=== PATIENT | male | born 1930 ===

== ENCOUNTER 2018-01-26 15:54 | Inpatient (IN) | payer MEDICARE, OTHER ==
[2018-01-26] MEDS ORDERED: Sodium Chloride 0.9% 1,000 ML IV SCH (17:15)
[2018-01-26 17:21] LABS: BASO % 1.1 % (0.0-2.0); EOS % 0.8 % (0.0-4.0); HEMOGLOBIN 12.2 g/dL (12.0-18.0); LYMPH # 0.6 K/uL (1.0-4.3); LYMPH % 67.7 % (20.0-40.0); MEAN CELL VOLUME 91.9 fL (80.0-94.0); MEAN CORPUSCULAR HEMOGLOBIN 31.2 pg (27.0-31.0); MEAN PLATELET VOLUME 8.6 fL (7.2-11.7); MONO % 5.4 % (0.0-10.0); NEUT # 0.2 K/uL (1.8-7.0); NRBC % 0.2 % (0.0-2.0); RBC 3.93 Mil/uL (4.40-5.90); RED CELL DISTRIBUTION WIDTH 14.6 % (11.5-14.5)
[2018-01-26 17:24] LABS: WHITE BLOOD COUNT 0.9 K/uL (4.8-10.8)
[2018-01-26 17:25] LABS: INR 1.1; PROTHROMBIN TIME 11.8 SECONDS (9.7-12.2)
[2018-01-26 17:32] LABS: ALB/GLOB RATIO 1.3 (1.0-2.1); ALBUMIN 4.2 g/dL (3.5-5.0); ALT/SGPT 26 U/L (21-72); AST/SGOT 28 U/L (17-59); BLOOD UREA NITROGEN 24 mg/dL (9-20); CALCIUM 8.8 mg/dl (8.6-10.4); GFR AFRICAN-AMERICAN > 60; GFR NON-AFRICAN AMERICAN > 60
--- NOTE | 2018-01-26 17:52 | C.PDOC ---
History Of Present Illness 87 y/o male, w/PMHX of HTN and CLL, presents to the ER complaining of weakness and decreased appetite x 3 days. Also notes he has been having left sided neck pain and abdominal pain, notes he has had this pain intermittently for the last month. Had a normal BM today. Pt was put on low dose chemotherapy x 2 cycles. His initial WBC was 90 K and his WBC is 1.2 K now. Patient reports that he was seen by a a manufacturing scheduler, Dr. Patel today and he was instructed to come to the ER for further evaluation. Time Seen by Provider: 01/26/18 16:39 Chief Complaint (Nursing): Weakness/Neurological Deficit History Per: [employer] History/Exam Limitations: clinical condition, language barrier Onset/Duration Of Symptoms: Days Current Symptoms Are (Timing): Still Present Severity: Moderate Past Medical History Reviewed: Historical Data, Nursing Documentation, Vital Signs Vital Signs: Last Vital Signs Temp 97.9 F 01/26/18 16:31 Pulse 77 01/26/18 18:20 Resp 18 01/26/18 18:20 BP 114/63 01/26/18 18:20 Pulse Ox 100 01/26/18 18:20 - Medical History PMH: Gall Bladder Disease, HTN, Hypercholesterolemia, Malignancy (Chronic lymphocytic leukemia) Surgical History: Cholecystectomy Family History: States: No Known Family Hx - Social History Hx Alcohol Use: No Hx Substance Use: No - Immunization History Hx Influenza Vaccination: Yes Hx Pneumococcal Vaccination: Yes Review Of Systems Except As Marked, All Systems Reviewed And Found Negative. Constitutional: Positive for: Weakness. Negative for: Fever, Chills Gastrointestinal: Positive for: Abdominal Pain Musculoskeletal: Positive for: Neck Pain Physical Exam - Physical Exam Appears: Non-toxic, No Acute Distress, Chronically Ill Skin: Normal Color, Warm, Dry Head: Atraumatic, Normacephalic Eye(s): bilateral: Normal Inspection, EOMI Nose: Normal Oral Mucosa: Moist Neck: Normal ROM, Paracervical Tenderness ((+) left sided paracervical tenderness), Supple Lymphatic: Adenopathy (? left sided cervical lymphadenopathy) Chest: Symmetrical Cardiovascular: Rhythm Regular Respiratory: Normal Breath Sounds, No Rales, No Rhonchi, No Wheezing Gastrointestinal/Abdominal: Soft, Tenderness (diffuse tenderness), Distention ( distended) Extremity: Normal ROM Neurological/Psych: Oriented x3, Normal Speech ED Course And Treatment - Laboratory Results Result Diagrams: 01/26/18 17:14 01/26/18 17:14 O2 Sat by Pulse Oximetry: 100 (RA) Pulse Ox Interpretation: Normal - CT Scan/US CT- Abd & Pelv. Other Rad Studies (CT/US): Read By Radiologist, Radiology Report Reviewed CT/US Interpretation: PROCEDURE: Radiographs of the chest and abdomen ( obstructive series). HISTORY: Abd Pain. COMPARISON: No prior. TECHNIQUE: AP radiograph of the chest, with upright and supine radiographs of the abdomen. FINDINGS: CHEST: Lungs: Clear. Cardiovascular: Normal size heart. No pulmonary vascular congestion. Pleura: No pleural fluid. No pneumothorax. Other findings: None. ABDOMEN AND PELVIS: Bowel: Unremarkable bowel gas pattern. No evidence of mechanical obstruction. Free air: None. Bones: Unremarkable. Other findings: None. IMPRESSION: Unremarkable radiographs of chest and abdomen. No evidence of mechanical bowel obstruction. Progress Note: Case discussed with Dr. Patel who requests admission under the service of Dr. Camarillo. Also orders Granix as ordered. Dr. Patel will be on consult. Case discussed with Dr Camarillo, who evaluated pt in ED. Neck and abd CT ordered. Disposition - Disposition Disposition Time: 18:00 Condition: STABLE - Clinical Impression Clinical Impression: CLL (chronic lymphocytic leukemia), Dehydration, Abdominal pain, Neutropenia, Leukopenia - PA / CARE TRAINER / Resident Statement MD/DO has reviewed & agrees with the documentation as recorded. - Scribe Statement The provider has reviewed the documentation as recorded by the Grant Castillo Provider Attestation All medical record entries made by the Grant were at my direction and personally dictated by me. I have reviewed the chart and agree that the record accurately reflects my personal performance of the history, physical exam, medical decision making, and the department course for this patient. I have also personally directed, reviewed, and agree with the discharge instructions and disposition.
[2018-01-26 18:03] LABS: SQUAMOUS EPITHIAL 1 /hpf (0-5); URINE BILIRUBIN NEGATIVE (NEGATIVE); URINE BLOOD NEGATIVE (NEGATIVE); URINE CLARITY Hazy (Clear); URINE COLOR Yellow (YELLOW); URINE GLUCOSE (UA) NORMAL (Normal); URINE LEUKOCYTE ESTERASE NEG Leu/uL (Negative); URINE PROTEIN NEGATIVE (NEGATIVE); URINE UROBILINOGEN NORMAL mg/dL (0.2-1.0)
[2018-01-26] MEDS ORDERED: Sodium Chloride 0.9% 1,000 ML ONE (18:19)
[2018-01-26 18:20] LABS: CK-MB < 0.22 ng/mL (0.0-3.38)
--- NOTE | 2018-01-26 18:29 | CP.PCM.HP ---
History of Present Illness - History of Present Illness History of Present Illness: Chief complaint: Weakness History of present illness: 87-year-old male with a history of hypertension and recently diagnosed with CLL and associated lymphadenopathy, status post chemotherapy 1 week ago. Patient went to see oncologist to today. While he was there he was complaining of at least 3-4 days of weakness, fatigability, tiredness. He was also accompanied of difficulty in swallowing, neck pain, diffuse abdominal pain. Episodes of constipation and diarrhea noted. According to the patient's who speaks only Russian patient was having symptoms for at least 3 days. He is not eating well. His blood pressures on the low side compared to his hypertensive blood pressure. He has no appetite, chills present, no fever. He has no headache, neck pain and abdominal pain diffusely noted Present on Admission - Present on Admission Any Indicators Present on Admission: No History of DVT/PE: No History of Uncontrolled Diabetes: No Urinary Catheter: No Decubitus Ulcer Present: No Review of Systems - Review of Systems Review of Systems: Patient complaining of some neck pain, especially in the back of the neck and radiating to the shoulder. Complaining of abdominal diffuse pain. Nausea, but no vomiting. Poor appetite and poor intake for 3 days. Constipation and diarrhea noted. No leg swelling. No urinary symptoms. Denies any chest pain, no cough noted. No recent sick exposure. Patient was recently received a chemotherapy for CLL Past Patient History - Tetanus Immunizations Tetanus Immunization: Unknown - Past Social History Smoking Status: Never Smoked Chewing Tobacco Use: No Cigar Use: No Alcohol: None Home Situation {Lives}: With Family - CARDIAC Hx Hypercholesterolemia: Yes Hx Hypertension: Yes - HEENT Hx Glaucoma: Yes - HEMATOLOGICAL/ONCOLOGICAL Hx Blood Disorders: Yes Hx Cancer: Yes (leukemia) - GASTROINTESTINAL Hx Gall Bladder Disease: Yes (status post gallbladder cholecystectomy) - PSYCHIATRIC Hx Substance Use: No - SURGICAL HISTORY Hx Cholecystectomy: Yes - ANESTHESIA Hx Anesthesia: Yes Hx Anesthesia Reactions: No Hx Malignant Hyperthermia: No Meds Allergies/Adverse Reactions: Allergies Allergy/AdvReac Type Severity Reaction Status Date / Time No Known Allergies Allergy Verified 01/26/18 16:30 Physical Exam - Constitutional Additional comments: The patient is not in any distress. No oral thrush noted. Not tachycardic at this time. Blood pressure is on the low side. Chest good air entry bilaterally no wheezing noted Regular heart sound nontender abdomen no pedal edema seen a solitary client attends the functional neurological deficit Results - Vital Signs Recent Vital Signs: Last Vital Signs Temp 97.9 F 01/26/18 16:31 Pulse 81 01/26/18 16:31 Resp 18 01/26/18 16:31 BP 106/71 01/26/18 16:31 Pulse Ox 100 01/26/18 17:59 - Labs Result Diagrams: 01/26/18 17:14 01/26/18 17:14 Labs: Laboratory Results - last 24 hr 01/26/18 01/26/18 01/26/18 17:14 17:14 17:14 WBC 0.9 L* RBC 3.93 L Hgb 12.2 Hct 36.1 MCV 91.9 MCH 31.2 H MCHC 34.0 RDW 14.6 H Plt Count 172 MPV 8.6 Neut % (Auto) 25.0 L Lymph % (Auto) 67.7 H [place] % (Auto) 5.4 Eos % (Auto) 0.8 Baso % (Auto) 1.1 Neut # (Auto) 0.2 L Lymph # (Auto) 0.6 L [place] # (Auto) 0.0 Eos # (Auto) 0.0 Baso # (Auto) 0.0 PT 11.8 INR 1.1 APTT 28 Sodium 142 Potassium 4.4 Chloride 102 Carbon Dioxide 24 Anion Gap 20 BUN 24 H Creatinine 0.9 Est GFR ( Amer) > 60 Est GFR (Non-Af Amer) > 60 Random Glucose 125 H Calcium 8.8 Total Bilirubin 0.9 AST 28 ALT 26 Alkaline Phosphatase 157 H D Lactate Dehydrogenase Total Creatine Kinase CK-MB (Mass) Troponin I Total Protein 7.3 Albumin 4.2 Globulin 3.1 Albumin/Globulin Ratio 1.3 Urine Color Urine Clarity Urine pH Ur Specific [place] Urine Protein Urine Glucose (UA) Urine Ketones Urine Blood Urine Nitrate Urine Bilirubin Urine Urobilinogen Ur Leukocyte Esterase Urine WBC (Auto) Urine RBC (Auto) Ur Squamous Epith Cells Hyaline Casts 01/26/18 01/26/18 17:45 17:45 WBC RBC Hgb Hct MCV MCH MCHC RDW Plt Count MPV Neut % (Auto) Lymph % (Auto) [place] % (Auto) Eos % (Auto) Baso % (Auto) Neut # (Auto) Lymph # (Auto) [place] # (Auto) Eos # (Auto) Baso # (Auto) PT INR APTT Sodium Potassium Chloride Carbon Dioxide Anion Gap BUN Creatinine Est GFR ( Amer) Est GFR (Non-Af Amer) Random Glucose Calcium Total Bilirubin AST ALT Alkaline Phosphatase Lactate Dehydrogenase 1040 H Total Creatine Kinase < 20 L CK-MB (Mass) < 0.22 Troponin I < 0.0120 Total Protein Albumin Globulin Albumin/Globulin Ratio Urine Color Yellow Urine Clarity Hazy Urine pH 5.0 Ur Specific [place] 1.018 Urine Protein Negative Urine Glucose (UA) Normal Urine Ketones Negative Urine Blood Negative Urine Nitrate Negative Urine Bilirubin Negative Urine Urobilinogen Normal Ur Leukocyte Esterase Neg Urine WBC (Auto) 4 Urine RBC (Auto) 1 Ur Squamous Epith Cells 1 Hyaline Casts 11-20 H Assessment & Plan (1) Colitis Status: Acute (2) Abdominal pain Status: Acute (3) Lymphoma Status: Acute (4) Neutropenia associated with gastrointestinal mucositis Assessment and Plan: 86-year-old male recently received a chemotherapy for her chronic lymphoid leukemia with lymphadenopathy P Patient is now having neutropenia, unexplained. Hypotension unexplained. Underlying sepsis cannot be ruled out, dehydration possible. Will start the patient on intravenous IV fluid. A repeat blood works. Oncology evaluation. Will hold antibiotic for next 12 hours, and to see the improvement. Patient may need antibiotic if there is any worsening condition. Reverse isolation. And will follow-up the patient Status: Acute
[2018-01-26] MEDS: Sodium Chloride 0.9% 1,000 ML IV SCH (18:49)
[2018-01-26 18:56] LABS: URIC ACID 11.6 mg/dL (3.5-8.5)
[2018-01-26] MEDS ORDERED: Iohexol 240 (50 ml) PO ONE (18:56)
[2018-01-26] MEDS ORDERED: Iohexol 240 (50 ml) ONE (19:24)
[2018-01-27 07:33] VITALS: RESP 20
[2018-01-27 07:53] LABS: HEMOGLOBIN 11.4 g/dL (12.0-18.0); MEAN CORPUSCULAR HEMOGLOBIN 31.7 pg (27.0-31.0); MEAN CORPUSCULAR HGB CONC 34.5 g/dL (33.0-37.0); MEAN PLATELET VOLUME 8.7 fL (7.2-11.7); PLATELET COUNT 137 K/uL (130-400); RED CELL DISTRIBUTION WIDTH 14.7 % (11.5-14.5)
[2018-01-27 07:56] LABS: WHITE BLOOD COUNT 0.8 K/uL (4.8-10.8)
[2018-01-27 08:00] LABS: ALB/GLOB RATIO 1.3 (1.0-2.1); ALBUMIN 3.7 g/dL (3.5-5.0); ALT/SGPT 27 U/L (21-72); AST/SGOT 25 U/L (17-59); BLOOD UREA NITROGEN 19 mg/dL (9-20); CALCIUM 8.7 mg/dl (8.6-10.4); GFR AFRICAN-AMERICAN > 60; GFR NON-AFRICAN AMERICAN > 60
[2018-01-27] MEDS: Sodium Chloride 0.9% 1,000 ML IV SCH ×2 (08:25→21:46)
[2018-01-27 09:48] LABS: LYMPH # 0.4 K/uL (1.0-4.3); NEUT # 0.3 K/uL (1.8-7.0)
[2018-01-27 09:50] LABS: BASOPHIL 4 % (0-2); EOSINOPHIL 2 % (0-4); LYMPHOCYTE 50 % (20-40); MONOCYTE 4 % (0-10); NEUTROPHIL 40 % (50-75); PLATELET ESTIMATE NORMAL (NORMAL); TOTAL CELLS COUNTED 100
[2018-01-27 09:51] LABS: HYPOCHROMIC SLIGHT
--- NOTE | 2018-01-27 10:02 | CT ---
PROCEDURE: CT Abdomen and Pelvis without intravenous contrast HISTORY: lymphadenopathy, abdominal pain COMPARISON: None. TECHNIQUE: Technique. Contrast Dose: Radiation dose: Total exam DLP = Total exam DLP = mGy-cm. This CT exam was performed using one or more of the following dose reduction techniques: Automated exposure control, adjustment of the mA and/or kV according to patient size, and/or use of iterative reconstruction technique. FINDINGS: LOWER THORAX: Unremarkable. LIVER: Unremarkable. No gross lesion or ductal dilatation. GALLBLADDER AND BILE DUCTS: Status post cholecystectomy. PANCREAS: Unremarkable. No gross lesion or ductal dilatation. SPLEEN: Unremarkable. ADRENALS: Unremarkable. No mass. KIDNEYS AND URETERS: Bilateral renal cysts. . No hydronephrosis. No solid mass. VASCULATURE: Unremarkable. No aortic aneurysm. BOWEL: Large confluent lymph node mass in the central mesenteric suspicious for lymphoma with associated mild infiltrated changes in the surrounding mesenteric fat. APPENDIX: Unremarkable. Normal appendix. PERITONEUM: Unremarkable. No free fluid. No free air. LYMPH NODES: Unremarkable. No enlarged lymph nodes. BLADDER: Unremarkable. REPRODUCTIVE: Unremarkable. BONES: No acute fracture. OTHER FINDINGS: None. IMPRESSION: Large confluent lymph node mass in the central mesenteric suspicious for lymphoma with associated mild infiltrated changes in the surrounding mesenteric fat.
--- NOTE | 2018-01-27 10:40 | CT ---
PROCEDURE: CT NECK WITHOUT CONTRAST HISTORY: paraspinal spasm, lymphadenopathy COMPARISON: None. TECHNIQUE: CT of the neck without intravenous contrast. Coronal and sagittal reformats generated. Radiation dose: DLP 435.22 mGy-cm This CT exam was performed using one or more of the following dose reduction techniques: Automated exposure control, adjustment of the mA and/or kV according to patient size, and/or use of iterative reconstruction technique. FINDINGS: NASOPHARYNX: Unremarkable. SUPRAHYOID NECK: Unremarkable oropharynx, oral cavity, parapharyngeal space and retropharyngeal space. INFRAHYOID NECK: Unremarkable larynx, hypopharynx, and supraglottic space. Vocal cords intact. MASS: None. GLANDS: Parotid and submandibular glands unremarkable. Normal size thyroid gland, without nodule. LYMPH NODES: [place] level 1 and 2 cervical nodes. No substantially enlarged cervical lymph nodes (> than 1.5 centimeter short axis). CERVICAL SPINE: No fracture. 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 OTHER FINDINGS: No significant cervical lymphadenopathy. IMPRESSION: Unremarkable non-contrast enhanced CT of the neck.
--- NOTE | 2018-01-27 12:49 | CARD ---
APPROVED REPORT EKG Measurement Heart [id number] <Conclusion> Normal sinus rhythm Left axis deviation Voltage criteria for left ventricular hypertrophy Abnormal ECG
--- NOTE | 2018-01-27 17:02 | CP.PCM.CON ---
History of Present Illness - History of Present Illness History of Present Illness: 87 yo man with newly diagnosed Chronic lymphocytic leukemia, when he presented with a WBC count of 90K, bulky lymph nodes, s/p treatment with Treanda/Rituxan, seen in the office yesterday for follow up, found to be weak, c/o abdominal pain , poor appetite, CBC done showed severe neutropenia, admitted for IV hydration, neupogen and evaluation of abdominal pain. Denies fever, chills, nausea, vomiting, diarrhea, mouth sores or dysphagia. Past Patient History - Tetanus Immunizations Tetanus Immunization: Unknown - Past Medical History & Family History Past Medical History?: Yes - Past Social History Smoking Status: Never Smoked - CARDIAC Hx Cardiac Disorders: Yes Hx Hypercholesterolemia: Yes Hx Hypertension: Yes - PULMONARY Hx Respiratory Disorders: No - NEUROLOGICAL Hx Neurological Disorder: No - HEENT Hx HEENT Problems: Yes Hx Glaucoma: Yes - RENAL Hx Chronic Kidney Disease: No - ENDOCRINE/METABOLIC Hx Endocrine Disorders: No - HEMATOLOGICAL/ONCOLOGICAL Hx Blood Disorders: Yes Hx Cancer: Yes (leukemia) Hx Chemotherapy: Yes (1 week ago) - INTEGUMENTARY Hx Dermatological Problems: No - MUSCULOSKELETAL/RHEUMATOLOGICAL Hx Musculoskeletal Disorders: No Hx Falls: No - GASTROINTESTINAL Hx Gastrointestinal Disorders: Yes Hx Gall Bladder Disease: Yes - GENITOURINARY/GYNECOLOGICAL Hx Genitourinary Disorders: No - PSYCHIATRIC Hx Psychophysiologic Disorder: No Hx Substance Use: No - SURGICAL HISTORY Hx Surgeries: Yes Hx Cholecystectomy: Yes - ANESTHESIA Hx Anesthesia: Yes Hx Anesthesia Reactions: No Hx Malignant Hyperthermia: No Meds Allergies/Adverse Reactions: Allergies Allergy/AdvReac Type Severity Reaction Status Date / Time No Known Allergies Allergy Verified 01/26/18 16:30 - Medications Medications: Current Medications Heparin Sodium (Porcine) (Heparin) 5,000 units SC Q12 [facility] Last Admin: 01/27/18 10:37 Dose: 5,000 units Sodium Chloride (Sodium Chloride 0.9%) 1,000 mls @ 75 mls/hr IV .[id number] [facility] Last Admin: 01/27/18 08:25 Dose: Not Given Pantoprazole Sodium (Protonix Inj) 40 mg IVP DAILY [facility] Last Admin: 01/27/18 10:37 Dose: 40 mg Results - Vital Signs Recent Vital Signs: Last Vital Signs Temp 98.8 F 01/27/18 15:27 Pulse 87 01/27/18 15:27 Resp 20 05/08/18 15:27 BP 109/73 01/27/18 15:27 Pulse Ox 98 01/27/18 15:27 - Labs Result Diagrams: 01/27/18 07:35 01/27/18 07:35 Labs: Laboratory Results - last 24 hr 01/26/18 01/26/18 01/26/18 16:34 17:14 17:14 WBC 0.9 L* RBC 3.93 L Hgb 12.2 Hct 36.1 MCV 91.9 MCH 31.2 H MCHC 34.0 RDW 14.6 H Plt Count 172 MPV 8.6 Neut % (Auto) 25.0 L Lymph % (Auto) 67.7 H [place] % (Auto) 5.4 Eos % (Auto) 0.8 Baso % (Auto) 1.1 Neut # (Auto) 0.2 L Lymph # (Auto) 0.6 L [place] # (Auto) 0.0 Eos # (Auto) 0.0 Baso # (Auto) 0.0 Neutrophils % (Manual) Lymphocytes % (Manual) Monocytes % (Manual) Eosinophils % (Manual) Basophils % (Manual) Differential Comment Platelet Estimate Hypochromasia (manual) Smear Path Review PT INR APTT Sodium 142 Potassium 4.4 Chloride 102 Carbon Dioxide 24 Anion Gap 20 BUN 24 H Creatinine 0.9 Est GFR ( Amer) > 60 Est GFR (Non-Af Amer) > 60 POC Glucose (mg/dL) 148 H Random Glucose 125 H Uric Acid Calcium 8.8 Phosphorus Magnesium Total Bilirubin 0.9 AST 28 ALT 26 Alkaline Phosphatase 157 H D Lactate Dehydrogenase Total Creatine Kinase CK-MB (Mass) Troponin I Total Protein 7.3 Albumin 4.2 Globulin 3.1 Albumin/Globulin Ratio 1.3 Urine Color Urine Clarity Urine pH Ur Specific [place] Urine Protein Urine Glucose (UA) Urine Ketones Urine Blood Urine Nitrate Urine Bilirubin Urine Urobilinogen Ur Leukocyte Esterase Urine WBC (Auto) Urine RBC (Auto) Ur Squamous Epith Cells Hyaline Casts 01/26/18 01/26/18 01/26/18 17:14 17:45 17:45 WBC RBC Hgb Hct MCV MCH MCHC RDW Plt Count MPV Neut % (Auto) Lymph % (Auto) [place] % (Auto) Eos % (Auto) Baso % (Auto) Neut # (Auto) Lymph # (Auto) [place] # (Auto) Eos # (Auto) Baso # (Auto) Neutrophils % (Manual) Lymphocytes % (Manual) Monocytes % (Manual) Eosinophils % (Manual) Basophils % (Manual) Differential Comment Platelet Estimate Hypochromasia (manual) Smear Path Review PT 11.8 INR 1.1 APTT 28 Sodium Potassium Chloride Carbon Dioxide Anion Gap BUN Creatinine Est GFR ( Amer) Est GFR (Non-Af Amer) POC Glucose (mg/dL) Random Glucose Uric Acid Calcium Phosphorus Magnesium Total Bilirubin AST ALT Alkaline Phosphatase Lactate Dehydrogenase 1040 H Total Creatine Kinase < 20 L CK-MB (Mass) < 0.22 Troponin I < 0.0120 Total Protein Albumin Globulin Albumin/Globulin Ratio Urine Color Yellow Urine Clarity Hazy Urine pH 5.0 Ur Specific [place] 1.018 Urine Protein Negative Urine Glucose (UA) Normal Urine Ketones Negative Urine Blood Negative Urine Nitrate Negative Urine Bilirubin Negative Urine Urobilinogen Normal Ur Leukocyte Esterase Neg Urine WBC (Auto) 4 Urine RBC (Auto) 1 Ur Squamous Epith Cells 1 Hyaline Casts 11-20 H 01/26/18 01/27/18 01/27/18 18:45 07:35 07:35 WBC 0.8 L* RBC 3.60 L Hgb 11.4 L Hct 33.1 L MCV 92.0 MCH 31.7 H MCHC 34.5 RDW 14.7 H Plt Count 137 MPV 8.7 Neut % (Auto) 40.0 L Lymph % (Auto) 50.0 H [place] % (Auto) 4.0 Eos % (Auto) 2.0 Baso % (Auto) 4.0 H Neut # (Auto) 0.3 L Lymph # (Auto) 0.4 L [place] # (Auto) 0.0 Eos # (Auto) 0.0 Baso # (Auto) 0.0 Neutrophils % (Manual) 40 L Lymphocytes % (Manual) 50 H Monocytes % (Manual) 4 Eosinophils % (Manual) 2 Basophils % (Manual) 4 H Differential Comment Platelet Estimate Normal Hypochromasia (manual) Slight Smear Path Review PT INR APTT Sodium 141 Potassium 3.9 Chloride 106 Carbon Dioxide 25 Anion Gap 14 BUN 19 Creatinine 0.9 Est GFR ( Amer) > 60 Est GFR (Non-Af Amer) > 60 POC Glucose (mg/dL) Random Glucose 109 Uric Acid 11.6 H Calcium 8.7 Phosphorus 3.9 Magnesium 2.4 H Total Bilirubin 1.5 H AST 25 ALT 27 Alkaline Phosphatase 163 H Lactate Dehydrogenase 806 H Total Creatine Kinase < 20 L CK-MB (Mass) Troponin I Total Protein 6.5 Albumin 3.7 Globulin 2.8 Albumin/Globulin Ratio 1.3 Urine Color Urine Clarity Urine pH Ur Specific [place] Urine Protein Urine Glucose (UA) Urine Ketones Urine Blood Urine Nitrate Urine Bilirubin Urine Urobilinogen Ur Leukocyte Esterase Urine WBC (Auto) Urine RBC (Auto) Ur Squamous Epith Cells Hyaline Casts Assessment & Plan (1) CLL (chronic lymphocytic leukemia) Assessment and Plan: CLL with severe neutropenia associated with chemotherapy, admitted for IVF, neupogen, work up of abdominal pain. Status: Acute
--- NOTE | 2018-01-27 19:39 | CP.PCM.PN ---
Subjective - Date & Time of Evaluation Date of Evaluation: 01/27/18 Time of Evaluation: 19:38 - Subjective Subjective: Patient now having much improvement and abdominal pain. He is feeling a little better. He is eating well. But is still his white count is still on the low side. I spoke to the oncologist. Will closely monitor the patient. Diarrhea noted. No nausea no vomiting, no fever currently. Closely monitor the vital statistics , as long as there is no fever or any signs of infection we will hold off antibiotic. Objective - Vital Signs/Intake and Output Vital Signs (last 24 hours): Temp Pulse Resp BP Pulse Ox 98.8 F 87 20 109/73 98 01/27/18 15:27 01/27/18 15:27 01/27/18 15:27 01/27/18 15:27 01/27/18 15:27 Intake and Output: 01/27/18 01/28/18 18:59 06:59 Intake Total 1215 Balance 1215 Chest good air entry L house nontender, no pedal edema [employer] alert awake oriented 3 no functional neurologic deficit - Medications Medications: Current Medications Heparin Sodium (Porcine) (Heparin) 5,000 units SC Q12 REPLAC[facility] BY [facility] Last Admin: 01/27/18 10:37 Dose: 5,000 units Sodium Chloride (Sodium Chloride 0.9%) 1,000 mls @ 75 mls/hr IV .[id number] REPLACED BY [facility] Last Admin: 01/27/18 08:25 Dose: Not Given Pantoprazole Sodium (Protonix Inj) 40 mg IVP DAILY REPLACED BY [facility] Last Admin: 01/27/18 10:37 Dose: 40 mg - Labs Labs: 01/27/18 07:35 01/27/18 07:35 PT 11.8 SECONDS (9.7-12.2) 01/26/18 17:14 INR 1.1 01/26/18 17:14 APTT 28 SECONDS (21-34) 01/26/18 17:14 Assessment and Plan (1) Colitis Assessment & Plan: CAT scan of the abdomen and pelvis showing no evidence of colitis. Patient has intra-abdominal lymphadenopathy Patient has a history of lymphoma, received chemotherapy, currently having significant low neutrophil count likely secondary to chemotherapy. Will observe and will follow the patient Status: Acute (2) Abdominal pain Status: Acute (3) Lymphoma Status: Acute (4) Neutropenia associated with gastrointestinal mucositis Assessment & Plan: We will watch for any signs of infection. Empirical antibiotic may be needed and will closely watch Status: Acute
[2018-01-28 08:18] LABS: BASO % 1.1 % (0.0-2.0); EOS % 1.8 % (0.0-4.0); HEMOGLOBIN 9.6 g/dL (12.0-18.0); LYMPH # 0.3 K/uL (1.0-4.3); LYMPH % 43.1 % (20.0-40.0); MEAN CELL VOLUME 92.7 fL (80.0-94.0); MEAN CORPUSCULAR HEMOGLOBIN 32.3 pg (27.0-31.0); MEAN CORPUSCULAR HGB CONC 34.8 g/dL (33.0-37.0); MEAN PLATELET VOLUME 8.8 fL (7.2-11.7); MONO # 0.1 K/uL (0.0-0.8); MONO % 7.8 % (0.0-10.0); NEUT # 0.3 K/uL (1.8-7.0); NEUT % 46.2 % (50.0-75.0); NRBC % 0.1 % (0.0-2.0); RBC 2.97 Mil/uL (4.40-5.90); RED CELL DISTRIBUTION WIDTH 14.3 % (11.5-14.5)
[2018-01-28 08:22] LABS: WHITE BLOOD COUNT 0.7 K/uL (4.8-10.8)
[2018-01-28 08:38] LABS: ALB/GLOB RATIO 1.3 (1.0-2.1); ALBUMIN 3.3 g/dL (3.5-5.0); ALT/SGPT 21 U/L (21-72); AST/SGOT 17 U/L (17-59); BLOOD UREA NITROGEN 17 mg/dL (9-20); CALCIUM 8.2 mg/dl (8.6-10.4); GFR AFRICAN-AMERICAN > 60; GFR NON-AFRICAN AMERICAN > 60
[2018-01-28] MEDS: Sodium Chloride 0.9% 1,000 ML IV SCH ×2 (10:14→19:08)
[2018-01-29 07:09] LABS: BASO % 1.4 % (0.0-2.0); EOS % 1.8 % (0.0-4.0); HEMOGLOBIN 9.4 g/dL (12.0-18.0); LYMPH # 0.3 K/uL (1.0-4.3); LYMPH % 45.6 % (20.0-40.0); MEAN CELL VOLUME 92.6 fL (80.0-94.0); MEAN CORPUSCULAR HEMOGLOBIN 31.5 pg (27.0-31.0); MEAN PLATELET VOLUME 8.7 fL (7.2-11.7); MONO % 6.6 % (0.0-10.0); NEUT # 0.3 K/uL (1.8-7.0); NEUT % 44.6 % (50.0-75.0); NRBC % 0.4 % (0.0-2.0); RBC 2.99 Mil/uL (4.40-5.90); RED CELL DISTRIBUTION WIDTH 14.2 % (11.5-14.5)
[2018-01-29 07:12] LABS: WHITE BLOOD COUNT 0.7 K/uL (4.8-10.8)
--- NOTE | 2018-01-29 19:44 | CP.PCM.PN ---
Subjective - Date & Time of Evaluation Date of Evaluation: 01/29/18 Time of Evaluation: 19:43 - Subjective Subjective: The patient is feeling much better, improved appetite, no further night sweats or chills. BP improved, no diarrhea today. Objective - Vital Signs/Intake and Output Vital Signs (last 24 hours): Temp Pulse Resp BP Pulse Ox 98.5 F 73 20 120/75 98 01/29/18 15:00 01/29/18 15:00 01/29/18 15:00 01/29/18 15:00 01/29/18 15:00 Intake and Output: 01/29/18 01/30/18 18:59 06:59 Intake Total 300 Balance 300 - Medications Medications: Current Medications Heparin Sodium (Porcine) (Heparin) 5,000 units SC Q12 [facility] Last Admin: 01/29/18 09:46 Dose: 5,000 units Pantoprazole Sodium (Protonix Inj) 40 mg IVP DAILY [facility] Last Admin: 01/29/18 09:46 Dose: 40 mg - Labs Labs: 01/29/18 06:53 01/28/18 08:11 PT 11.8 SECONDS (9.7-12.2) 01/26/18 17:14 INR 1.1 01/26/18 17:14 APTT 28 SECONDS (21-34) 01/26/18 17:14 Assessment and Plan (1) CLL (chronic lymphocytic leukemia) Assessment & Plan: CLL, high risk features including age, increased LDH, elevated beta 2 microglobulin and poor risk cytogenetics including 17p deletion. Prolonged cytopenia, urine C&S with gram negative rods, asymptomatic, less than 10,000CFU. Plan- Repeat urine culture. If patient's labs remain stable, will consider D/C home tomorrow, with weekly CBC checks Status: Acute
[2018-01-30 07:25] LABS: BASO % 1.2 % (0.0-2.0); EOS % 3.8 % (0.0-4.0); LYMPH # 0.4 K/uL (1.0-4.3); LYMPH % 43.9 % (20.0-40.0); MEAN CELL VOLUME 93.4 fL (80.0-94.0); MEAN CORPUSCULAR HEMOGLOBIN 32.1 pg (27.0-31.0); MEAN CORPUSCULAR HGB CONC 34.4 g/dL (33.0-37.0); MEAN PLATELET VOLUME 8.9 fL (7.2-11.7); MONO # 0.1 K/uL (0.0-0.8); MONO % 8.9 % (0.0-10.0); NEUT # 0.3 K/uL (1.8-7.0); NEUT % 42.2 % (50.0-75.0); NRBC % 0.3 % (0.0-2.0); RBC 2.81 Mil/uL (4.40-5.90); RED CELL DISTRIBUTION WIDTH 14.3 % (11.5-14.5)
[2018-01-30 07:29] LABS: WHITE BLOOD COUNT 0.8 K/uL (4.8-10.8)
[2018-01-31 08:14] LABS: LYMPH # 0.4 K/uL (1.0-4.3); MEAN CELL VOLUME 93.2 fL (80.0-94.0); MEAN PLATELET VOLUME 9.2 fL (7.2-11.7); MONO # 0.1 K/uL (0.0-0.8); RED CELL DISTRIBUTION WIDTH 14.1 % (11.5-14.5)
[2018-01-31 08:21] LABS: BASO % 0.7 % (0.0-2.0); EOS % 1.5 % (0.0-4.0); HEMOGLOBIN 9.2 g/dL (12.0-18.0); LYMPH % 29.7 % (20.0-40.0); MEAN CORPUSCULAR HEMOGLOBIN 31.8 pg (27.0-31.0); MEAN CORPUSCULAR HGB CONC 34.1 g/dL (33.0-37.0); MONO % 5.9 % (0.0-10.0); NEUT # 0.8 K/uL (1.8-7.0); NEUT % 62.2 % (50.0-75.0); NRBC % 0.1 % (0.0-2.0); RBC 2.89 Mil/uL (4.40-5.90)
[2018-01-31 08:28] LABS: WHITE BLOOD COUNT 1.3 K/uL (4.8-10.8)
[2018-01-31 08:57] VITALS: BP 124/73; PULSE 78; TEMP 98.2; O2SAT 97
--- NOTE | 2018-01-31 12:33 | CP.PCM.PN ---
Subjective - Date & Time of Evaluation Date of Evaluation: 01/31/18 Time of Evaluation: 12:33 - Subjective Subjective: PATIENT SEEN AND EXAMINED AT THE BEDSIDE DENIES CHEST PAIN OR SOB/ DYSURIA/ HEADACHE NO SIGN OF DISTRESS NOTED Objective - Vital Signs/Intake and Output Vital Signs (last 24 hours): Temp Pulse Resp BP Pulse Ox 98.2 F 78 20 124/73 97 01/31/18 08:55 01/31/18 08:55 01/31/18 08:55 01/31/18 08:55 01/31/18 08:55 Intake and Output: 01/31/18 01/31/18 06:59 18:59 Intake Total 390 Balance 390 - Medications Medications: Current Medications Heparin Sodium (Porcine) (Heparin) 5,000 units SC Q12H [facility] Last Admin: 01/31/18 09:46 Dose: 5,000 units Pantoprazole Sodium (Protonix Inj) 40 mg IVP DAILY [facility] Last Admin: 01/31/18 09:46 Dose: 40 mg - Labs Labs: 01/31/18 08:03 01/28/18 08:11 PT 11.8 SECONDS (9.7-12.2) 01/26/18 17:14 INR 1.1 01/26/18 17:14 APTT 28 SECONDS (21-34) 01/26/18 17:14 Assessment and Plan - Assessment and Plan (Free Text) Assessment: PATIENT SEEN AND EXAMINED AT THE BEDSIDE LUNG SOUND CLEAR AFEBRILE/ WBC IS LOW AND NO SIGN OF INFECTION NOTED DICUSS WITH DR TRUONG WHO CLEAR PATIENT FOR DC FOLLOW UP WITH DR TRUONG AT THIS OFFICE IN 1-2 WEEKS ---CALL FOR APPOINTMENT FOLLOW UP WITH DR GRAY IN 1-2 WEEKS AT OFFICE ---CALL FOR APPOINTMENT CONTINUE ALL HOME MEDICATION ACITIVITY TOLERATED CALL DR TRUONG OR GO TO THE EMERGENCY ROOM IF SYMPTOMS RETURN OR WORSENING DISCUSS WITH PATIENT WHA AGREE AND VERBALIZED UNDERSTANDING
--- NOTE | 2018-02-26 20:47 | CP.PCM.PN ---
Subjective - Date & Time of Evaluation Date of Evaluation: 01/28/18 Time of Evaluation: 20:47 - Subjective Subjective: Patient is being closely monitored for any symptoms of fever. He still continues to have a low white count. On Neupogen. Vital signs stable. Chest good air entry regular heart sounds nontender abdomen. He is feeling better We will continue to monitor. We will follow the patient Objective - Vital Signs/Intake and Output Vital Signs (last 24 hours): Temp Pulse Resp BP Pulse Ox 98.2 F 78 20 124/73 97 01/31/18 08:55 01/31/18 08:55 01/31/18 08:55 01/31/18 08:55 01/31/18 08:55 - Labs Labs: 01/31/18 08:03 01/28/18 08:11 PT 11.8 SECONDS (9.7-12.2) 01/26/18 17:14 INR 1.1 01/26/18 17:14 APTT 28 SECONDS (21-34) 01/26/18 17:14 Assessment and Plan (1) Colitis Status: Acute (2) Abdominal pain Status: Acute (3) Lymphoma Status: Acute (4) Neutropenia associated with gastrointestinal mucositis Status: Acute
--- NOTE | 2018-02-26 20:47 | CP.PCM.PN ---
Subjective - Date & Time of Evaluation Date of Evaluation: 01/30/18 Time of Evaluation: 20:47 - Subjective Subjective: Patient is in not in any distress. No chest pain. No nausea. Clinically patient is doing well. No nausea vomiting. Vital signs stable. Chest good air entry. Regular heart sound. Assessment at admission: 87-year-old male with a history of leukemia status post chemotherapy. Admitted with a severe symptomatic leukopenia. Improving. Objective - Vital Signs/Intake and Output Vital Signs (last 24 hours): Temp Pulse Resp BP Pulse Ox 98.2 F 78 20 124/73 97 01/31/18 08:55 01/31/18 08:55 01/31/18 08:55 01/31/18 08:55 01/31/18 08:55 - Labs Labs: 01/31/18 08:03 01/28/18 08:11 PT 11.8 SECONDS (9.7-12.2) 01/26/18 17:14 INR 1.1 01/26/18 17:14 APTT 28 SECONDS (21-34) 01/26/18 17:14 Assessment and Plan (1) Colitis Status: Acute (2) Abdominal pain Status: Acute (3) Lymphoma Status: Acute (4) Neutropenia associated with gastrointestinal mucositis Status: Acute
--- NOTE | 2018-02-26 20:47 | CP.PCM.PN ---
Subjective - Date & Time of Evaluation Date of Evaluation: 01/29/18 Time of Evaluation: 20:47 - Subjective Subjective: There is a slight improvement in the WBC noted. No chest pain or shortness of breath. Denies any nausea vomiting. We will continue the current treatment. Once patient is stable will be discharged home Objective - Vital Signs/Intake and Output Vital Signs (last 24 hours): Temp Pulse Resp BP Pulse Ox 98.2 F 78 20 124/73 97 01/31/18 08:55 01/31/18 08:55 01/31/18 08:55 01/31/18 08:55 01/31/18 08:55 - Labs Labs: 01/31/18 08:03 01/28/18 08:11 PT 11.8 SECONDS (9.7-12.2) 01/26/18 17:14 INR 1.1 01/26/18 17:14 APTT 28 SECONDS (21-34) 01/26/18 17:14 Assessment and Plan (1) Colitis Status: Acute (2) Abdominal pain Status: Acute (3) Lymphoma Status: Acute (4) Neutropenia associated with gastrointestinal mucositis Status: Acute
--- NOTE | 2018-02-26 20:48 | CP.PCM.DIS ---
Provider - Provider Date of Admission: 01/26/18 17:57 Attending physician: Tamiko Camarillo MD Time Spent in preparation of Discharge (in minutes): 45 Diagnosis - Discharge Diagnosis (1) Colitis Status: Acute (2) Abdominal pain Status: Acute (3) Lymphoma Status: Acute (4) Neutropenia associated with gastrointestinal mucositis Status: Acute Hospital Course - Lab Results Lab Results: Micro Results 01/26/18 16:44 Blood Blood Culture - Final NO GROWTH AFTER 5 DAYS 01/26/18 16:44 Blood Gram Stain - Final TEST NOT PERFORMED 01/26/18 17:44 Blood Blood Culture - Final NO GROWTH AFTER 5 DAYS 01/26/18 17:44 Blood Gram Stain - Final TEST NOT PERFORMED 01/29/18 22:35 Urine Urine Culture - Final Gram Negative Lino 01/26/18 17:45 Urine Urine Culture - Final Gram Negative Lino Most Recent Lab Values WBC 1.3 K/uL (4.8-10.8) L* D 01/31/18 08:03 RBC 2.89 Mil/uL (4.40-5.90) L 01/31/18 08:03 Hgb 9.2 g/dL (12.0-18.0) L 01/31/18 08:03 Hct 26.9 % (35.0-51.0) L 01/31/18 08:03 MCV 93.2 fL (80.0-94.0) 01/31/18 08:03 MCH 31.8 pg (27.0-31.0) H 01/31/18 08:03 MCHC 34.1 g/dL (33.0-37.0) 01/31/18 08:03 RDW 14.1 % (11.5-14.5) 01/31/18 08:03 Plt Count 120 K/uL (130-400) L 01/31/18 08:03 MPV 9.2 fL (7.2-11.7) 01/31/18 08:03 Neut % (Auto) 62.2 % (50.0-75.0) 01/31/18 08:03 Lymph % (Auto) 29.7 % (20.0-40.0) 01/31/18 08:03 [place] % (Auto) 5.9 % (0.0-10.0) 01/31/18 08:03 Eos % (Auto) 1.5 % (0.0-4.0) 01/31/18 08:03 Baso % (Auto) 0.7 % (0.0-2.0) 01/31/18 08:03 Neut # (Auto) 0.8 K/uL (1.8-7.0) L 01/31/18 08:03 Lymph # (Auto) 0.4 K/uL (1.0-4.3) L 01/31/18 08:03 [place] # (Auto) 0.1 K/uL (0.0-0.8) 01/31/18 08:03 Eos # (Auto) 0.0 K/uL (0.0-0.7) 01/31/18 08:03 Baso # (Auto) 0.0 K/uL (0.0-0.2) 01/31/18 08:03 Neutrophils % (Manual) 40 % (50-75) L 01/27/18 07:35 Lymphocytes % (Manual) 50 % (20-40) H 01/27/18 07:35 Monocytes % (Manual) 4 % (0-10) 01/27/18 07:35 Eosinophils % (Manual) 2 % (0-4) 01/27/18 07:35 Basophils % (Manual) 4 % (0-2) H 01/27/18 07:35 Differential Comment 01/28/18 08:11 Platelet Estimate Normal (NORMAL) 01/27/18 07:35 Hypochromasia (manual) Slight 01/27/18 07:35 Smear Path Review 01/26/18 17:14 PT 11.8 SECONDS (9.7-12.2) 01/26/18 17:14 INR 1.1 01/26/18 17:14 APTT 28 SECONDS (21-34) 01/26/18 17:14 Sodium 141 mmol/L (132-148) 01/28/18 08:11 Potassium 4.0 mmol/L (3.6-5.2) 01/28/18 08:11 Chloride 110 mmol/L (98-107) H 01/28/18 08:11 Carbon Dioxide 24 mmol/L (22-30) 01/28/18 08:11 Anion Gap 12 (10-20) 01/28/18 08:11 BUN 17 mg/dL (9-20) 01/28/18 08:11 Creatinine 0.9 mg/dL (0.8-1.5) 01/28/18 08:11 Est GFR ( Amer) > 60 01/28/18 08:11 Est GFR (Non-Af Amer) > 60 01/28/18 08:11 POC Glucose (mg/dL) 148 mg/dL (65-110) H 01/26/18 16:34 Random Glucose 87 mg/dL (75-110) 01/28/18 08:11 Uric Acid 11.6 mg/dL (3.5-8.5) H 01/26/18 18:45 Calcium 8.2 mg/dl (8.6-10.4) L 01/28/18 08:11 Phosphorus 3.9 mg/dL (2.5-4.5) 01/26/18 18:45 Magnesium 2.4 mg/dL (1.6-2.3) H 01/26/18 18:45 Total Bilirubin 1.3 mg/dL (0.2-1.3) 01/28/18 08:11 AST 17 U/L (17-59) D 01/28/18 08:11 ALT 21 U/L (21-72) D 01/28/18 08:11 Alkaline Phosphatase 137 U/L (38-126) H 01/28/18 08:11 Lactate Dehydrogenase 806 U/L (313-618) H 01/27/18 07:35 Total Creatine Kinase < 20 U/L (55-170) L 01/27/18 07:35 CK-MB (Mass) < 0.22 ng/mL (0.0-3.38) 01/26/18 17:45 Troponin I < 0.0120 ng/mL (0.00-0.120) 01/26/18 17:45 Total Protein 5.7 g/dL (6.3-8.3) L 01/28/18 08:11 Albumin 3.3 g/dL (3.5-5.0) L 01/28/18 08:11 Globulin 2.5 gm/dL (2.2-3.9) 01/28/18 08:11 Albumin/Globulin Ratio 1.3 (1.0-2.1) 01/28/18 08:11 Urine Color Yellow (YELLOW) 01/26/18 17:45 Urine Clarity Hazy (Clear) 01/26/18 17:45 Urine pH 5.0 (5.0-8.0) 01/26/18 17:45 Ur Specific Tobias 1.018 (1.003-1.030) 01/26/18 17:45 Urine Protein Negative mg/dL (NEGATIVE) 01/26/18 17:45 Urine Glucose (UA) Normal mg/dL (Normal) 01/26/18 17:45 Urine Ketones Negative mg/dL (NEGATIVE) 01/26/18 17:45 Urine Blood Negative (NEGATIVE) 01/26/18 17:45 Urine Nitrate Negative (NEGATIVE) 01/26/18 17:45 Urine Bilirubin Negative (NEGATIVE) 01/26/18 17:45 Urine Urobilinogen Normal mg/dL (0.2-1.0) 01/26/18 17:45 Ur Leukocyte Esterase Neg Ronel/uL (Negative) 01/26/18 17:45 Urine WBC (Auto) 4 /hpf (0-5) 01/26/18 17:45 Urine RBC (Auto) 1 /hpf (0-3) 01/26/18 17:45 Ur Squamous Epith Cells 1 /hpf (0-5) 01/26/18 17:45 Hyaline Casts 11-20 /lpf (0-2) H 01/26/18 17:45 C. difficile Ag & Toxin Negative (NEGATIVE) 01/27/18 13:50 - Hospital Course Hospital Course: Patient is a 86-year-old male with history of hypertension, recently diagnosed with his CLL. Lymphadenopathy. Status post chemotherapy 1 week. Patient was complaining of increasing weakness fatigability or tiredness. Was also having some difficulty in swallowing, neck pain, diffuse abdominal pain. Constipation also noted. Patient was noted to have very low WBC in the student development coordinator office. So patient was sent to the emergency room with a symptomatic leukopenia. On examination: Vital signs stable. Temperature 97.1 blood pressure 106/71. Clinical examination is unremarkable. Vital signs are stable. Labs reviewed WBC noted to be 0.9 with a severe neutropenia absolute severe neutropenia noted. BUN and creatinine is normal Assessment and recommendation: 86-year-old male admitted to the hospital with acute leukopenia. Course in the hospital. Patient was seen by student development coordinator oncologist. He was started on IV fluid. Closely monitor for any fever, or sepsis symptoms. He was doing well. Neupogen started. Slowly WBC started improving. Clinically stable he will be discharged home. The latest WBC 1.9. He will follow-up as outpatient. Final diagnosis symptomatic leukopenia. Severe absolute neutropenia Status post chemotherapy-induced. CLL. Hypertension stable. Patient will follow up with oncologist as an outpatient. Discharge Plan - Discharge Medications Prescriptions: Lactose-Reduced Food [Ensure Enlive] 237 ml PO TID 15 Days liquid - Follow Up Plan Condition: STABLE Disposition: HOME/ ROUTINE Instructions: Chronic Lymphocytic Leukemia (CLL), Neutropenia (DC) Additional Instructions: FOLLOW UP WITH DR CAMARILLO AT THIS OFFICE IN 1-2 WEEKS ---CALL FOR APPOINTMENT FOLLOW UP WITH DR GRAY IN 1-2 WEEKS AT OFFICE ---CALL FOR APPOINTMENT CONTINUE ALL HOME MEDICATION ACITIVITY TOLERATED CALL DR CAMARILLO OR GO TO THE EMERGENCY ROOM IF SYMPTOMS RETURN OR WORSENING Referrals: Tamiko Camarillo MD [Staff Provider] - Maria Isabel Gray MD [Staff Provider] -
== END 2018-01-31 14:30 | disposition home or self-care (01) | DRG 841 ==
LOC: C.ER 15:54 → C.9E 17:57 → C.3T 17:57
PROVIDERS: ADMIT Internal Medicine; ATTEND Internal Medicine
DX: C91.10 Chronic lymphocytic leukemia of B-cell type not having achieved remission (principal); C85.90 Non-Hodgkin lymphoma, unspecified, unspecified site; K92.81 Gastrointestinal mucositis (ulcerative); D70.1 Agranulocytosis secondary to cancer chemotherapy; T45.1X5A Adverse effect of antineoplastic and immunosuppressive drugs, initial encounter; E78.00 Pure hypercholesterolemia, unspecified; H40.9 Unspecified glaucoma; I10 Essential (primary) hypertension; K52.9 Noninfective gastroenteritis and colitis, unspecified; K59.00 Constipation, unspecified; Z92.21 Personal history of antineoplastic chemotherapy; E86.0 Dehydration; R59.1 Generalized enlarged lymph nodes

== ENCOUNTER 2018-04-10 11:10 | Inpatient (IN) | payer MEDICARE, OTHER ==
[2018-04-10] MEDS ORDERED: Sodium Chloride 0.9% 500 ML IV ONE (11:51)
[2018-04-10] MEDS ORDERED: Iohexol 240 (50 ml) PO STA (11:54)
[2018-04-10] MEDS ORDERED: Iohexol 240 (50 ml) ONE (12:03)
[2018-04-10] MEDS ORDERED: Morphine 4 MG/ML VIAL ONE (12:03)
[2018-04-10] MEDS ORDERED: Sodium Chloride 0.9% 1,000 ML ONE (12:03)
[2018-04-10 12:18] LABS: BASO % 0.7 % (0.0-2.0); EOS % 0.6 % (0.0-4.0); LYMPH % 27.5 % (20.0-40.0); MEAN CORPUSCULAR HGB CONC 33.6 g/dL (33.0-37.0); MEAN PLATELET VOLUME 9.1 fL (7.2-11.7); MONO # 0.5 K/uL (0.0-0.8); MONO % 6.6 % (0.0-10.0); NEUT # 4.6 K/uL (1.8-7.0); NEUT % 64.6 % (50.0-75.0); NRBC % 0.1 % (0.0-2.0); RBC 4.37 Mil/uL (4.40-5.90); RED CELL DISTRIBUTION WIDTH 14.7 % (11.5-14.5); WHITE BLOOD COUNT 7.1 K/uL (4.8-10.8)
[2018-04-10 12:19] LABS: HEMOGLOBIN 12.2 g/dL (12.0-18.0); MEAN CELL VOLUME 83.2 fL (80.0-94.0)
[2018-04-10 12:29] LABS: ALB/GLOB RATIO 1.4 (1.0-2.1); ALBUMIN 3.9 g/dL (3.5-5.0); ALT/SGPT 28 U/L (21-72); AST/SGOT 18 U/L (17-59); BLOOD UREA NITROGEN 10 mg/dL (9-20); CALCIUM 9.1 mg/dl (8.6-10.4); GFR AFRICAN-AMERICAN > 60; GFR NON-AFRICAN AMERICAN > 60; LIPASE 59 U/L (23-300)
[2018-04-10] MEDS ORDERED: Iodixanol 320 mg/ml 150 ml Bottle IV ONE (13:27)
--- NOTE | 2018-04-10 13:30 | C.PDOC ---
History Of Present Illness 87 y/o male sent to the ER by oncologist, Dr. Patel, for evaluation of diffuse abdominal pain for 3 days. He states particularly when urinating he feels severe lower abdominal pain. Patient denies nausea, vomiting, diarrhea, dysuria/hematuria, chest pain, SOB, cough, or fever. Patient has a history of B- cell CLL, currently on chemotherapy. Time Seen by Provider: 04/10/18 11:12 Chief Complaint (Nursing): Abdominal Pain History Per: Patient History/Exam Limitations: no limitations Onset/Duration Of Symptoms: Days (x3) Current Symptoms Are (Timing): Still Present Severity: Moderate Location Of Pain/Discomfort: Diffuse Quality Of Discomfort: "Pain" Past Medical History Reviewed: Historical Data, Nursing Documentation, Vital Signs Vital Signs: Last Vital Signs Temp 98.4 F 04/14/18 00:09 Pulse 73 04/14/18 00:09 Resp 20 04/14/18 00:09 BP 158/82 H 04/14/18 00:09 Pulse Ox 97 04/14/18 00:09 - Medical History PMH: Gall Bladder Disease, HTN, Hypercholesterolemia, Malignancy (Chronic lymphocytic leukemia) Surgical History: Cholecystectomy Family History: States: No Known Family Hx - Social History Hx Alcohol Use: No Hx Substance Use: No - Immunization History Hx Influenza Vaccination: Yes Hx Pneumococcal Vaccination: Yes Review Of Systems Constitutional: Negative for: Fever, Chills Cardiovascular: Negative for: Chest Pain, Palpitations Respiratory: Negative for: Cough, Shortness of Breath Gastrointestinal: Positive for: Abdominal Pain (that worsens with urination). Negative for: Nausea, Vomiting, Diarrhea Genitourinary: Negative for: Dysuria, Hematuria Skin: Negative for: Rash Physical Exam - Physical Exam Appears: Well, Non-toxic, In Acute Distress ( in mild to moderate pain) Skin: Normal Color, Warm, Dry, No Rash Head: Normacephalic Eye(s): bilateral: Normal Inspection Oral Mucosa: Moist Neck: Supple Cardiovascular: Rhythm Regular (but tachycardic), No Murmur Respiratory: Normal Breath Sounds, No Rales, No Rhonchi, No Wheezing Gastrointestinal/Abdominal: Soft, Tenderness (diffuse TTP greatest at suprapubic and LLQ areas), No Guarding, No Rebound, Other (Obese abdomen, (-) McBurney's, (-) Boone's) Back: Normal Inspection, No CVA Tenderness Extremity: Bilateral: Atraumatic, Normal ROM Neurological/Psych: Oriented x3 ED Course And Treatment - Laboratory Results Result Diagrams: 04/14/18 07:04 04/14/18 07:04 ECG: Interpreted By Me, Viewed By Me (NSR 100 bpm, left axis deviation, no acute ST/RT wave changes) O2 Sat by Pulse Oximetry: 95 (room air) Pulse Ox Interpretation: Normal - CT Scan/US CT ABD/PELVIS Other Rad Studies (CT/US): Read By Radiologist, Radiology Report Reviewed CT/US Interpretation: Accession No. : [id number]. Patient Name / ID : YANELI BLACK / [id number]. Exam Date : 04/10/2018 13:31:13 ( Approved ). Study Comment : Sex / Age : M / 87Y. Creator : Juliann Sanchez. Dictator : Napoleon Hussein MD. Computer Analyst : Flotation Tank Operator : Napoleon Hussein MD. Approver2 : Report Date : 04/10/2018 13:48:13. My Comment : . Date of service: 04/10/2018. PROCEDURE: CT Abdomen and Pelvis with contrast. HISTORY : diffuse abdominal pain, h/o B cell leukemia. COMPARISON: None. TECHNIQUE: Contrast dose: 100 mL Visipaque 320. Radiation dose: Total exam DLP = 731.77 mGy-cm. This CT exam was performed using one or more of the following dose reduction techniques: Automated exposure control, adjustment of the mA and/ or kV according to patient size, and/or use of iterative reconstruction technique. FINDINGS: LOWER THORAX: Unremarkable. LIVER: Normal size, contour and attenuation. Few scattered very small nonspecific low-attenuation lesions, largest 12 mm in the right hepatic lobe posteriorly. No biliary ductal dilatation. Very mild nonspecific periportal edema. GALLBLADDER AND BILE DUCTS : Status post cholecystectomy. Dilated common bile duct up to 11 mm, likely related to prior cholecystectomy and age related ectasia. PANCREAS: Unremarkable. No gross lesion or ductal dilatation. SPLEEN: Minimal splenomegaly. The spleen measures 13.2 cm in greatest dimension. No mass. ADRENALS: Unremarkable. No mass. KIDNEYS AND URETERS: Bilateral renal cortical cysts. Right lower pole cortical cyst, 2.8 cm. Multiple left renal cortical cysts, largest upper pole, 5.7 cm. Please note that several of the left renal cortical cysts are slightly high in attenuation on these postcontrast images, up to 27 mm. Additional evaluation with renal ultrasound examination is advised on a nonemergent basis. No calculus. No hydronephrosis. VASCULATURE: Unremarkable. No aortic aneurysm. BOWEL: There is mural thickening of the sigmoid colon in association with sigmoid diverticulosis and perisigmoid edema/inflammatory change, consistent with acute diverticulitis. There is no colonic abscess identified. There is no free air identified. Followup after treatment with colonoscopy should be considered, to exclude sigmoid neoplasm. No bowel obstruction. No other abnormal bowel loops are identified. Please note that there is some oral contrast seen in the distal esophagus suggestive of gastroesophageal reflux. APPENDIX: Normal appendix. PERITONEUM: No ascites. No pneumoperitoneum. LYMPH NODES: There is retroperitoneal and pelvic lymphadenopathy with extensive mesenteric lymphadenopathy. Mesenteric nodes are seen enlarged up to 2.8 cm in short axis. There is extensive infiltration of the small bowel mesenteric in a circumscribed fashion, consistent with "Mesenteric panniculitis ". This is a nonspecific finding. This has known association with lymphoproliferative disorder, sclerosing cholangitis, gastric malignancy, and the other less common entities. . BLADDER: Poorly distended. Thickened bladder wall diffusely may be artifactual but consider cystitis. REPRODUCTIVE: Normal prostate. BONES: No acute fracture. OTHER FINDINGS: None. 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 See above associations, most notably lymphoproliferative disorder. Acute sigmoid diverticulitis. Followup to exclude sigmoid neoplasm. Bilateral renal cysts, some of which in the left kidney are of increased attenuation. Follow-up with nonemergent renal ultrasound is advised. Progress Note: Blood work, UA, CT scan abd/pelvis with PO /IV contrast ordered and reviewed. Patient given IV NS bolus, IV morphine. 2:53pm Patient discussed with Dr. Camarillo, agrees with admission for acute diverticulitis ( has admitted patient peviously). CT scan shows acute diveticulitis - IV Ciprofloxacin and IV Flagyl ordered. 2:58pm - Dr. Sheppard spoken with and aware of findings and admission. paged and notified of findings. - Physician Consult Information Time Consulting Physician Contacted: 14:53 Physician Contacted: Tamiko Camarillo Disposition Counseled Patient/Family Regarding: Studies Performed, Diagnosis - Disposition Disposition: HOSPITALIZED Disposition Time: 14:53 Condition: STABLE - POA Present On Arrival: None - Clinical Impression Clinical Impression: Acute diverticulitis, Chronic lymphocytic leukemia (CLL), B-cell - Scribe Statement The provider has reviewed the documentation as recorded by the Grant Andre Provider Attestation: All medical record entries made by the Grant were at my direction and personally dictated by me. I have reviewed the chart and agree that the record accurately reflects my personal performance of the history, physical exam, medical decision making, and the department course for this patient. I have also personally directed, reviewed, and agree with the discharge instructions and disposition. Decision To Admit - Pt Status Changed To: Hospital Disposition Of: Inpatient - Admit Certification Admit to Inpatient:: After my assessment, the patient will require hospitalization for at least two midnights. This is because of the severity of symptoms shown, intensity of services needed, and/or the medical risk in this patient being treated as an outpatient. - InPatient: Physician Admission Certification:: see notes - . Bed Request Type: Regular Admitting Physician: Tamiko Camarillo Patient Diagnosis: Acute diverticulitis, Chronic lymphocytic leukemia (CLL), B-cell
[2018-04-10 13:38] LABS: SQUAMOUS EPITHIAL < 1 /hpf (0-5); URINE BILIRUBIN NEGATIVE (NEGATIVE); URINE BLOOD NEGATIVE (NEGATIVE); URINE CLARITY Clear (Clear); URINE COLOR Straw (YELLOW); URINE GLUCOSE (UA) NORMAL (Normal); URINE LEUKOCYTE ESTERASE NEG Leu/uL (Negative); URINE PROTEIN NEGATIVE (NEGATIVE); URINE UROBILINOGEN NORMAL mg/dL (0.2-1.0)
--- NOTE | 2018-04-10 14:33 | CT ---
Date of service: 04/10/2018 PROCEDURE: CT Abdomen and Pelvis with contrast HISTORY: diffuse abdominal pain, h/o B cell leukemia COMPARISON: None. TECHNIQUE: Contrast dose: 100 mL Visipaque 320 Radiation dose: Total exam DLP = 731.77 mGy-cm. This CT exam was performed using one or more of the following dose reduction techniques: Automated exposure control, adjustment of the mA and/or kV according to patient size, and/or use of iterative reconstruction technique. FINDINGS: LOWER THORAX: Unremarkable. LIVER: Normal size, contour and attenuation. Few scattered very small nonspecific low-attenuation lesions, largest 12 mm in the right hepatic lobe posteriorly. No biliary ductal dilatation. Very mild nonspecific periportal edema. GALLBLADDER AND BILE DUCTS: Status post cholecystectomy. Dilated common bile duct up to 11 mm, likely related to prior cholecystectomy and age related ectasia. PANCREAS: Unremarkable. No gross lesion or ductal dilatation. SPLEEN: Minimal splenomegaly. The spleen measures 13.2 cm in greatest dimension. No mass. ADRENALS: Unremarkable. No mass. KIDNEYS AND URETERS: Bilateral renal cortical cysts. Right lower pole cortical cyst, 2.8 cm. Multiple left renal cortical cysts, largest upper pole, 5.7 cm. Please note that several of the left renal cortical cysts are slightly high in attenuation on these postcontrast images, up to 27 mm. Additional evaluation with renal ultrasound examination is advised on a nonemergent basis. No calculus. No hydronephrosis. VASCULATURE: Unremarkable. No aortic aneurysm. BOWEL: There is mural thickening of the sigmoid colon in association with sigmoid diverticulosis and perisigmoid edema/inflammatory change, consistent with acute diverticulitis. There is no colonic abscess identified. There is no free air identified. Followup after treatment with colonoscopy should be considered, to exclude sigmoid neoplasm. No bowel obstruction. No other abnormal bowel loops are identified. Please note that there is some oral contrast seen in the distal esophagus suggestive of gastroesophageal reflux. APPENDIX: Normal appendix. PERITONEUM: No ascites. No pneumoperitoneum. LYMPH NODES: There is retroperitoneal and pelvic lymphadenopathy with extensive mesenteric lymphadenopathy. Mesenteric nodes are seen enlarged up to 2.8 cm in short axis. There is extensive infiltration of the small bowel mesenteric in a circumscribed fashion, consistent with "Mesenteric panniculitis ". This is a nonspecific finding. This has known association with lymphoproliferative disorder, sclerosing cholangitis, gastric malignancy, and the other less common entities. . BLADDER: Poorly distended. Thickened bladder wall diffusely may be artifactual but consider cystitis. REPRODUCTIVE: Normal prostate BONES: No acute fracture. OTHER FINDINGS: None. 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 See above associations, most notably lymphoproliferative disorder. Acute sigmoid diverticulitis. Followup to exclude sigmoid neoplasm. Bilateral renal cysts, some of which in the left kidney are of increased attenuation. Follow-up with nonemergent renal ultrasound is advised.
[2018-04-10] MEDS ORDERED: Ciprofloxacin 400mg/200ml D5W 400 MG/200 ML BAG IV STA (14:48)
[2018-04-10] MEDS ORDERED: metroNIDAZOLE IV 500 mg/100 ml 500 MG/100 ML BAG IV STA (14:49)
[2018-04-10] MEDS ORDERED: Potassium Chloride 20 mEq ER Tab PO STA (14:56)
[2018-04-10] MEDS ORDERED: metroNIDAZOLE IV 500 mg/100 ml 500 MG/100 ML BAG ONE (15:11)
[2018-04-10] MEDS ORDERED: Ciprofloxacin 400mg/200ml D5W 400 MG/200 ML BAG IVPB ONE (15:11)
[2018-04-10] MEDS: Sodium Chloride 0.45% 1,000 ML IV SCH (18:22)
[2018-04-10] MEDS: metroNIDAZOLE IV 500 mg/100 ml 500 MG/100 ML BAG IVPB SCH (22:07)
[2018-04-11] MEDS: Ciprofloxacin 400mg/200ml D5W 400 MG/200 ML BAG IVPB SCH ×2 (03:21→15:18)
[2018-04-11] MEDS: metroNIDAZOLE IV 500 mg/100 ml 500 MG/100 ML BAG IVPB SCH ×3 (06:16→23:01)
[2018-04-11] MEDS: Sodium Chloride 0.45% 1,000 ML IV SCH ×2 (06:21→14:11)
--- NOTE | 2018-04-11 11:27 | CP.PCM.CON ---
History of Present Illness - History of Present Illness History of Present Illness: 87 yo H male admitted with three days of no stool and worsening LLQ abdominal pain. Denies fever, chills, N/V or rectal bleeding. CT Scan shows sigmoid diverticulitits with pedro luis-colonic inflammation but no abscess or perforation. Patient is under care of Onc for CLL getting CTX (unknown). No CP, SOB,fever or chills. No h/o colon polyps or cancer per daughter in room. Review of Systems - Cardiovascular Cardiovascular: absent: Chest Pain, Dyspnea - Respiratory Respiratory: absent: Cough, Wheezing - Gastrointestinal Gastrointestinal: As Per HPI - Genitourinary Genitourinary: absent: Hematuria, Pyuria Past Patient History - Tetanus Immunizations Tetanus Immunization: Unknown - Past Medical History & Family History Past Medical History?: Yes - Past Social History Smoking Status: Never Smoked Alcohol: None Drugs: Denies Home Situation {Lives}: With Family - CARDIAC Hx Hypercholesterolemia: Yes Hx Hypertension: Yes - PULMONARY Hx Respiratory Disorders: No - NEUROLOGICAL Hx Neurological Disorder: No - HEENT Hx HEENT Problems: Yes Hx Glaucoma: Yes - RENAL Hx Chronic Kidney Disease: No - ENDOCRINE/METABOLIC Hx Endocrine Disorders: No - HEMATOLOGICAL/ONCOLOGICAL Hx Blood Disorders: Yes Hx Cancer: Yes (leukemia) Hx Chemotherapy: Yes (1 week ago) Hx Cirrhosis: No Hx Hepatitis A: No Hx Hepatitis B: No Hx Hepatitis C: No Hx Human Immunodeficiency Virus (HIV): No - INTEGUMENTARY Hx Dermatological Problems: No - MUSCULOSKELETAL/RHEUMATOLOGICAL Hx Musculoskeletal Disorders: No Hx Falls: No - GASTROINTESTINAL Hx Gastrointestinal Disorders: No Hx Bowel Surgery: No Hx Clostridium Difficile: No Hx Colitis: No Hx Colostomy: No Hx Constipation: Yes Hx Crohn's Disease: No Hx Diarrhea: No Hx Diverticulitis: No Hx Esophageal Varices: No Hx Fatty Liver Disease: No Hx Gall Bladder Disease: Yes (Had cholecystectomy) Hx Gastritis: No Hx Gastroesophageal Reflux: No Hx Hemorrhoids: No Hx Ileostomy: No Hx Irritable Bowel: No Hx Liver Failure: No Hx Nausea: No Hx Pancreatitis: No HX Swallowing Problems: No Hx Ulcer: No Hx Vomiting: No - GENITOURINARY/GYNECOLOGICAL Hx Genitourinary Disorders: No - PSYCHIATRIC Hx Substance Use: No - SURGICAL HISTORY Hx Cholecystectomy: Yes - ANESTHESIA Hx Anesthesia: Yes Hx Anesthesia Reactions: No Hx Malignant Hyperthermia: No Meds Allergies/Adverse Reactions: Allergies Allergy/AdvReac Type Severity Reaction Status Date / Time No Known Allergies Allergy Verified 01/26/18 16:30 - Medications Medications: Current Medications Heparin Sodium (Porcine) (Heparin) 5,000 units SC Q8 [facility] Last Admin: 04/11/18 06:19 Dose: 5,000 units Hydralazine HCl (Apresoline) 100 mg PO BID [facility] Last Admin: 04/11/18 09:46 Dose: 100 mg Sodium Chloride (Sodium Chloride 0.45%) 1,000 mls @ 100 mls/hr IV .Q10H [facility] Last Admin: 04/11/18 06:21 Dose: 100 mls/hr Ciprofloxacin (Cipro 400mg/200ml Dsw) 400 mg in 200 mls @ 133 mls/hr IVPB Q12H [facility] PRN Reason: Protocol Last Admin: 04/11/18 03:21 Dose: 133 mls/hr Metronidazole (Flagyl) 500 mg in 100 mls @ 100 mls/hr IVPB Q8H [facility] PRN Reason: Protocol Last Admin: 04/11/18 06:16 Dose: 100 mls/hr Morphine Sulfate (Morphine) 2 mg IVP Q6 PRN PRN Reason: Pain, moderate (4-7) Last Admin: 04/11/18 03:41 Dose: 2 mg Pantoprazole Sodium (Protonix Inj) 40 mg IVP Q12H [facility] Last Admin: 04/11/18 06:21 Dose: 40 mg Tramadol HCl (Ultram) 50 mg PO Q12 PRN PRN Reason: pain Last Admin: 04/10/18 22:12 Dose: 50 mg Physical Exam - Constitutional Additional comments: Patient in moderate abdominal pain lying in bed - Head Exam Head Exam: ATRAUMATIC, NORMOCEPHALIC - Eye Exam Eye Exam: EOMI, PERRL - Respiratory Exam Respiratory Exam: NORMAL BREATHING PATTERN - Cardiovascular Exam Cardiovascular Exam: REGULAR RHYTHM - GI/Abdominal Exam GI & Abdominal Exam: Distended, Guarding, Normal Bowel Sounds, Soft, Tenderness. absent: Mass, Rebound Additional comments: Has diffuse lower abdominal/LLQ guarding and tenderness. Moderately distended. No rebound or masses. - Rectal Exam Rectal Exam: NORMAL INSPECTION - Extremities Exam Extremities exam: Positive for: normal inspection. Negative for: pedal edema - Neurological Exam Neurological exam: Normal Gait, Oriented x3 - Psychiatric Exam Psychiatric exam: Normal Affect, Normal Mood - Skin Skin Exam: Dry, Warm Results - Vital Signs Recent Vital Signs: Last Vital Signs Temp 98.4 F 04/11/18 08:49 Pulse 88 04/11/18 08:49 Resp 20 04/11/18 08:49 BP 169/92 H 04/11/18 08:49 Pulse Ox 97 04/11/18 08:49 - Labs Result Diagrams: 04/10/18 12:15 04/10/18 12:15 Labs: Laboratory Results - last 24 hr 04/10/18 04/10/18 04/10/18 12:15 12:15 13:26 WBC 7.1 D RBC 4.37 L Hgb 12.2 D Hct 36.4 MCV 83.2 D MCH 28.0 MCHC 33.6 RDW 14.7 H Plt Count 161 MPV 9.1 Neut % (Auto) 64.6 Lymph % (Auto) 27.5 [place] % (Auto) 6.6 Eos % (Auto) 0.6 Baso % (Auto) 0.7 Neut # (Auto) 4.6 Lymph # (Auto) 2.0 [place] # (Auto) 0.5 Eos # (Auto) 0.0 Baso # (Auto) 0.0 Sodium 141 Potassium 3.3 L Chloride 105 Carbon Dioxide 25 Anion Gap 14 BUN 10 Creatinine 0.8 Est GFR ( Amer) > 60 Est GFR (Non-Af Amer) > 60 Random Glucose 140 H Calcium 9.1 Total Bilirubin 0.4 AST 18 ALT 28 Alkaline Phosphatase 146 H Total Protein 6.6 Albumin 3.9 Globulin 2.7 Albumin/Globulin Ratio 1.4 Lipase 59 Urine Color Straw Urine Clarity Clear Urine pH 6.0 Ur Specific [place] 1.005 Urine Protein Negative Urine Glucose (UA) Normal Urine Ketones Negative Urine Blood Negative Urine Nitrate Negative Urine Bilirubin Negative Urine Urobilinogen Normal Ur Leukocyte Esterase Neg Urine WBC (Auto) < 1 Ur Squamous Epith Cells < 1 Assessment & Plan (1) Diverticulitis of colon Assessment and Plan: Patient with acute sigmoid diverticulitis likely related to immunosuppressive therapy for his CLL. Agree with IV antibiotic for 3-5 days until pain free. IV fluids NPO until pain has resolved Colonoscopy in 2-3 months after inflammation has resolved with Dr Fernandez/Evangelista. Status: Acute (2) LLQ abdominal pain Assessment and Plan: as above Status: Acute (3) Constipation Assessment and Plan: as above Status: Acute (4) CLL (chronic lymphocytic leukemia) Assessment and Plan: as per Oncology/hematology evaluation pending. Status: Chronic
--- NOTE | 2018-04-11 12:57 | CP.PCM.HP ---
History of Present Illness - History of Present Illness History of Present Illness: Chief complaint: Abdominal pain for 3 days duration. HPI: 87-year-old male with history of hypertension, recently diagnosed with his CLL, lymphadenopathy status post chemotherapy 3 months ago, complicated with the neutropenia at the time. Patient slowly improved at that time. He came to the emergency room today with the symptoms of acute abdominal pain, diffuse lower abdominal pain especially in the lower quadrant, and associate with the nausea for 3 days duration. When he is also urinating he has a severe pain involving the lower abdominal area. He did have some nausea, but no vomiting noted. He did not have any bowel movements, no diarrhea noted. He denies any fever chills. Patient did not have any symptoms in the past like this. Past medical history significant for hypertension, CLL, neutropenia and also significant abdominal lymphadenopathy. Allergies: No known drug allergy Personal history non-smoker nonalcoholic Surgical history none Family history noncontributory Review of system: Complaining of some headache, also complaining of some nausea, abdominal pain, left lower quadrant pain noted, did not have any bowel movements. No fever noted, chills negative Poor intake noted But appetite is good On examination: Vital signs noted. Mild tachycardia noted, low-grade fever noted. Blood pressure slightly elevated Chest bilateral good air entry Regular heart sounds Abdominal tenderness in the left lower quadrant noted. Edema negative Labs reviewed WBC 7.1 Hemoglobin 12.2 Platelet 161 Chemistry nonspecific, potassium 3.3 Assessment and recommendation: CAT scan of the abdomen and pelvis showing evidence of extensive nonspecific mesenteric panniculitis with the mesentery, retroperitoneal, and pelvic lymphadenopathy. Lymphoproliferative disorder, Acute sigmoid diverticulitis Renal cyst Assessment and recommendation: 86-year-old male with a history of CLL, hypertension with the neutropenia and abdominal lymphadenopathy Now admitted with acute possible sigmoid diverticulitis. Currently we will start the patient on Cipro, Flagyl. IV fluid. Gastrointestinal evaluation. Surgical, infectious disease evaluation may be needed. DVT GI prophylaxis. We will continue the current treatment. Will follow the Present on Admission - Present on Admission Any Indicators Present on Admission: No History of DVT/PE: No History of Uncontrolled Diabetes: No Urinary Catheter: No Decubitus Ulcer Present: No Past Patient History - Tetanus Immunizations Tetanus Immunization: Unknown - Past Medical History & Family History Past Medical History?: Yes - Past Social History Smoking Status: Never Smoked Alcohol: None Drugs: Denies Home Situation {Lives}: With Family - CARDIAC Hx Hypercholesterolemia: Yes Hx Hypertension: Yes - PULMONARY Hx Respiratory Disorders: No - NEUROLOGICAL Hx Neurological Disorder: No - HEENT Hx HEENT Problems: Yes Hx Glaucoma: Yes - RENAL Hx Chronic Kidney Disease: No - ENDOCRINE/METABOLIC Hx Endocrine Disorders: No - HEMATOLOGICAL/ONCOLOGICAL Hx Blood Disorders: Yes Hx Cancer: Yes (leukemia) Hx Chemotherapy: Yes (1 week ago) Hx Cirrhosis: No Hx Hepatitis A: No Hx Hepatitis B: No Hx Hepatitis C: No Hx Human Immunodeficiency Virus (HIV): No - INTEGUMENTARY Hx Dermatological Problems: No - MUSCULOSKELETAL/RHEUMATOLOGICAL Hx Musculoskeletal Disorders: No Hx Falls: No - GASTROINTESTINAL Hx Gastrointestinal Disorders: No Hx Bowel Surgery: No Hx Clostridium Difficile: No Hx Colitis: No Hx Colostomy: No Hx Constipation: Yes Hx Crohn's Disease: No Hx Diarrhea: No Hx Diverticulitis: No Hx Esophageal Varices: No Hx Fatty Liver Disease: No Hx Gall Bladder Disease: Yes (Had cholecystectomy) Hx Gastritis: No Hx Gastroesophageal Reflux: No Hx Hemorrhoids: No Hx Ileostomy: No Hx Irritable Bowel: No Hx Liver Failure: No Hx Nausea: No Hx Pancreatitis: No HX Swallowing Problems: No Hx Ulcer: No Hx Vomiting: No - GENITOURINARY/GYNECOLOGICAL Hx Genitourinary Disorders: No - PSYCHIATRIC Hx Substance Use: No - SURGICAL HISTORY Hx Cholecystectomy: Yes - ANESTHESIA Hx Anesthesia: Yes Hx Anesthesia Reactions: No Hx Malignant Hyperthermia: No Meds Allergies/Adverse Reactions: Allergies Allergy/AdvReac Type Severity Reaction Status Date / Time No Known Allergies Allergy Verified 01/26/18 16:30 Results - Vital Signs Recent Vital Signs: Last Vital Signs Temp 98.4 F 04/11/18 08:49 Pulse 88 04/11/18 08:49 Resp 20 04/11/18 08:49 BP 169/92 H 04/11/18 08:49 Pulse Ox 97 04/11/18 08:49 - Labs Result Diagrams: 04/10/18 12:15 04/10/18 12:15 Labs: Laboratory Results - last 24 hr 04/10/18 13:26 Urine Color Straw Urine Clarity Clear Urine pH 6.0 Ur Specific [place] 1.005 Urine Protein Negative Urine Glucose (UA) Normal Urine Ketones Negative Urine Blood Negative Urine Nitrate Negative Urine Bilirubin Negative Urine Urobilinogen Normal Ur Leukocyte Esterase Neg Urine WBC (Auto) < 1 Ur Squamous Epith Cells < 1
--- NOTE | 2018-04-11 13:00 | CP.PCM.PN ---
Subjective - Date & Time of Evaluation Date of Evaluation: 04/11/18 Time of Evaluation: 12:58 - Subjective Subjective: Today patient is having more worsening pain in the abdomen, and some also distention of the abdomen noted. He did not have a bowel movements yet. He has no nausea or vomiting. He is feeling hungry at this time. Temperature 98.4 pulse 88 Blood pressure 169/72 respirations 20 saturation 97 in room air Chest good air entry Abdomen soft but tenderness in the left lower quadrant severely noted, and also mid lower abdomen and right lower quadrant. Tympanic in abdomen noted Current labs currently pending. Repeat CT scan of the abdomen which was done as a started to rule out any perforation pending results. Assessment and recommendation: 86-year-old male with a history of hypertension, CLL admitted with intestinal, sigmoid diverticulitis. Patient received treatment for CLL immunotherapy, chemotherapy. Also he had an episode of thrombocytopenia. In the setting patient at high risk for sepsis and the severe complications. Awaiting for CT report. We will get a surgical opinion. Also infectious disease opinion for antibiotic coverage. Oncology follow-up and will follow the patient Objective - Vital Signs/Intake and Output Vital Signs (last 24 hours): Temp Pulse Resp BP Pulse Ox 98.4 F 88 20 169/92 H 97 04/11/18 08:49 04/11/18 08:49 04/11/18 08:49 04/11/18 08:49 04/11/18 08:49 Intake and Output: 04/11/18 04/11/18 06:59 18:59 Intake Total 1260 Balance 1260 - Medications Medications: Current Medications Heparin Sodium (Porcine) (Heparin) 5,000 units SC Q8 [facility] Last Admin: 04/11/18 06:19 Dose: 5,000 units Hydralazine HCl (Apresoline) 100 mg PO BID [facility] Last Admin: 04/11/18 09:46 Dose: 100 mg Sodium Chloride (Sodium Chloride 0.45%) 1,000 mls @ 100 mls/hr IV .Q10H [facility] Last Admin: 04/11/18 06:21 Dose: 100 mls/hr Ciprofloxacin (Cipro 400mg/200ml Dsw) 400 mg in 200 mls @ 133 mls/hr IVPB Q12H [facility] PRN Reason: Protocol Last Admin: 04/11/18 03:21 Dose: 133 mls/hr Metronidazole (Flagyl) 500 mg in 100 mls @ 100 mls/hr IVPB Q8H [facility] PRN Reason: Protocol Last Admin: 04/11/18 06:16 Dose: 100 mls/hr Morphine Sulfate (Morphine) 2 mg IVP Q6 PRN PRN Reason: Pain, moderate (4-7) Last Admin: 04/11/18 03:41 Dose: 2 mg Pantoprazole Sodium (Protonix Inj) 40 mg IVP Q12H [facility] Last Admin: 04/11/18 06:21 Dose: 40 mg Tramadol HCl (Ultram) 50 mg PO Q12 PRN PRN Reason: pain Last Admin: 04/10/18 22:12 Dose: 50 mg - Labs Labs: 04/10/18 12:15 04/10/18 12:15
[2018-04-11 13:18] LABS: BASO # 0.1 K/uL (0.0-0.2); BASO % 0.9 % (0.0-2.0); EOS % 0.8 % (0.0-4.0); HEMOGLOBIN 11.9 g/dL (12.0-18.0); LYMPH # 1.7 K/uL (1.0-4.3); LYMPH % 27.7 % (20.0-40.0); MEAN CELL VOLUME 82.7 fL (80.0-94.0); MEAN CORPUSCULAR HEMOGLOBIN 27.9 pg (27.0-31.0); MEAN CORPUSCULAR HGB CONC 33.7 g/dL (33.0-37.0); MEAN PLATELET VOLUME 9.5 fL (7.2-11.7); MONO # 0.4 K/uL (0.0-0.8); MONO % 6.2 % (0.0-10.0); NEUT % 64.4 % (50.0-75.0); NRBC % 0.1 % (0.0-2.0); RBC 4.27 Mil/uL (4.40-5.90); RED CELL DISTRIBUTION WIDTH 14.5 % (11.5-14.5); WHITE BLOOD COUNT 6.2 K/uL (4.8-10.8)
[2018-04-11 13:38] LABS: ALB/GLOB RATIO 1.4 (1.0-2.1); ALBUMIN 3.8 g/dL (3.5-5.0); ALT/SGPT 30 U/L (21-72); AST/SGOT 23 U/L (17-59); BLOOD UREA NITROGEN 8 mg/dL (9-20); CALCIUM 9.2 mg/dl (8.6-10.4); GFR AFRICAN-AMERICAN > 60; GFR NON-AFRICAN AMERICAN > 60
--- NOTE | 2018-04-11 15:03 | CT ---
Date of service: 04/11/2018 PROCEDURE: CT Abdomen and Pelvis without intravenous contrast HISTORY: perforation COMPARISON: None. TECHNIQUE: Helical CT of the abdomen and pelvis was performed without oral or intravenous contrast as per referring physician request. Contrast dose: None Radiation dose: Total exam DLP = 609.83 mGy-cm. This CT exam was performed using one or more of the following dose reduction techniques: Automated exposure control, adjustment of the mA and/or kV according to patient size, and/or use of iterative reconstruction technique. FINDINGS: LOWER THORAX: Cardiomegaly coronary artery at arthrosclerosis is reiterated. Trace bibasilar linear atelectasis or fibrosis identified once again. Trace right pleural effusion evident. Small hiatal hernia reiterated. LIVER: A lucency in the right lobe liver is again identified posterior to the mid right portal vein branch with the previously demonstrated tiny lucency at the left lobe again evident as well. GALLBLADDER AND BILE DUCTS: Prior cholecystectomy reiterated. PANCREAS: Unremarkable. No gross lesion or ductal dilatation. SPLEEN: Borderline splenomegaly reiterated to 13.3 cm. ADRENALS: Unremarkable. No mass. KIDNEYS AND URETERS: No interval obstructive uropathy bilaterally though multiple left renal cysts are reiterated. Calcifications related to a midpole pole left renal cyst is better defined currently than the prior study as the current exam is without IV contrast. Hyperdense cysts otherwise again evident at the left kidney for which follow-up renal ultrasound is recommended. VASCULATURE: Unremarkable. No aortic aneurysm. BOWEL: Stomach and bowel appear grossly stable as imaged including sigmoid diverticulosis pattern. . APPENDIX: Unremarkable. Normal appendix. PERITONEUM: Unremarkable. No free fluid. No free air. LYMPH NODES: Marked retroperitoneal, mesenteric and pelvic lymphadenopathy is reiterated without significant change. Mesenteric pattern again reflects mesenteric panniculitis potentially from lymphoproliferative disorder, sclerosing cholangitis, gastric malignancy and others. Further clinical correlation is recommended. BLADDER: No interval change. REPRODUCTIVE: Unremarkable. BONES: No acute fracture. OTHER FINDINGS: None. IMPRESSION: No obvious pattern of hollow viscus perforation in the abdomen or pelvis. No abscess. No signal change in sigmoid diverticulitis pattern. No obvious pattern of local abscess or perforation. Continued therapy is advised followed by selective lower endoscopy. Pathological lymphadenopathy in the abdomen primarily at the Mesentery and retroperitoneum as discussed above. Please see discussion above. No interval change. Other lesser findings as discussed above.
[2018-04-11] MEDS ORDERED: Lactated Ringer's 1,000 ML IV SCH (15:15)
--- NOTE | 2018-04-11 17:16 | CP.PCM.CON ---
History of Present Illness - History of Present Illness History of Present Illness: General Surgery consult note: Dr. Proctor 87M with PMH of HTN, CLL reported to [facility] ED with complaints of abdominal pain. Patient reports pain began three days ago. States pain is localized to left lower quadrant and suprapubic region. Patient reports constipation for the past three days. However, admits to passing flatus. Reports chills. Denies headaches/dizziness, nausea/vomiting, dysuria. PSH: cholecystectomy PMH: as stated above Allergies: NKDA Review of Systems - Review of Systems Review of Systems: 12 pt ROS unremarkable, except as stated in HPI Past Patient History - Tetanus Immunizations Tetanus Immunization: Unknown - Past Medical History & Family History Past Medical History?: Yes - Past Social History Smoking Status: Never Smoked Alcohol: None Drugs: Denies Home Situation {Lives}: With Family - CARDIAC Hx Hypercholesterolemia: Yes Hx Hypertension: Yes - PULMONARY Hx Respiratory Disorders: No - NEUROLOGICAL Hx Neurological Disorder: No - HEENT Hx HEENT Problems: Yes Hx Glaucoma: Yes - RENAL Hx Chronic Kidney Disease: No - ENDOCRINE/METABOLIC Hx Endocrine Disorders: No - HEMATOLOGICAL/ONCOLOGICAL Hx Blood Disorders: Yes Hx Cancer: Yes (leukemia) Hx Chemotherapy: Yes (1 week ago) Hx Cirrhosis: No Hx Hepatitis A: No Hx Hepatitis B: No Hx Hepatitis C: No Hx Human Immunodeficiency Virus (HIV): No - INTEGUMENTARY Hx Dermatological Problems: No - MUSCULOSKELETAL/RHEUMATOLOGICAL Hx Musculoskeletal Disorders: No Hx Falls: No - GASTROINTESTINAL Hx Gastrointestinal Disorders: No Hx Bowel Surgery: No Hx Clostridium Difficile: No Hx Colitis: No Hx Colostomy: No Hx Constipation: Yes Hx Crohn's Disease: No Hx Diarrhea: No Hx Diverticulitis: No Hx Esophageal Varices: No Hx Fatty Liver Disease: No Hx Gall Bladder Disease: Yes (Had cholecystectomy) Hx Gastritis: No Hx Gastroesophageal Reflux: No Hx Hemorrhoids: No Hx Ileostomy: No Hx Irritable Bowel: No Hx Liver Failure: No Hx Nausea: No Hx Pancreatitis: No HX Swallowing Problems: No Hx Ulcer: No Hx Vomiting: No - GENITOURINARY/GYNECOLOGICAL Hx Genitourinary Disorders: No - PSYCHIATRIC Hx Substance Use: No - SURGICAL HISTORY Hx Cholecystectomy: Yes - ANESTHESIA Hx Anesthesia: Yes Hx Anesthesia Reactions: No Hx Malignant Hyperthermia: No Meds Allergies/Adverse Reactions: Allergies Allergy/AdvReac Type Severity Reaction Status Date / Time No Known Allergies Allergy Verified 01/26/18 16:30 - Medications Medications: Current Medications Heparin Sodium (Porcine) (Heparin) 5,000 units SC Q8 [facility] Last Admin: 04/11/18 14:08 Dose: 5,000 units Hydralazine HCl (Apresoline) 100 mg PO BID [facility] Last Admin: 04/11/18 09:46 Dose: 100 mg Ciprofloxacin (Cipro 400mg/200ml Dsw) 400 mg in 200 mls @ 133 mls/hr IVPB Q12H [facility] PRN Reason: Protocol Last Admin: 04/11/18 15:18 Dose: 133 mls/hr Metronidazole (Flagyl) 500 mg in 100 mls @ 100 mls/hr IVPB Q8H [facility] PRN Reason: Protocol Last Admin: 04/11/18 14:08 Dose: 100 mls/hr Lactated Ringer's (Lactated Ringer's) 1,000 mls @ 100 mls/hr IV .Q10H [facility] Last Admin: 04/11/18 15:17 Dose: 100 mls/hr Morphine Sulfate (Morphine) 2 mg IVP Q3 [facility] Last Admin: 04/11/18 15:26 Dose: 2 mg Pantoprazole Sodium (Protonix Inj) 40 mg IVP Q12H [facility] Last Admin: 04/11/18 06:21 Dose: 40 mg Tramadol HCl (Ultram) 50 mg PO Q12 PRN PRN Reason: pain Last Admin: 04/10/18 22:12 Dose: 50 mg Physical Exam - Constitutional Appears: Non-toxic, No Acute Distress - Head Exam Head Exam: NORMOCEPHALIC - Eye Exam Eye Exam: Normal appearance - ENT Exam ENT Exam: Mucous Membranes Moist - Respiratory Exam Respiratory Exam: NORMAL BREATHING PATTERN - Cardiovascular Exam Cardiovascular Exam: +S1, +S2 - GI/Abdominal Exam GI & Abdominal Exam: Guarding, Soft, Tenderness. absent: Distended, Rebound, Rigid Additional comments: localized guarding along left lower quadrant non peritoneal - Neurological Exam Neurological exam: Alert, Oriented x3 - Psychiatric Exam Psychiatric exam: Normal Mood - Skin Skin Exam: Dry, Intact, Warm Results - Vital Signs Recent Vital Signs: Last Vital Signs Temp 98.9 F 04/11/18 15:36 Pulse 94 H 04/11/18 15:36 Resp 20 04/11/18 15:36 BP 175/95 H 04/11/18 15:36 Pulse Ox 94 L 04/11/18 15:36 - Labs Result Diagrams: 04/11/18 13:06 04/11/18 13:06 Labs: Laboratory Results - last 24 hr 04/11/18 04/11/18 13:06 13:06 WBC 6.2 RBC 4.27 L Hgb 11.9 L Hct 35.4 MCV 82.7 MCH 27.9 MCHC 33.7 RDW 14.5 Plt Count 154 MPV 9.5 Neut % (Auto) 64.4 Lymph % (Auto) 27.7 [place] % (Auto) 6.2 Eos % (Auto) 0.8 Baso % (Auto) 0.9 Neut # (Auto) 4.0 Lymph # (Auto) 1.7 [place] # (Auto) 0.4 Eos # (Auto) 0.0 Baso # (Auto) 0.1 Sodium 139 Potassium 3.7 Chloride 103 Carbon Dioxide 25 Anion Gap 15 BUN 8 L Creatinine 0.8 Est GFR ( Amer) > 60 Est GFR (Non-Af Amer) > 60 Random Glucose 97 Calcium 9.2 Magnesium 1.7 Total Bilirubin 0.6 AST 23 ALT 30 Alkaline Phosphatase 164 H Total Protein 6.5 Albumin 3.8 Globulin 2.7 Albumin/Globulin Ratio 1.4 - Imaging and Cardiology CT scan - abdomen Status: Image reviewed by me, Report reviewed by me Assessment & Plan - Assessment and Plan (Free Text) Assessment: 87M with acute sigmoid diverticulitis, no perforation/abscess formation noted Plan: No acute surgical intervention at this present time Conservative management NPO IVF ABx Analgesic prn Anti-pyretic prn DVT PPx Medical management as per primary team Will follow D/w Dr. Esthela Blank PGY3
[2018-04-11] MEDS: Lactated Ringer's 1,000 ML IV SCH (23:06)
[2018-04-12] MEDS: Ciprofloxacin 400mg/200ml D5W 400 MG/200 ML BAG IVPB SCH ×2 (02:52→14:57)
[2018-04-12] MEDS: metroNIDAZOLE IV 500 mg/100 ml 500 MG/100 ML BAG IVPB SCH ×3 (06:12→22:09)
--- NOTE | 2018-04-12 08:01 | CP.PCM.PN ---
Subjective - Date & Time of Evaluation Date of Evaluation: 04/12/18 Time of Evaluation: 07:56 - Subjective Subjective: General Surgery Progress Note for Dr. Proctor 87M seen and evaluated at bedside this morning. Pt states pain has improved. No acute events overnight. Denies f/c, n/v/d, SOB, CP, or urinary symptoms. Objective - Vital Signs/Intake and Output Vital Signs (last 24 hours): Temp Pulse Resp BP Pulse Ox 98.4 F 85 20 159/86 H 98 04/12/18 01:00 04/12/18 01:00 04/12/18 01:00 04/12/18 01:00 04/12/18 01:00 Intake and Output: 04/12/18 04/12/18 06:59 18:59 Intake Total 800 Balance 800 - Medications Medications: Current Medications Heparin Sodium (Porcine) (Heparin) 5,000 units SC Q8 [facility] Last Admin: 04/12/18 05:50 Dose: 5,000 units Hydralazine HCl (Apresoline) 50 mg PO QID [facility] Ciprofloxacin (Cipro 400mg/200ml Dsw) 400 mg in 200 mls @ 133 mls/hr IVPB Q12H [facility] PRN Reason: Protocol Last Admin: 04/12/18 02:52 Dose: 133 mls/hr Metronidazole (Flagyl) 500 mg in 100 mls @ 100 mls/hr IVPB Q8H [facility] PRN Reason: Protocol Last Admin: 04/12/18 06:12 Dose: 100 mls/hr Lactated Ringer's (Lactated Ringer's) 1,000 mls @ 50 mls/hr IV .Q20H [facility] Last Admin: 04/11/18 23:06 Dose: 50 mls/hr Metoprolol Tartrate (Lopressor) 50 mg PO BID [facility] Morphine Sulfate (Morphine) 2 mg IVP Q3 [facility] Last Admin: 04/12/18 07:22 Dose: Not Given Pantoprazole Sodium (Protonix Inj) 40 mg IVP DAILY [facility] Tramadol HCl (Ultram) 50 mg PO Q12 PRN PRN Reason: pain Last Admin: 04/10/18 22:12 Dose: 50 mg - Labs Labs: 04/11/18 13:06 04/11/18 13:06 - Constitutional Appears: Well, Non-toxic, No Acute Distress - Head Exam Head Exam: ATRAUMATIC, NORMAL INSPECTION, NORMOCEPHALIC - Eye Exam Eye Exam: EOMI, Normal appearance - Respiratory Exam Respiratory Exam: Clear to Ausculation Bilateral, NORMAL BREATHING PATTERN - Cardiovascular Exam Cardiovascular Exam: REGULAR RHYTHM, +S1, +S2. absent: Murmur - GI/Abdominal Exam GI & Abdominal Exam: Guarding, Soft, Tenderness, Normal Bowel Sounds. absent: Distended, Firm, Rigid, Rebound - Rectal Exam Rectal Exam: Deferred - Neurological Exam Neurological Exam: Alert, Awake, Oriented x3 - Psychiatric Exam Psychiatric exam: Normal Affect, Normal Mood - Skin Skin Exam: Dry, Intact, Normal Color, Warm Assessment and Plan - Assessment and Plan (Free Text) Assessment: 87M w/ colonic diverticulitis Plan: No acute surgical intervention at this time Conservative management NPO until symptoms improve IVF ABx per ID Analgesic prn Anti-pyretic prn DVT PPx Medical management as per primary team further recs per Dr. Esthela Coleman PGY1
--- NOTE | 2018-04-12 12:34 | CT ---
Date of service: 04/11/2018 PROCEDURE: CT HEAD WITHOUT CONTRAST. HISTORY: confusion/headache COMPARISON: None available. TECHNIQUE: Axial computed tomography images were obtained through the head/brain without intravenous contrast. Radiation dose: Total exam DLP = 972.08 mGy-cm. This CT exam was performed using one or more of the following dose reduction techniques: Automated exposure control, adjustment of the mA and/or kV according to patient size, and/or use of iterative reconstruction technique. FINDINGS: HEMORRHAGE: No intracranial hemorrhage. BRAIN: Good corticomedullary differentiation is seen. Proportional but limited, diffuse expansion of the ventriculosulcal and cisternal spaces is appreciated with minimal white matter lucency compatible with diffuse cerebral atrophy and chronic microangiopathy. No suspicious extra-axial fluid collection is identified and the midline brain anatomy appears grossly nonfocal as imaged. There is no mass effect throughout.No atrophy or chronic microvascular ischemic changes. VENTRICLES: Unremarkable. No hydrocephalus. CALVARIUM: Unremarkable. PARANASAL SINUSES: Unremarkable as visualized. No significant inflammatory changes. MASTOID AIR CELLS: Unremarkable as visualized. No inflammatory changes. OTHER FINDINGS: Postoperative harbor right globe. IMPRESSION: No definite acute intracranial findings. Minimal age related neuro degenerative changes are identified less than expected for age. Concordant preliminary report from [facility], 04/11/2018.
--- NOTE | 2018-04-12 12:35 | CP.PCM.PN ---
Subjective - Date & Time of Evaluation Date of Evaluation: 04/12/18 Time of Evaluation: 12:32 - Subjective Subjective: COVERING DR SOUZA/THERON Patient with clear liquid tray though NPO was advised by GI and Surgical services Reports still severe lower and LLQ abdominal pain. No stool Objective - Vital Signs/Intake and Output Vital Signs (last 24 hours): Temp Pulse Resp BP Pulse Ox 98.4 F 81 20 140/70 98 04/12/18 08:17 04/12/18 08:17 04/12/18 08:17 04/12/18 10:01 04/12/18 08:17 Intake and Output: 04/12/18 04/12/18 06:59 18:59 Intake Total 800 Balance 800 - Medications Medications: Current Medications Heparin Sodium (Porcine) (Heparin) 5,000 units SC Q8 [facility] Last Admin: 04/12/18 05:50 Dose: 5,000 units Hydralazine HCl (Apresoline) 50 mg PO QID [facility] Last Admin: 04/12/18 10:02 Dose: 50 mg Ciprofloxacin (Cipro 400mg/200ml Dsw) 400 mg in 200 mls @ 133 mls/hr IVPB Q12H [facility] PRN Reason: Protocol Last Admin: 04/12/18 02:52 Dose: 133 mls/hr Metronidazole (Flagyl) 500 mg in 100 mls @ 100 mls/hr IVPB Q8H [facility] PRN Reason: Protocol Last Admin: 04/12/18 06:12 Dose: 100 mls/hr Lactated Ringer's (Lactated Ringer's) 1,000 mls @ 50 mls/hr IV .Q20H [facility] Last Admin: 04/11/18 23:06 Dose: 50 mls/hr Ketorolac Tromethamine (Toradol) 15 mg IVP Q6 PRN PRN Reason: Pain, moderate (4-7) Metoprolol Tartrate (Lopressor) 50 mg PO BID [facility] Pantoprazole Sodium (Protonix Inj) 40 mg IVP DAILY [facility] Last Admin: 04/12/18 10:02 Dose: 40 mg Tramadol HCl (Ultram) 50 mg PO Q12 PRN PRN Reason: pain Last Admin: 04/10/18 22:12 Dose: 50 mg - Labs Labs: 04/11/18 13:06 07/21/18 13:06 - Constitutional Appears: No Acute Distress - Head Exam Head Exam: ATRAUMATIC, NORMOCEPHALIC - Eye Exam Eye Exam: EOMI, PERRL - Respiratory Exam Respiratory Exam: NORMAL BREATHING PATTERN - Cardiovascular Exam Cardiovascular Exam: REGULAR RHYTHM - GI/Abdominal Exam GI & Abdominal Exam: Distended, Guarding, Soft, Tenderness, Hypoactive Bowel Sounds. absent: Mass, Rebound - Extremities Exam Extremities Exam: Normal Inspection Assessment and Plan (1) Diverticulitis of colon Assessment & Plan: Now made NPO until symptoms improve. I don't appreciate ANY improvement in exam compared to yesterday. Continue IV antibiotics and IVF Surgical follow up Status: Acute (2) LLQ abdominal pain Assessment & Plan: as above Status: Acute (3) Constipation Status: Acute (4) CLL (chronic lymphocytic leukemia) Status: Chronic
[2018-04-12] MEDS: Lactated Ringer's 1,000 ML IV SCH (13:40)
--- NOTE | 2018-04-12 16:16 | CP.PCM.CON ---
History of Present Illness - History of Present Illness History of Present Illness: 87M with PMH of HTN, CLL reported to [facility] ED with complaints of abdominal pain. Patient reports pain began three days ago. States pain is localized to left lower quadrant and suprapubic region. Patient reports constipation for the past three days. However, admits to passing flatus. Reports chills. Denies headaches/dizziness, nausea/vomiting, dysuria. rx in progress for diverticulitis ID consult requested for this PSH: cholecystectomy PMH: as stated above Allergies: NKDA Review of Systems - Review of Systems All systems: reviewed and no additional remarkable complaints except - Constitutional Constitutional: As Per HPI - EENT Eyes: absent: As Per HPI, Blind Spots, Blurred Vision, Change in Vision, Decreased Night Vision, Diplopia, Discharge, Dry Eye, Exophthalmos, Floaters, Irritation, Itchy Eyes, Loss of Peripheral Vision, Pain, Photophobia, Requires Corrective Lenses, Sees Flashes, Spots in Vision, Tunnel Vision, Other Visual Disturbances, Loss of Vision, Other Ears: absent: As Per HPI, Decreased Hearing, Ear Discharge, Ear Pain, Tinnitus, Abnormal Hearing, Disequilibrium, Dizziness, Other Nose/Mouth/Throat: absent: As Per HPI, Epistaxis, Nasal Congestion, Nasal Discharge, Nasal Obstruction, Nasal Trauma, Nose Pain, Post Nasal Drip, Sinus Pain, Sinus Pressure, Bleeding Gums, Change in Voice, Dental Pain, Dry Mouth, Dysphagia, Halitosis, Hoarsness, Lip Swelling, Mouth Lesions, Mouth Pain, Odynophagia, Sore Throat, Throat Swelling, Tongue Swelling, Facial Pain, Neck Pain, Neck Mass, Other - Cardiovascular Cardiovascular: absent: As Per HPI, Acrocyanosis, Chest Pain, Chest Pain at Rest , Chest Pain with Activity, Claudication, Diaphoresis, Dyspnea, Dyspnea on Exertion, Edema, Irregular Heart Rhythm, Pain Radiating to Arm/Neck/Jaw, Leg Edema, Leg Ulcers, Lightheadedness, Orthopnea, Palpitations, Paroxysmal Nocturnal Dyspnea, Pedal Edema, Radiating Pain, Rapid Heart Rate, Slow Heart Rate, Syncope, Other - Respiratory Respiratory: absent: As Per HPI, Cough, Dyspnea, Hemoptysis, Dyspnea on Exertion , Wheezing, Snoring, Stridor, Pain on Inspiration, Chest Congestion, Excessive Mucous Production, Change in Mucous Color, Pain with Coughing, Other - Gastrointestinal Gastrointestinal: As Per HPI - Genitourinary Genitourinary: absent: As Per HPI, Change in Urinary Stream, Difficulty Urinating, Dysuria, Flank Pain, Hematuria, Pyuria, Nocturia, Urinary Incontinence, Urinary Frequency, Urinary Hesitance, Urinary Urgency, Voiding Freq/Small Amts, Freq UTI, Hx Renal/Bladder Calculi, Hx /Renal Surgery, Bladder Distension, Other - Musculoskeletal Musculoskeletal: absent: As Per HPI, Abnormal Gait, Arthralgias, Atrophy, Back Pain, Deformity, Joint Swelling, Limited Range of Motion, Loss of Height, Muscle Cramps, Muscle Weakness, Myalgias, Neck Pain, Numbness, Radiating Pain into Limb, Stiffness, Tingling, Other - Integumentary Integumentary: absent: As Per HPI, Acne, Alopecia, Bleeding Lesions, Change in Hair, Change in Nails, Change in Pigmentation, Changing Lesions, Dry Skin, Erythema, Furuncle, Hirsutism, Lesions, New Lesions, Non-Healing Lesions, Photosensitivity, Pruritus, Rash, Skin Pain, Skin Ulcer, Sores, Striae, Swelling , Unusual Bruising, Wounds, Jaundice, Other - Neurological Neurological: absent: As Per HPI, Abnormal Gait, Abnormal Hearing, Abnormal Movements, Abnormal Speech, Behavioral Changes, Burning Sensations, Confusion, Convulsions, Disequilibrium, Dizziness, Numbness, Focal Weakness, Frequent Falls , Headaches, Lack of Coordination, Loss of Vision, Memory Loss, Paresthesias, Radicular Pain, Restless Legs, Sensory Deficit, Syncope, Tingling, Tremor, Vertigo, Weakness, Other Visual Disturbances, Other - Psychiatric Psychiatric: absent: As Per HPI, Abnormal Sleep Pattern, Anhedonia, Anxiety, Auditory Hallucinations, Behavioral Changes, Change in Appetite, Change in Libido, Confusion, Depression, Difficulty Concentrating, Hallucinations, Homicidal Ideation, Hopelessness, Irritability, Memory Loss, Mood Swings, Panic Attacks, Paranoia, Suicidal Ideation, Visual Hallucinations, Tactile Hallucinations, Other - Endocrine Endocrine: absent: As Per HPI, Change in Body Appearance, Change in Libido, Cold Intolorance, Deepening of Voice, Excessive Sweating, Fatigue, Flushing, Heat Intolorance, Increase in Ring/Shoe/Hat Size, Palpitations, Polydipsia, Polyphagia, Polyuria, Other - Hematologic/Lymphatic Hematologic: absent: As Per HPI, Easy Bleeding, Easy Bruising, Lymphadenopathy, Other Past Patient History - Tetanus Immunizations Tetanus Immunization: Unknown - Past Medical History & Family History Past Medical History?: Yes - Past Social History Smoking Status: Never Smoked Alcohol: None Drugs: Denies Home Situation {Lives}: With Family - CARDIAC Hx Hypercholesterolemia: Yes Hx Hypertension: Yes - PULMONARY Hx Respiratory Disorders: No - NEUROLOGICAL Hx Neurological Disorder: No - HEENT Hx HEENT Problems: Yes Hx Glaucoma: Yes - RENAL Hx Chronic Kidney Disease: No - ENDOCRINE/METABOLIC Hx Endocrine Disorders: No - HEMATOLOGICAL/ONCOLOGICAL Hx Blood Disorders: Yes Hx Cancer: Yes (leukemia) Hx Chemotherapy: Yes (1 week ago) Hx Cirrhosis: No Hx Hepatitis A: No Hx Hepatitis B: No Hx Hepatitis C: No Hx Human Immunodeficiency Virus (HIV): No - INTEGUMENTARY Hx Dermatological Problems: No - MUSCULOSKELETAL/RHEUMATOLOGICAL Hx Musculoskeletal Disorders: No Hx Falls: No - GASTROINTESTINAL Hx Gastrointestinal Disorders: No Hx Bowel Surgery: No Hx Clostridium Difficile: No Hx Colitis: No Hx Colostomy: No Hx Constipation: Yes Hx Crohn's Disease: No Hx Diarrhea: No Hx Diverticulitis: No Hx Esophageal Varices: No Hx Fatty Liver Disease: No Hx Gall Bladder Disease: Yes (Had cholecystectomy) Hx Gastritis: No Hx Gastroesophageal Reflux: No Hx Hemorrhoids: No Hx Ileostomy: No Hx Irritable Bowel: No Hx Liver Failure: No Hx Nausea: No Hx Pancreatitis: No HX Swallowing Problems: No Hx Ulcer: No Hx Vomiting: No - GENITOURINARY/GYNECOLOGICAL Hx Genitourinary Disorders: No - PSYCHIATRIC Hx Substance Use: No - SURGICAL HISTORY Hx Cholecystectomy: Yes - ANESTHESIA Hx Anesthesia: Yes Hx Anesthesia Reactions: No Hx Malignant Hyperthermia: No Meds Allergies/Adverse Reactions: Allergies Allergy/AdvReac Type Severity Reaction Status Date / Time No Known Allergies Allergy Verified 01/26/18 16:30 - Medications Medications: Current Medications Heparin Sodium (Porcine) (Heparin) 5,000 units SC Q8 [facility] Last Admin: 04/12/18 13:40 Dose: 5,000 units Hydralazine HCl (Apresoline) 50 mg PO QID [facility] Last Admin: 04/12/18 13:39 Dose: 50 mg Ciprofloxacin (Cipro 400mg/200ml Dsw) 400 mg in 200 mls @ 133 mls/hr IVPB Q12H [facility] PRN Reason: Protocol Last Admin: 04/12/18 14:57 Dose: 133 mls/hr Metronidazole (Flagyl) 500 mg in 100 mls @ 100 mls/hr IVPB Q8H [facility] PRN Reason: Protocol Last Admin: 04/12/18 14:02 Dose: 100 mls/hr Lactated Ringer's (Lactated Ringer's) 1,000 mls @ 50 mls/hr IV .Q20H [facility] Last Admin: 04/12/18 13:40 Dose: 50 mls/hr Ketorolac Tromethamine (Toradol) 15 mg IVP Q6 PRN PRN Reason: Pain, moderate (4-7) Last Admin: 04/12/18 15:55 Dose: 15 mg Metoprolol Tartrate (Lopressor) 50 mg PO BID [facility] Pantoprazole Sodium (Protonix Inj) 40 mg IVP DAILY [facility] Last Admin: 04/12/18 10:02 Dose: 40 mg Tramadol HCl (Ultram) 50 mg PO Q12 PRN PRN Reason: pain Last Admin: 04/10/18 22:12 Dose: 50 mg Physical Exam - Constitutional Appears: Non-toxic, Chronically Ill - Head Exam Head Exam: NORMOCEPHALIC - Eye Exam Eye Exam: absent: Scleral icterus - ENT Exam ENT Exam: Mucous Membranes Dry - Neck Exam Neck exam: Negative for: Lymphadenopathy - Respiratory Exam Respiratory Exam: Decreased Breath Sounds - Cardiovascular Exam Cardiovascular Exam: REGULAR RHYTHM - GI/Abdominal Exam GI & Abdominal Exam: Diminished Bowel Sounds, Guarding, Soft, Tenderness. absent: Rebound, Rigid - Rectal Exam Rectal Exam: Deferred - Exam Exam: NORMAL INSPECTION - Extremities Exam Extremities exam: Positive for: pedal pulses present. Negative for: calf tenderness, pedal edema, tenderness - Back Exam Back exam: absent: CVA tenderness (L), CVA tenderness (R) - Neurological Exam Neurological exam: Alert, CN II-XII Intact, Oriented x3, Reflexes Normal - Psychiatric Exam Psychiatric exam: Normal Mood - Skin Skin Exam: Dry Results - Vital Signs Recent Vital Signs: Last Vital Signs Temp 98.4 F 04/12/18 08:17 Pulse 81 04/12/18 08:17 Resp 20 04/12/18 08:17 BP 140/70 04/12/18 10:01 Pulse Ox 98 04/12/18 08:17 - Labs Result Diagrams: 04/11/18 13:06 04/11/18 13:06 Assessment & Plan (1) Diverticulitis of colon Status: Acute (2) LLQ abdominal pain Status: Acute - Assessment and Plan (Free Text) Assessment: add merrem cont iv rx surgical eval
[2018-04-12] MEDS: Meropenem 1 GM in Sodium Chloride 0.9% 100 ML IVPB SCH (18:09)
--- NOTE | 2018-04-12 21:35 | CP.PCM.PN ---
Subjective - Date & Time of Evaluation Date of Evaluation: 04/12/18 Time of Evaluation: 21:34 - Subjective Subjective: Patient still continues to have a pain in the head. He also abdominal pain noted. No nausea. Patient is still nothing by mouth. But he is feeling extremely hungry at this time, did not have any BM today. Denies any nausea no vomiting noted On examination: Vital signs stable. Chest bilateral good air entry Regular heart sound Abdominal tenderness in the left lower quadrant noted. No recent labs today CT scan of the head which was done last night showing no evidence of any acute pathology. Patient had an episode of confusion, headache last night. Assessment and recommendation: 85-year-old male with a history of hypertension, lymphoma, lymphadenopathy now admitted with acute diverticulitis of the sigmoid colon. Infectious disease evaluation appreciated. On antibiotic. Will resume the feeding if possible tomorrow. Out of bed to chair. Continue the antihypertensive. DVT and GI prophylaxis will follow the patient Objective - Vital Signs/Intake and Output Vital Signs (last 24 hours): Temp Pulse Resp BP Pulse Ox 98.7 F 87 20 173/89 H 96 04/12/18 16:00 04/12/18 16:00 04/12/18 16:00 04/12/18 16:00 04/12/18 16:00 Intake and Output: 04/12/18 04/13/18 18:59 06:59 Intake Total 400 Balance 400 - Medications Medications: Current Medications Heparin Sodium (Porcine) (Heparin) 5,000 units SC Q8 [facility] Last Admin: 04/12/18 21:33 Dose: 5,000 units Hydralazine HCl (Apresoline) 50 mg PO QID [facility] Last Admin: 04/12/18 21:33 Dose: 50 mg Metronidazole (Flagyl) 500 mg in 100 mls @ 100 mls/hr IVPB Q8H [facility] PRN Reason: Protocol Last Admin: 04/12/18 14:02 Dose: 100 mls/hr Lactated Ringer's (Lactated Ringer's) 1,000 mls @ 50 mls/hr IV .Q20H [facility] Last Admin: 04/12/18 13:40 Dose: 50 mls/hr Meropenem 1 gm/ Sodium (Chloride) 100 mls @ 100 mls/hr IVPB Q8H [facility] PRN Reason: Protocol Last Admin: 04/12/18 18:09 Dose: 100 mls/hr Ketorolac Tromethamine (Toradol) 15 mg IVP Q6 PRN PRN Reason: Pain, moderate (4-7) Last Admin: 04/12/18 15:55 Dose: 15 mg Metoprolol Tartrate (Lopressor) 50 mg PO BID [facility] Last Admin: 04/12/18 18:12 Dose: 50 mg Pantoprazole Sodium (Protonix Inj) 40 mg IVP DAILY [facility] Last Admin: 04/12/18 10:02 Dose: 40 mg Tramadol HCl (Ultram) 50 mg PO Q12 PRN PRN Reason: pain Last Admin: 04/10/18 22:12 Dose: 50 mg - Labs Labs: 04/11/18 13:06 04/11/18 13:06
[2018-04-13] MEDS: Meropenem 1 GM in Sodium Chloride 0.9% 100 ML IVPB SCH ×3 (00:48→17:09)
[2018-04-13] MEDS: metroNIDAZOLE IV 500 mg/100 ml 500 MG/100 ML BAG IVPB SCH ×3 (06:03→22:20)
[2018-04-13 07:33] LABS: BASO # 0.1 K/uL (0.0-0.2); BASO % 1.5 % (0.0-2.0); EOS # 0.1 K/uL (0.0-0.7); EOS % 2.6 % (0.0-4.0); HEMOGLOBIN 11.8 g/dL (12.0-18.0); LYMPH # 1.2 K/uL (1.0-4.3); LYMPH % 34.8 % (20.0-40.0); MEAN CELL VOLUME 82.2 fL (80.0-94.0); MEAN CORPUSCULAR HEMOGLOBIN 27.7 pg (27.0-31.0); MEAN CORPUSCULAR HGB CONC 33.7 g/dL (33.0-37.0); MEAN PLATELET VOLUME 8.7 fL (7.2-11.7); MONO # 0.3 K/uL (0.0-0.8); MONO % 7.8 % (0.0-10.0); NEUT # 1.9 K/uL (1.8-7.0); NEUT % 53.3 % (50.0-75.0); NRBC % 0.2 % (0.0-2.0); RBC 4.26 Mil/uL (4.40-5.90); RED CELL DISTRIBUTION WIDTH 14.5 % (11.5-14.5); WHITE BLOOD COUNT 3.5 K/uL (4.8-10.8)
[2018-04-13 07:44] LABS: ALB/GLOB RATIO 1.3 (1.0-2.1); ALBUMIN 3.5 g/dL (3.5-5.0); ALT/SGPT 25 U/L (21-72); AST/SGOT 20 U/L (17-59); BLOOD UREA NITROGEN 10 mg/dL (9-20); GFR AFRICAN-AMERICAN > 60; GFR NON-AFRICAN AMERICAN > 60
--- NOTE | 2018-04-13 08:03 | CP.PCM.PN ---
Subjective - Date & Time of Evaluation Date of Evaluation: 04/13/18 Time of Evaluation: 06:45 - Subjective Subjective: Patient seen and examined. No acute events over night. Reports improvement of abdominal pain. Passing flatus. Denies fever/chills, nausea/vomiting. Objective - Vital Signs/Intake and Output Vital Signs (last 24 hours): Temp Pulse Resp BP Pulse Ox 98.8 F 72 20 134/74 95 04/12/18 23:45 04/12/18 23:45 04/12/18 23:45 04/12/18 23:45 04/12/18 23:45 Intake and Output: 04/13/18 04/13/18 06:59 18:59 Intake Total 850 Output Total 300 Balance 550 - Medications Medications: Current Medications Heparin Sodium (Porcine) (Heparin) 5,000 units SC Q8 [facility] Last Admin: 04/13/18 06:02 Dose: 5,000 units Hydralazine HCl (Apresoline) 50 mg PO QID [facility] Last Admin: 04/12/18 21:33 Dose: 50 mg Metronidazole (Flagyl) 500 mg in 100 mls @ 100 mls/hr IVPB Q8H [facility] PRN Reason: Protocol Last Admin: 04/13/18 06:03 Dose: 100 mls/hr Lactated Ringer's (Lactated Ringer's) 1,000 mls @ 50 mls/hr IV .Q20H [facility] Last Admin: 04/12/18 13:40 Dose: 50 mls/hr Meropenem 1 gm/ Sodium (Chloride) 100 mls @ 100 mls/hr IVPB Q8H [facility] PRN Reason: Protocol Last Admin: 04/13/18 00:48 Dose: 100 mls/hr Ketorolac Tromethamine (Toradol) 15 mg IVP Q6 PRN PRN Reason: Pain, moderate (4-7) Last Admin: 04/12/18 15:55 Dose: 15 mg Metoprolol Tartrate (Lopressor) 50 mg PO BID [facility] Last Admin: 04/12/18 18:12 Dose: 50 mg Pantoprazole Sodium (Protonix Inj) 40 mg IVP DAILY [facility] Last Admin: 04/12/18 10:02 Dose: 40 mg Tramadol HCl (Ultram) 50 mg PO Q12 PRN PRN Reason: pain Last Admin: 04/10/18 22:12 Dose: 50 mg - Labs Labs: 04/13/18 07:01 04/13/18 07:01 - Constitutional Appears: No Acute Distress - Head Exam Head Exam: NORMOCEPHALIC - Eye Exam Eye Exam: Normal appearance - ENT Exam ENT Exam: Mucous Membranes Moist - Respiratory Exam Respiratory Exam: NORMAL BREATHING PATTERN - Cardiovascular Exam Cardiovascular Exam: +S1, +S2 - GI/Abdominal Exam GI & Abdominal Exam: Soft, Tenderness Additional comments: LLQ tenderness, improve - Neurological Exam Neurological Exam: Alert, Awake, Oriented x3 - Psychiatric Exam Psychiatric exam: Normal Mood - Skin Skin Exam: Intact, Normal Color, Warm Assessment and Plan - Assessment and Plan (Free Text) Assessment: 87M with sigmoid diverticulitis Plan: advance to clears c/w ABx C/w analgesics DVT ppx Medical management per primary team D/w Dr. Esthela Blank PGY3
--- NOTE | 2018-04-13 12:11 | CP.PCM.PN ---
Subjective - Date & Time of Evaluation Date of Evaluation: 04/13/18 Time of Evaluation: 09:00 - Subjective Subjective: Reports improvement of abdominal pain. Passing flatus. Denies fever/chills, nausea/vomiting. Objective - Vital Signs/Intake and Output Vital Signs (last 24 hours): Temp Pulse Resp BP Pulse Ox 98.5 F 83 18 185/94 H 95 04/13/18 08:10 04/13/18 08:10 04/13/18 08:10 04/13/18 08:10 04/13/18 08:10 Intake and Output: 04/13/18 04/13/18 06:59 18:59 Intake Total 850 Output Total 300 Balance 550 - Medications Medications: Current Medications Heparin Sodium (Porcine) (Heparin) 5,000 units SC Q8 [facility] Last Admin: 04/13/18 06:02 Dose: 5,000 units Hydralazine HCl (Apresoline) 50 mg PO QID [facility] Last Admin: 04/13/18 09:00 Dose: 50 mg Metronidazole (Flagyl) 500 mg in 100 mls @ 100 mls/hr IVPB Q8H [facility] PRN Reason: Protocol Last Admin: 04/13/18 06:03 Dose: 100 mls/hr Lactated Ringer's (Lactated Ringer's) 1,000 mls @ 50 mls/hr IV .Q20H [facility] Last Admin: 04/12/18 13:40 Dose: 50 mls/hr Meropenem 1 gm/ Sodium (Chloride) 100 mls @ 100 mls/hr IVPB Q8H [facility] PRN Reason: Protocol Last Admin: 04/13/18 09:00 Dose: 100 mls/hr Ketorolac Tromethamine (Toradol) 15 mg IVP Q6 PRN PRN Reason: Pain, moderate (4-7) Last Admin: 04/12/18 15:55 Dose: 15 mg Metoprolol Tartrate (Lopressor) 50 mg PO BID [facility] Last Admin: 04/13/18 08:59 Dose: 50 mg Pantoprazole Sodium (Protonix Inj) 40 mg IVP DAILY [facility] Last Admin: 04/13/18 08:59 Dose: 40 mg Tramadol HCl (Ultram) 50 mg PO Q12 PRN PRN Reason: pain Last Admin: 04/10/18 22:12 Dose: 50 mg - Labs Labs: 04/13/18 07:01 04/13/18 07:01 - Constitutional Appears: Non-toxic, Chronically Ill - Head Exam Head Exam: NORMOCEPHALIC - Eye Exam Eye Exam: PERRL - ENT Exam ENT Exam: Mucous Membranes Dry - Neck Exam Neck Exam: absent: Lymphadenopathy - Respiratory Exam Respiratory Exam: Decreased Breath Sounds - Cardiovascular Exam Cardiovascular Exam: REGULAR RHYTHM - GI/Abdominal Exam GI & Abdominal Exam: Distended Assessment and Plan (1) Diverticulitis of colon Status: Acute (2) LLQ abdominal pain Status: Acute
--- NOTE | 2018-04-13 15:33 | CP.PCM.PN ---
Subjective - Date & Time of Evaluation Date of Evaluation: 04/13/18 Time of Evaluation: 15:32 - Subjective Subjective: LLQ pain improving Objective - Vital Signs/Intake and Output Vital Signs (last 24 hours): Temp Pulse Resp BP Pulse Ox 98.5 F 83 18 185/94 H 95 04/13/18 08:10 04/13/18 08:10 04/13/18 08:10 04/13/18 08:10 04/13/18 08:10 Intake and Output: 04/13/18 04/13/18 06:59 18:59 Intake Total 850 840 Output Total 300 Balance 550 840 - Medications Medications: Current Medications Heparin Sodium (Porcine) (Heparin) 5,000 units SC Q8 [facility] Last Admin: 04/13/18 13:56 Dose: 5,000 units Hydralazine HCl (Apresoline) 50 mg PO QID [facility] Last Admin: 04/13/18 13:56 Dose: 50 mg Metronidazole (Flagyl) 500 mg in 100 mls @ 100 mls/hr IVPB Q8H [facility] PRN Reason: Protocol Last Admin: 04/13/18 14:01 Dose: 100 mls/hr Lactated Ringer's (Lactated Ringer's) 1,000 mls @ 50 mls/hr IV .Q20H [facility] Last Admin: 04/12/18 13:40 Dose: 50 mls/hr Meropenem 1 gm/ Sodium (Chloride) 100 mls @ 100 mls/hr IVPB Q8H [facility] PRN Reason: Protocol Last Admin: 04/13/18 09:00 Dose: 100 mls/hr Ketorolac Tromethamine (Toradol) 15 mg IVP Q6 PRN PRN Reason: Pain, moderate (4-7) Last Admin: 04/12/18 15:55 Dose: 15 mg Metoprolol Tartrate (Lopressor) 50 mg PO BID [facility] Last Admin: 04/13/18 08:59 Dose: 50 mg Pantoprazole Sodium (Protonix Inj) 40 mg IVP DAILY [facility] Last Admin: 04/13/18 08:59 Dose: 40 mg Tramadol HCl (Ultram) 50 mg PO Q12 PRN PRN Reason: pain Last Admin: 04/10/18 22:12 Dose: 50 mg - Labs Labs: 04/13/18 07:01 04/13/18 07:01 - Constitutional Appears: Well, No Acute Distress - Cardiovascular Exam Cardiovascular Exam: REGULAR RHYTHM - GI/Abdominal Exam GI & Abdominal Exam: Soft. 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
[2018-04-13 15:51] VITALS: RESP 20
[2018-04-13] MEDS: Lactated Ringer's 1,000 ML IV SCH (15:55)
--- NOTE | 2018-04-13 19:29 | CP.PCM.PN ---
Subjective - Date & Time of Evaluation Date of Evaluation: 04/13/18 Time of Evaluation: 19:29 - Subjective Subjective: Patient having much improvement in the pain in the left lower quadrant. Did not have a BMP He was tolerating the liquid diet. On examination: Vital signs stable. Blood pressure on the high side. Chest bilateral good air entry Regular heart sounds Left lower quadrant minimal tenderness noted Patient was seen by infectious disease, on meropenem, Flagyl. Assessment and recommendation: 85-year-old male with a history of lymphoma, metastatic, lymphadenopathy, status post chemotherapy. Currently admitted with a possible acute colitis. Acute diverticulitis. Slight improvement, will continue to monitor and will follow the patient Objective - Vital Signs/Intake and Output Vital Signs (last 24 hours): Temp Pulse Resp BP Pulse Ox 98.3 F 73 20 169/89 H 94 L 04/13/18 15:00 04/13/18 15:00 04/13/18 15:00 04/13/18 15:00 04/13/18 15:00 Intake and Output: 04/13/18 04/14/18 18:59 06:59 Intake Total 840 Balance 840 - Medications Medications: Current Medications Heparin Sodium (Porcine) (Heparin) 5,000 units SC Q8 [facility] Last Admin: 04/13/18 13:56 Dose: 5,000 units Hydralazine HCl (Apresoline) 50 mg PO QID [facility] Last Admin: 04/13/18 17:10 Dose: 50 mg Metronidazole (Flagyl) 500 mg in 100 mls @ 100 mls/hr IVPB Q8H [facility] PRN Reason: Protocol Last Admin: 04/13/18 14:01 Dose: 100 mls/hr Lactated Ringer's (Lactated Ringer's) 1,000 mls @ 50 mls/hr IV .Q20H [facility] Last Admin: 04/13/18 15:55 Dose: Not Given Meropenem 1 gm/ Sodium (Chloride) 100 mls @ 100 mls/hr IVPB Q8H [facility] PRN Reason: Protocol Last Admin: 04/13/18 17:09 Dose: 100 mls/hr Ketorolac Tromethamine (Toradol) 15 mg IVP Q6 PRN PRN Reason: Pain, moderate (4-7) Last Admin: 04/12/18 15:55 Dose: 15 mg Metoprolol Tartrate (Lopressor) 50 mg PO BID [facility] Last Admin: 04/13/18 17:10 Dose: 50 mg Pantoprazole Sodium (Protonix Inj) 40 mg IVP DAILY [facility] Last Admin: 04/13/18 08:59 Dose: 40 mg Tramadol HCl (Ultram) 50 mg PO Q12 PRN PRN Reason: pain Last Admin: 04/10/18 22:12 Dose: 50 mg - Labs Labs: 04/13/18 07:01 04/13/18 07:01
[2018-04-14] MEDS: Meropenem 1 GM in Sodium Chloride 0.9% 100 ML IVPB SCH ×3 (00:27→17:26)
[2018-04-14] MEDS: Lactated Ringer's 1,000 ML IV SCH (00:30)
--- NOTE | 2018-04-14 07:10 | CP.PCM.PN ---
Subjective - Date & Time of Evaluation Date of Evaluation: 04/14/18 Time of Evaluation: 06:40 - Subjective Subjective: General Surgery Note for Dr. Proctor Patient seen and examined at bedside. No acute event overnight. Patient still complains of LLQ pain but states controlled. Patient is tolerating liquid diet. He states he is passing flatus but no BM. Denies fever/chills, nausea/vomiting, diarrhea. Objective - Vital Signs/Intake and Output Vital Signs (last 24 hours): Temp Pulse Resp BP Pulse Ox 98.4 F 73 20 158/82 H 97 04/14/18 00:09 04/14/18 00:09 04/14/18 00:09 04/14/18 00:09 04/14/18 00:09 - Medications Medications: Current Medications Hydralazine HCl (Apresoline) 50 mg PO QID [facility] Last Admin: 04/13/18 21:35 Dose: 50 mg Lactated Ringer's (Lactated Ringer's) 1,000 mls @ 50 mls/hr IV .Q20H [facility] Last Admin: 04/14/18 00:30 Dose: 50 mls/hr Meropenem 1 gm/ Sodium (Chloride) 100 mls @ 100 mls/hr IVPB Q8H [facility] PRN Reason: Protocol Last Admin: 04/14/18 00:27 Dose: 100 mls/hr Ketorolac Tromethamine (Toradol) 15 mg IVP Q6 PRN PRN Reason: Pain, moderate (4-7) Last Admin: 04/12/18 15:55 Dose: 15 mg Metoprolol Tartrate (Lopressor) 50 mg PO BID [facility] Last Admin: 04/13/18 17:10 Dose: 50 mg Pantoprazole Sodium (Protonix Inj) 40 mg IVP DAILY [facility] Last Admin: 04/13/18 08:59 Dose: 40 mg Tramadol HCl (Ultram) 50 mg PO Q12 PRN PRN Reason: pain Last Admin: 04/10/18 22:12 Dose: 50 mg - Labs Labs: 04/13/18 07:01 04/13/18 07:01 - Additional Findings Additional findings: - Constitutional Appears: No Acute Distress - Head Exam Head Exam: NORMOCEPHALIC - Eye Exam Eye Exam: Normal appearance - ENT Exam ENT Exam: Mucous Membranes Moist - Respiratory Exam Respiratory Exam: NORMAL BREATHING PATTERN - Cardiovascular Exam Cardiovascular Exam: +S1, +S2 - GI/Abdominal Exam GI & Abdominal Exam: Soft, Tenderness Additional comments: LLQ tenderness, improving - Neurological Exam Neurological Exam: Alert, Awake, Oriented x3 - Psychiatric Exam Psychiatric exam: Normal Mood - Skin Skin Exam: Intact, Normal Color, Warm Assessment and Plan - Assessment and Plan (Free Text) Assessment: 87M with sigmoid diverticulitis Plan: CLD, ADAT IV Antibiotics Analgesics PRN DVT ppx Medical management per primary team Further recommendations as per Dr. Esthela Medrano PGY2
[2018-04-14 07:19] LABS: BASO % 1.2 % (0.0-2.0); EOS # 0.1 K/uL (0.0-0.7); EOS % 2.9 % (0.0-4.0); HEMOGLOBIN 12.1 g/dL (12.0-18.0); LYMPH # 1.1 K/uL (1.0-4.3); MEAN CELL VOLUME 82.1 fL (80.0-94.0); MEAN CORPUSCULAR HEMOGLOBIN 27.8 pg (27.0-31.0); MEAN CORPUSCULAR HGB CONC 33.8 g/dL (33.0-37.0); MEAN PLATELET VOLUME 8.8 fL (7.2-11.7); MONO # 0.2 K/uL (0.0-0.8); MONO % 6.5 % (0.0-10.0); NEUT # 1.9 K/uL (1.8-7.0); NEUT % 55.4 % (50.0-75.0); NRBC % 0.1 % (0.0-2.0); RBC 4.36 Mil/uL (4.40-5.90); RED CELL DISTRIBUTION WIDTH 14.3 % (11.5-14.5); WHITE BLOOD COUNT 3.4 K/uL (4.8-10.8)
[2018-04-14 07:32] LABS: ALB/GLOB RATIO 1.4 (1.0-2.1); ALBUMIN 3.4 g/dL (3.5-5.0); ALT/SGPT 29 U/L (21-72); AST/SGOT 23 U/L (17-59); BLOOD UREA NITROGEN 8 mg/dL (9-20); CALCIUM 9.1 mg/dl (8.6-10.4); GFR AFRICAN-AMERICAN > 60; GFR NON-AFRICAN AMERICAN > 60
[2018-04-14] MEDS ORDERED: Potassium Chloride 20 mEq ER Tab PO ONE (07:40)
--- NOTE | 2018-04-14 08:34 | CON ---
DATE: 04/13/2018 ONCOLOGY CONSULTATION HISTORY OF PRESENT ILLNESS: This is an 87-year-old male with known chronic lymphocytic leukemia. The patient was treated with recurrent CLL with a large lymphadenopathy by Dr. Patel in the office. He received a second course of Rituxan chemotherapy and he came in on Friday to the office complaining of three days of abdominal pain and inability to move his bowels. He may have even had rebound of severe tenderness throughout his abdomen and was sent emergency room right away where the feeling was worse, and he had an acute diverticulitis. PHYSICAL EXAMINATION: SKIN: No petechiae, no bruises. HEENT: Anicteric. NODES: Nonpalpable in the axillary, cervical, supraclavicular, or inguinal regions. LUNGS: Clear at present. The patient is able to lie flat in bed. HEART: S1, S2. ABDOMEN: Shows distended abdomen. No rebound, no ascites. No liver, no spleen. Some diffuse tenderness, but markedly decreased from Friday. EXTREMITIES: No edema. CENTRAL NERVOUS SYSTEMS: No focal findings. LABORATORY DATA: CAT scan showed a spleen of 13.3 cm. 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 So, the patient is receiving antibiotics at this point under the infectious disease specialist, Dr. Ocasio, and we will see how he does over the next couple of days. He was treated with Cipro, Flagyl, and IV fluids. His laboratory findings show white count of 7 that went down to 3.5 with normal differential, hemoglobin 11.8, platelet count 180 so the chemotherapy did not affect his blood counts. At this point, he is being treated with the antibiotics. Adrian Sheppard MD
--- NOTE | 2018-04-14 12:28 | CP.PCM.PN ---
Subjective - Date & Time of Evaluation Date of Evaluation: 04/14/18 Time of Evaluation: 10:00 - Subjective Subjective: less pain tolerating po Objective - Vital Signs/Intake and Output Vital Signs (last 24 hours): Temp Pulse Resp BP Pulse Ox 98.4 F 73 20 158/82 H 97 04/14/18 00:09 04/14/18 00:09 04/14/18 00:09 04/14/18 00:09 04/14/18 00:09 - Medications Medications: Current Medications Hydralazine HCl (Apresoline) [address] [facility] Last Admin: 04/14/18 09:31 Dose: 50 mg Lactated Ringer's (Lactated Ringer's) 1,000 mls @ 50 mls/hr IV .Q20H [facility] Last Admin: 04/14/18 00:30 Dose: 50 mls/hr Meropenem 1 gm/ Sodium (Chloride) 100 mls @ 100 mls/hr IVPB Q8H [facility] PRN Reason: Protocol Last Admin: 04/14/18 07:48 Dose: 100 mls/hr Ketorolac Tromethamine (Toradol) 15 mg IVP Q6 PRN PRN Reason: Pain, moderate (4-7) Last Admin: 04/12/18 15:55 Dose: 15 mg Metoprolol Tartrate (Lopressor) [address] [facility] Last Admin: 04/14/18 09:31 Dose: 50 mg Pantoprazole Sodium (Protonix Inj) [address] [facility] Last Admin: 04/14/18 09:31 Dose: 40 mg Tramadol HCl (Ultram) 50 mg PO Q12 PRN PRN Reason: pain Last Admin: 04/10/18 22:12 Dose: 50 mg - Labs Labs: 04/14/18 07:04 04/14/18 07:04 - Constitutional Appears: Non-toxic, Chronically Ill - Head Exam Head Exam: NORMOCEPHALIC - Eye Exam Eye Exam: PERRL - ENT Exam ENT Exam: Mucous Membranes Dry - Neck Exam Neck Exam: absent: Lymphadenopathy - Respiratory Exam Respiratory Exam: Decreased Breath Sounds - Cardiovascular Exam Cardiovascular Exam: REGULAR RHYTHM - GI/Abdominal Exam GI & Abdominal Exam: Distended - Rectal Exam Rectal Exam: Deferred - Exam Exam: NORMAL INSPECTION - Extremities Exam Extremities Exam: absent: Pedal Edema - Back Exam Back Exam: absent: CVA tenderness (L), CVA tenderness (R) Assessment and Plan (1) Diverticulitis of colon Status: Acute (2) LLQ abdominal pain Status: Acute - Assessment and Plan (Free Text) Assessment: cont iv rx for now as per dr Naidu
--- NOTE | 2018-04-14 13:52 | CP.PCM.PN ---
Subjective - Date & Time of Evaluation Date of Evaluation: 04/14/18 Time of Evaluation: 13:50 - Subjective Subjective: F/u diverticulitis Feels better. Abdom pain much better. Family presenet. Denannabels Sz, CP, SOB, RB, melena, BOBO, cough Objective - Vital Signs/Intake and Output Vital Signs (last 24 hours): Temp Pulse Resp BP Pulse Ox 98.4 F 73 20 158/82 H 97 04/14/18 00:09 04/14/18 00:09 04/14/18 00:09 04/14/18 00:09 04/14/18 00:09 - Medications Medications: Current Medications Hydralazine HCl (Apresoline) 50 mg PO QID [facility] Last Admin: 04/14/18 13:13 Dose: 50 mg Lactated Ringer's (Lactated Ringer's) 1,000 mls @ 50 mls/hr IV .Q20H [facility] Last Admin: 04/14/18 00:30 Dose: 50 mls/hr Meropenem 1 gm/ Sodium (Chloride) 100 mls @ 100 mls/hr IVPB Q8H [facility] PRN Reason: Protocol Last Admin: 04/14/18 07:48 Dose: 100 mls/hr Ketorolac Tromethamine (Toradol) 15 mg IVP Q6 PRN PRN Reason: Pain, moderate (4-7) Last Admin: 04/12/18 15:55 Dose: 15 mg Metoprolol Tartrate (Lopressor) 50 mg PO BID [facility] Last Admin: 04/14/18 09:31 Dose: 50 mg Pantoprazole Sodium (Protonix Inj) 40 mg IVP DAILY [facility] Last Admin: 04/14/18 09:31 Dose: 40 mg Tramadol HCl (Ultram) 50 mg PO Q12 PRN PRN Reason: pain Last Admin: 04/10/18 22:12 Dose: 50 mg - Labs Labs: 04/14/18 07:04 04/14/18 07:04 - Constitutional Appears: Well - Respiratory Exam Respiratory Exam: Clear to Ausculation Bilateral - Cardiovascular Exam Cardiovascular Exam: RRR - GI/Abdominal Exam GI & Abdominal Exam: Soft, Normal Bowel Sounds. absent: Guarding, Tenderness, Mass, Rebound - Back Exam Back Exam: absent: CVA tenderness (L) - Neurological Exam Neurological Exam: Alert, Oriented x3 Assessment and Plan (1) Constipation Status: Acute (2) Diverticulitis of colon Assessment & Plan: Improving. Less pain. Diet- increased. GI- better Status: Acute (3) LLQ abdominal pain Status: Acute (4) Hypertension Status: Acute (5) Lymphoma Assessment & Plan: CLL Status: Acute
--- NOTE | 2018-04-14 20:15 | CP.PCM.PN ---
Subjective - Date & Time of Evaluation Date of Evaluation: 04/14/18 Time of Evaluation: 20:15 - Subjective Subjective: Patient now feeling much better. The abdominal pain is less than before. He had a BM today. Tolerating the oral feeding On examination: Vital signs stable. Elevated blood pressure noted Chest good air entry Regular heart sounds Nontender abdomen. No pedal edema Assessment and recommendation: 85-year-old male with a history of lymphoma, status post chemotherapy recently, also had an episode of leukopenia, currently better. Admitted now with acute diverticulitis, improving. We will continue the current treatment. If he tolerates the feeding by tomorrow, possibly discharge plan tomorrow after discussion with ID for antibiotic Objective - Vital Signs/Intake and Output Vital Signs (last 24 hours): Temp Pulse Resp BP Pulse Ox 98.2 F 62 20 164/81 H 95 04/14/18 15:00 04/14/18 15:00 04/14/18 15:00 04/14/18 15:00 04/14/18 15:08 Intake and Output: 04/14/18 04/15/18 18:59 06:59 Intake Total 700 Balance 700 - Medications Medications: Current Medications Hydralazine HCl (Apresoline) 50 mg PO QID [facility] Last Admin: 04/14/18 17:27 Dose: 50 mg Meropenem 1 gm/ Sodium (Chloride) 100 mls @ 100 mls/hr IVPB Q8H [facility] PRN Reason: Protocol Last Admin: 04/14/18 17:26 Dose: 100 mls/hr Metoprolol Tartrate (Lopressor) 50 mg PO BID [facility] Last Admin: 04/14/18 17:27 Dose: 50 mg Pantoprazole Sodium (Protonix Inj) 40 mg IVP DAILY [facility] Last Admin: 04/14/18 09:31 Dose: 40 mg Tramadol HCl (Ultram) 50 mg PO Q12 PRN PRN Reason: pain Last Admin: 04/10/18 22:12 Dose: 50 mg - Labs Labs: 04/14/18 07:04 04/14/18 07:04
[2018-04-15] MEDS: Meropenem 1 GM in Sodium Chloride 0.9% 100 ML IVPB SCH ×2 (01:30→07:46)
[2018-04-15] MEDS ORDERED: Pantoprazole 40 mg EC Tab PO SCH (10:00)
--- NOTE | 2018-04-15 11:07 | CP.PCM.PN ---
Subjective - Date & Time of Evaluation Date of Evaluation: 04/15/18 Time of Evaluation: 11:06 - Subjective Subjective: less abdominal pain On antibiotics Objective - Vital Signs/Intake and Output Vital Signs (last 24 hours): Temp Pulse Resp BP Pulse Ox 98.4 F 79 20 193/102 H 95 04/15/18 07:15 04/15/18 07:15 04/15/18 07:15 04/15/18 07:15 04/15/18 07:15 Intake and Output: 04/15/18 04/15/18 06:59 18:59 Intake Total 250 Output Total 600 Balance -350 - Medications Medications: Current Medications Hydralazine HCl (Apresoline) 50 mg PO QID [facility] Last Admin: 04/15/18 09:16 Dose: 50 mg Meropenem 1 gm/ Sodium (Chloride) 100 mls @ 100 mls/hr IVPB Q8H [facility] PRN Reason: Protocol Last Admin: 04/15/18 07:46 Dose: 100 mls/hr Metoprolol Tartrate (Lopressor) 50 mg PO BID [facility] Last Admin: 04/15/18 09:16 Dose: 50 mg Pantoprazole Sodium (Protonix Ec Tab) 40 mg PO DAILY [facility] Last Admin: 04/15/18 09:16 Dose: 40 mg Tramadol HCl (Ultram) 50 mg PO Q12 PRN PRN Reason: pain Last Admin: 04/10/18 22:12 Dose: 50 mg - Labs Labs: 04/14/18 07:04 04/14/18 07:04 - Constitutional Appears: Well - Respiratory Exam Respiratory Exam: NORMAL BREATHING PATTERN - Cardiovascular Exam Cardiovascular Exam: REGULAR RHYTHM - GI/Abdominal Exam GI & Abdominal Exam: Soft (Mild suprapubic tenderness) Assessment and Plan (1) Diverticulitis of colon Assessment & Plan: Improving Rec: 2 week course of antibiotics Status: Acute (2) CLL (chronic lymphocytic leukemia) Assessment & Plan: Evaluated by dr Sheppard Status: Chronic
--- NOTE | 2018-04-15 13:48 | CP.PCM.PN ---
Subjective - Date & Time of Evaluation Date of Evaluation: 04/15/18 Time of Evaluation: 10:15 - Subjective Subjective: General Surgery Note for Dr. Proctor Patient seen and examined at bedside. No acute event overnight. Patient states LLQ pain has improved. Patient is tolerating diet, may advance as tolerated. He states he is passing flatus and has had multiple BMs. Denies fever/chills, nausea/vomiting, diarrhea. Patient is eager to go home. Objective - Vital Signs/Intake and Output Vital Signs (last 24 hours): Temp Pulse Resp BP Pulse Ox 98.4 F 79 20 193/102 H 95 04/15/18 07:15 04/15/18 07:15 04/15/18 07:15 04/15/18 07:15 04/15/18 07:15 Intake and Output: 04/15/18 04/15/18 06:59 18:59 Intake Total 250 Output Total 600 Balance -350 - Medications Medications: Current Medications Hydralazine HCl (Apresoline) 50 mg PO QID [facility] Last Admin: 04/15/18 13:37 Dose: 50 mg Meropenem 1 gm/ Sodium (Chloride) 100 mls @ 100 mls/hr IVPB Q8H [facility] PRN Reason: Protocol Last Admin: 04/15/18 07:46 Dose: 100 mls/hr Metoprolol Tartrate (Lopressor) 50 mg PO BID [facility] Last Admin: 04/15/18 09:16 Dose: 50 mg Pantoprazole Sodium (Protonix Ec Tab) 40 mg PO DAILY [facility] Last Admin: 04/15/18 09:16 Dose: 40 mg Tramadol HCl (Ultram) 50 mg PO Q12 PRN PRN Reason: pain Last Admin: 04/10/18 22:12 Dose: 50 mg - Labs Labs: 04/14/18 07:04 04/14/18 07:04 - Additional Findings Additional findings: - Constitutional Appears: No Acute Distress - Head Exam Head Exam: NORMOCEPHALIC - Eye Exam Eye Exam: Normal appearance - ENT Exam ENT Exam: Mucous Membranes Moist - Respiratory Exam Respiratory Exam: NORMAL BREATHING PATTERN - Cardiovascular Exam Cardiovascular Exam: Regular rhythm, +S1, +S2 - GI/Abdominal Exam GI & Abdominal Exam: Soft, Tenderness Additional comments: minimal LLQ tenderness - Neurological Exam Neurological Exam: Alert, Awake, Oriented x3 - Psychiatric Exam Psychiatric exam: Normal Mood - Skin Skin Exam: Intact, Normal Color, Warm Assessment and Plan - Assessment and Plan (Free Text) Assessment: 87M with sigmoid diverticulitis Plan: HHD, low residual Antibiotics Analgesics PRN Medical management per primary team No surgical intervention needed at this time Patient clear for discharge from surgical standpoint Recomend colonoscopy in 6 weeks Further recommendations as per Dr. Esthela Medrano PGY2
--- NOTE | 2018-04-15 15:52 | CP.PCM.PN ---
Subjective - Date & Time of Evaluation Date of Evaluation: 04/15/18 Time of Evaluation: 15:40 - Subjective Subjective: PT CLEARED FOR D/C TODAY HOME PER DR. TRUONG. GI SAW PT THIS MORNING AND REC 14 DAYS ABX. I SPOKE W DR. ARMANDO WHO RECOMMENDS CIPRO AND FLAGYL X14 DAYS. I DISCUSSED MEDICATIONS, DIET, F/U, AND D/C INFORMATION WITH THE PT AND INSTRUCTED HIM TO RETURN FOR FEVER/CHILLS OR WORSENING GI SYMPTOMS. PT VERBALIZES UNDERSTANDING. RX SENT DIRECTLY TO PT'S PHARMACY PER HIS REQUEST, AND PER PT THE PHARMACY WILL DELIVER THE MEDICATIONS TO [facility]. SEE BELOW FOR SPECIFIC D/C INFORMATION PROVIDED TO PT. NO FURTHER ORDERS. -FOLLOW UP WITH DR. TRUONG IN HIS OFFICE WITHIN 5-7 DAYS OF DISCHARGE--CALL THE OFFICE TO MAKE AN APPOINTMENT. -FOLLOW UP WITH DR. OSUZA (STOMACH DOCTOR) AND DR. CARL AND/OR ISAAC ( ONCOLOGY) IN THEIR OFFICES WITHIN 5-7 DAYS OF DISCHARGE-- CALL THE OFFICE TO MAKE AN APPOINTMENT. -YOU HAVE BEEN PRESCRIBED 2 ANTIBIOTICS FOR YOUR STOMACH/INTESTINE INFECTION AND INFLAMMATION FOR 2 WEEKS PER YOUR DOCTORS; THE MEDICATIONS HAVE BEEN SENT TO YOUR PHARMACY--TAKE EXACTLY PRESCRIBED: 1) CIPRO 500 MG---TAKE ONE TABLET BY MOUTH TWICE A DAY (MORNING AND EVENING). 2) FLAGYL 250 MG ---TAKE ONE TABLET BY MOUTH THREE TIMES A DAY (MORNING, AFTERNOON AND EVENING). 3) FLORASTOR (VITAMIN FOR YOUR STOMACH/INTESTINES)---TAKE ONE TABLET BY MOUTH TWICE A DAY (MORNING AND EVENING). 4) PROTONIX 40 MG---FOR YOUR STOMACH---TAKE ONE TABLET BY MOUTH ONCE A DAY. 5) HYDRALAZINE 50 MG---FOR YOUR BLOOD PRESSURE---TAKE ONE TABLET BY MOUTH 4 TIMES A DAY (MORNING, AFTERNOON, EVENING, BEDTIME). 6) METOPROLOL 50 MG---FOR YOUR BLOOD PRESSURE---TAKE ONE TABLET BY MOUTH TWICE A DAY (MORNING AND EVENING). -PLEASE KEEP HYDRATED AND EAT A DIVERTICULOSIS FRIENDLY DIET. -IF YOU HAVE ANY FURTHER QUESTIONS OR CONCERNS, CONTACT DR. TRUONG'S OFFICE. - SEGUIMIENTO CON EL DR. TRUONG EN AWDA OFICINA EN EL PLAZO DE 5-7 MACARIO DE LA DESCAR[place] - LLAME A LA OFICINA PARA HACER RAJAT AVTAR. - SEGUIMIENTO CON EL DR. SOUZA (DOCTOR DE ESTMAGO) Y DR. CARL Y / O ISAAC (ONCOLOGY) EN BAL OFICINAS EN EL PLAZO DE 5-7 MACARIO DE DESCARGAS LLAME A LA OFICINA PARA HACER RAJAT AVTAR. -PATEL SIDO PRESCRITO 2 ANTIBITICOS PARA AWAD INFECCIN / INFLAMACIN DE ESTMAGO / INTESTINO POR 2 SEMANAS POR BAL MDICOS; LOS MEDICAMENTOS TIENEN SE BOBO ENVIADO A AWAD FARMACIA, TMELO EXACTAMENTE LUDY SE PRESCRIBE: 1) CIPRO 500 MG --- TOME RAJAT TABLETA POR LA BOCA DOS VECES AL DA (MAANA Y POR LA NOCHE). 2) FLAGYL 250 MG --- TOME RAJAT TABLETA POR BOCA [place] VECES AL DA (MAANA, POR LA TARDE Y POR LA NOCHE). 3) FLORASTOR (VITAMINA PARA AWAD ESTMAGO / INTESTINOS) --- TOME RAJAT TABLETA POR BOCA DOS VECES AL DA (POR LA MAANA Y POR LA NOCHE). 4) PROTONIX 40 MG --- PARA AWAD ESTMAGO --- TOME RAJAT TABLETA POR BOCA RAJAT VEZ AL DA. 5) HYDRALAZINE 50 MG --- PARA AWAD PRESIN ARTERIAL --- TOME RAJAT TABLETA POR BOCA 4 VECES AL DA (MAANA, TARDE, TARDE, TIEMPO DE CAMA). 6) METOPROLOL 50 MG --- PARA AWAD PRESIN ARTERIAL --- TOME RAJAT TABLETA POR BOCA DOS VECES AL DA (MAANA Y POR LA NOCHE). - POR FAVOR MANTNGASE HIDRATADO Y COMA RAJAT DIETA DE DIVERTICULOSIS AMISTOSA. -SI TIENE ALGUNA OTRA PREGUNTA O PREOCUPACIN, PNGASE EN CONTACTO CON EL DR. RADHA PURI. Objective - Vital Signs/Intake and Output Vital Signs (last 24 hours): Temp Pulse Resp BP Pulse Ox 98.4 F 79 20 193/102 H 95 04/15/18 07:15 04/15/18 07:15 04/15/18 07:15 04/15/18 07:15 04/15/18 07:15 Intake and Output: 04/15/18 04/15/18 06:59 18:59 Intake Total 250 Output Total 600 Balance -350 - Medications Medications: Current Medications Hydralazine HCl (Apresoline) 50 mg PO QID [facility] Last Admin: 04/15/18 13:37 Dose: 50 mg Meropenem 1 gm/ Sodium (Chloride) 100 mls @ 100 mls/hr IVPB Q8H [facility] PRN Reason: Protocol Last Admin: 04/15/18 07:46 Dose: 100 mls/hr Metoprolol Tartrate (Lopressor) 50 mg PO BID [facility] Last Admin: 04/15/18 09:16 Dose: 50 mg Pantoprazole Sodium (Protonix Ec Tab) 40 mg PO DAILY [facility] Last Admin: 04/15/18 09:16 Dose: 40 mg Tramadol HCl (Ultram) 50 mg PO Q12 PRN PRN Reason: pain Last Admin: 04/10/18 22:12 Dose: 50 mg - Labs Labs: 04/14/18 07:04 04/14/18 07:04
[2018-04-15 16:23] VITALS: BP 172/101; PULSE 91; TEMP 98.2; O2SAT 97
--- NOTE | 2018-04-15 17:22 | CP.PCM.PN ---
Subjective - Date & Time of Evaluation Date of Evaluation: 04/15/18 Time of Evaluation: 08:00 - Subjective Subjective: LESS FEVER LESS PAIN Objective - Vital Signs/Intake and Output Vital Signs (last 24 hours): Temp Pulse Resp BP Pulse Ox 98.2 F 91 H 20 172/101 H 97 04/15/18 16:08 04/15/18 16:08 04/15/18 16:08 04/15/18 16:08 04/15/18 16:08 Intake and Output: 04/15/18 04/15/18 06:59 18:59 Intake Total 250 Output Total 600 Balance -350 - Medications Medications: Current Medications Hydralazine HCl (Apresoline) 50 mg PO QID [facility] Last Admin: 04/15/18 13:37 Dose: 50 mg Meropenem 1 gm/ Sodium (Chloride) 100 mls @ 100 mls/hr IVPB Q8H ADRYAN PRN Reason: Protocol Last Admin: 04/15/18 07:46 Dose: 100 mls/hr Metoprolol Tartrate (Lopressor) 50 mg PO BID [facility] Last Admin: 04/15/18 09:16 Dose: 50 mg Pantoprazole Sodium (Protonix Ec Tab) 40 mg PO DAILY [facility] Last Admin: 04/15/18 09:16 Dose: 40 mg Tramadol HCl (Ultram) 50 mg PO Q12 PRN PRN Reason: pain Last Admin: 04/10/18 22:12 Dose: 50 mg - Labs Labs: 04/14/18 07:04 04/14/18 07:04 - Constitutional Appears: Non-toxic, Chronically Ill - Head Exam Head Exam: NORMOCEPHALIC - Eye Exam Eye Exam: PERRL - ENT Exam ENT Exam: Mucous Membranes Dry - Neck Exam Neck Exam: absent: Lymphadenopathy - Respiratory Exam Respiratory Exam: Decreased Breath Sounds - Cardiovascular Exam Cardiovascular Exam: REGULAR RHYTHM - GI/Abdominal Exam GI & Abdominal Exam: Distended - Rectal Exam Rectal Exam: Deferred - Exam Exam: NORMAL INSPECTION - Extremities Exam Extremities Exam: absent: Pedal Edema - Back Exam Back Exam: absent: CVA tenderness (L), CVA tenderness (R) - Neurological Exam Neurological Exam: Alert, Awake, Oriented x3 Neuro motor strength exam: Left Upper Extremity: 4, Right Upper Extremity: 4, Left Lower Extremity: 4, Right Lower Extremity: 4 - Psychiatric Exam Psychiatric exam: Depressed - Skin Skin Exam: Dry Assessment and Plan (1) Diverticulitis of colon Status: Acute (2) LLQ abdominal pain Status: Acute - Assessment and Plan (Free Text) Plan: CONT PO RX
--- NOTE | 2018-04-15 20:36 | CP.PCM.DIS ---
Provider - Provider Date of Admission: 04/10/18 14:53 Attending physician: Tamiko Truong MD Hospital Course - Lab Results Lab Results: Micro Results 04/10/18 15:00 Blood Blood Culture - Final NO GROWTH AFTER 5 DAYS 04/10/18 15:00 Blood Gram Stain - Final TEST NOT PERFORMED 04/10/18 14:30 Blood Blood Culture - Final NO GROWTH AFTER 5 DAYS 04/10/18 14:30 Blood Gram Stain - Final TEST NOT PERFORMED 04/10/18 13:26 Urine Urine Culture - Final No Growth (<1,000 CFU/ML) Most Recent Lab Values WBC 3.4 K/uL (4.8-10.8) L 04/14/18 07:04 RBC 4.36 Mil/uL (4.40-5.90) L 04/14/18 07:04 Hgb 12.1 g/dL (12.0-18.0) 04/14/18 07:04 Hct 35.8 % (35.0-51.0) 04/14/18 07:04 MCV 82.1 fL (80.0-94.0) 04/14/18 07:04 MCH 27.8 pg (27.0-31.0) 04/14/18 07:04 MCHC 33.8 g/dL (33.0-37.0) 04/14/18 07:04 RDW 14.3 % (11.5-14.5) 04/14/18 07:04 Plt Count 188 K/uL (130-400) 04/14/18 07:04 MPV 8.8 fL (7.2-11.7) 04/14/18 07:04 Neut % (Auto) 55.4 % (50.0-75.0) 04/14/18 07:04 Lymph % (Auto) 34.0 % (20.0-40.0) 04/14/18 07:04 [place] % (Auto) 6.5 % (0.0-10.0) 04/14/18 07:04 Eos % (Auto) 2.9 % (0.0-4.0) 04/14/18 07:04 Baso % (Auto) 1.2 % (0.0-2.0) 04/14/18 07:04 Neut # (Auto) 1.9 K/uL (1.8-7.0) 04/14/18 07:04 Lymph # (Auto) 1.1 K/uL (1.0-4.3) 04/14/18 07:04 [place] # (Auto) 0.2 K/uL (0.0-0.8) 04/14/18 07:04 Eos # (Auto) 0.1 K/uL (0.0-0.7) 04/14/18 07:04 Baso # (Auto) 0.0 K/uL (0.0-0.2) 04/14/18 07:04 Sodium 142 mmol/L (132-148) 04/14/18 07:04 Potassium 3.4 mmol/L (3.6-5.2) L 04/14/18 07:04 Chloride 107 mmol/L (98-107) 04/14/18 07:04 Carbon Dioxide 25 mmol/L (22-30) 04/14/18 07:04 Anion Gap 13 (10-20) 04/14/18 07:04 BUN 8 mg/dL (9-20) L 04/14/18 07:04 Creatinine 0.8 mg/dL (0.8-1.5) 04/14/18 07:04 Est GFR ( Amer) > 60 04/14/18 07:04 Est GFR (Non-Af Amer) > 60 04/14/18 07:04 Random Glucose 97 mg/dL (75-110) 04/14/18 07:04 Calcium 9.1 mg/dl (8.6-10.4) 04/14/18 07:04 Magnesium 1.7 mg/dL (1.6-2.3) 04/11/18 13:06 Total Bilirubin 0.3 mg/dL (0.2-1.3) 04/14/18 07:04 AST 23 U/L (17-59) 04/14/18 07:04 ALT 29 U/L (21-72) 04/14/18 07:04 Alkaline Phosphatase 131 U/L (38-126) H 04/14/18 07:04 Total Protein 5.9 g/dL (6.3-8.3) L 04/14/18 07:04 Albumin 3.4 g/dL (3.5-5.0) L 04/14/18 07:04 Globulin 2.5 gm/dL (2.2-3.9) 04/14/18 07:04 Albumin/Globulin Ratio 1.4 (1.0-2.1) 04/14/18 07:04 Lipase 59 U/L (23-300) 04/10/18 12:15 Urine Color Straw (YELLOW) 04/10/18 13:26 Urine Clarity Clear (Clear) 04/10/18 13:26 Urine pH 6.0 (5.0-8.0) 04/10/18 13:26 Ur Specific [place] 1.005 (1.003-1.030) 04/10/18 13:26 Urine Protein Negative mg/dL (NEGATIVE) 04/10/18 13:26 Urine Glucose (UA) Normal mg/dL (Normal) 04/10/18 13:26 Urine Ketones Negative mg/dL (NEGATIVE) 04/10/18 13:26 Urine Blood Negative (NEGATIVE) 04/10/18 13:26 Urine Nitrate Negative (NEGATIVE) 04/10/18 13:26 Urine Bilirubin Negative (NEGATIVE) 04/10/18 13:26 Urine Urobilinogen Normal mg/dL (0.2-1.0) 04/10/18 13:26 Ur Leukocyte Esterase Neg Ronel/uL (Negative) 04/10/18 13:26 Urine WBC (Auto) < 1 /hpf (0-5) 04/10/18 13:26 Ur Squamous Epith Cells < 1 /hpf (0-5) 04/10/18 13:26 Discharge Exam - Head Exam Head Exam: NORMOCEPHALIC Discharge Plan - Discharge Medications Prescriptions: hydrALAZINE [Apresoline] 50 mg PO QID #120 tab Ciprofloxacin [Cipro] 500 mg PO BID #28 tab metroNIDAZOLE [Flagyl] 250 mg PO TID #42 tab Saccharomyces Boulardi [Florastor] 250 mg PO BID #28 cap Metoprolol Tartrate [Lopressor] 50 mg PO BID #60 tab Pantoprazole [Protonix EC Tab] 40 mg PO DAILY #30 ect - Follow Up Plan Condition: STABLE Disposition: HOME/ ROUTINE Instructions: Ciprofloxacin (Systemic), Saccharomyces boulardii, Diverticulitis (DC), Metronidazole (Systemic), Hydralazine, Metoprolol, Pantoprazole, Constipation (DC), Acute Abdominal Pain (DC) Additional Instructions: -FOLLOW UP WITH DR. TRUONG IN HIS OFFICE WITHIN 5-7 DAYS OF DISCHARGE--CALL THE OFFICE TO MAKE AN APPOINTMENT. -FOLLOW UP WITH DR. SOUZA (STOMACH DOCTOR) AND DR. SHEPPARD AND/OR ISAAC ( ONCOLOGY) IN THEIR OFFICES WITHIN 5-7 DAYS OF DISCHARGE-- CALL THE OFFICE TO MAKE AN APPOINTMENT. -YOU HAVE BEEN PRESCRIBED 2 ANTIBIOTICS FOR YOUR STOMACH/INTESTINE INFECTION AND INFLAMMATION FOR 2 WEEKS PER YOUR DOCTORS; THE MEDICATIONS HAVE BEEN SENT TO YOUR PHARMACY--TAKE EXACTLY PRESCRIBED: 1) CIPRO 500 MG---TAKE ONE TABLET BY MOUTH TWICE A DAY (MORNING AND EVENING). 2) FLAGYL 250 MG ---TAKE ONE TABLET BY MOUTH THREE TIMES A DAY (MORNING, AFTERNOON AND EVENING). 3) FLORASTOR (VITAMIN FOR YOUR STOMACH/INTESTINES)---TAKE ONE TABLET BY MOUTH TWICE A DAY (MORNING AND EVENING). 4) PROTONIX 40 MG---FOR YOUR STOMACH---TAKE ONE TABLET BY MOUTH ONCE A DAY. 5) HYDRALAZINE 50 MG---FOR YOUR BLOOD PRESSURE---TAKE ONE TABLET BY MOUTH 4 TIMES A DAY (MORNING, AFTERNOON, EVENING, BEDTIME). 6) METOPROLOL 50 MG---FOR YOUR BLOOD PRESSURE---TAKE ONE TABLET BY MOUTH TWICE A DAY (MORNING AND EVENING). -PLEASE KEEP HYDRATED AND EAT A DIVERTICULOSIS FRIENDLY DIET. -IF YOU HAVE ANY FURTHER QUESTIONS OR CONCERNS, CONTACT DR. TRUONG'S OFFICE. - SEGUIMIENTO CON EL DR. TRUONG EN AWAD OFICINA EN EL PLAZO DE 5-7 MACARIO DE LA DESCARGA - LLAME A LA OFICINA PARA HACER RAJAT AVTAR. - SEGUIMIENTO CON EL DR. SOUZA (DOCTOR DE ESTMAGO) Y DR. SHEPPARD Y / O ISAAC (ONCOLOGY) EN BAL OFICINAS EN EL PLAZO DE 5-7 MACARIO DE DESCARGAS LLAME A LA OFICINA PARA HACER RAJAT AVTAR. -PATEL SIDO PRESCRITO 2 ANTIBITICOS PARA AWAD INFECCIN / INFLAMACIN DE ESTMAGO / INTESTINO POR 2 SEMANAS POR BAL MDICOS; LOS MEDICAMENTOS TIENEN SE BOBO ENVIADO A AWAD FARMACIA, TMELO EXACTAMENTE LUDY SE PRESCRIBE: 1) CIPRO 500 MG --- TOME RAJAT TABLETA POR LA BOCA DOS VECES AL DA (MAANA Y POR LA NOCHE). 2) FLAGYL 250 MG --- TOME RAJAT TABLETA POR BOCA [place] VECES AL DA (MAANA, POR LA TARDE Y POR LA NOCHE). 3) FLORASTOR (VITAMINA PARA AWAD ESTMAGO / INTESTINOS) --- TOME RAJAT TABLETA POR BOCA DOS VECES AL DA (POR LA MAANA Y POR LA NOCHE). 4) PROTONIX 40 MG --- PARA AWAD ESTMAGO --- TOME RAJAT TABLETA POR BOCA RAJAT VEZ AL DA. 5) HYDRALAZINE 50 MG --- PARA AWAD PRESIN ARTERIAL --- TOME RAJAT TABLETA POR BOCA 4 VECES AL DA (MAANA, TARDE, TARDE, TIEMPO DE CAMA). 6) METOPROLOL 50 MG --- PARA AWAD PRESIN ARTERIAL --- TOME RAJAT TABLETA POR BOCA DOS VECES AL DA (MAANA Y POR LA NOCHE). - POR FAVOR MANTNGASE HIDRATADO Y COMA RAJAT DIETA DE DIVERTICULOSIS AMISTOSA. -SI TIENE ALGUNA OTRA PREGUNTA O PREOCUPACIN, PNGASE EN CONTACTO CON EL DR. RADHA PURI. Referrals: Adrian Sheppard MD [Staff Provider] - Roger Ocasio MD [Staff Provider] - Livan Proctor Jr., MD [Staff Provider] - Tamiko Truong MD [Staff Provider] - Maria Isabel Patel MD [Staff Provider] - Lennox Souza MD [Staff Provider] -
== END 2018-04-15 16:40 | disposition home or self-care (01) | DRG 392 ==
LOC: C.ER 11:10 → C.9E 14:53 → C.3T 17:10
PROVIDERS: ADMIT Internal Medicine; ATTEND Internal Medicine
DX: K57.32 Diverticulitis of large intestine without perforation or abscess without bleeding (principal); K65.4 Sclerosing mesenteritis; C91.10 Chronic lymphocytic leukemia of B-cell type not having achieved remission; K59.00 Constipation, unspecified; D69.6 Thrombocytopenia, unspecified; E78.00 Pure hypercholesterolemia, unspecified; H40.9 Unspecified glaucoma; I10 Essential (primary) hypertension; N28.1 Cyst of kidney, acquired; Z79.899 Other long term (current) drug therapy; Z85.72 Personal history of non-Hodgkin lymphomas; Z90.49 Acquired absence of other specified parts of digestive tract

== ENCOUNTER 2018-05-11 15:38 | Emergency (ER) | payer MEDICARE, OTHER ==
[2018-05-11 16:11] VITALS: BMI 29.9
[2018-05-11 16:14] VITALS: PULSE 75
--- NOTE | 2018-05-11 16:25 | C.PDOC ---
History Of Present Illness 87 year old male is sent to ED by Dr. Patel for possible admission and evaluation of HTN. Patient complaints of headache that began 4 days ago. Patient was seen in office today for history of CLL and BP 200/120 in office. Patient also reports symptoms of right leg tingling sensation, and leg feels cold occasionally. Denies nausea, vomiting, dizziness, and vision changes. MD Dr. Camarillo at bedside. PMD: DR Cavanaugh Time Seen by Provider: 05/11/18 16:18 Chief Complaint (Nursing): High Blood Pressure History Per: Patient History/Exam Limitations: no limitations Onset/Duration Of Symptoms: Days (2) Current Symptoms Are (Timing): Still Present Exacerbating Factor(s): Pos: None Recent travel outside of the [place]: No Past Medical History Reviewed: Historical Data, Nursing Documentation, Vital Signs Vital Signs: Last Vital Signs Temp 97.7 F 05/11/18 16:11 Pulse 75 05/11/18 16:11 Resp 16 05/11/18 18:18 BP 160/89 H 05/11/18 18:18 Pulse Ox - Medical History PMH: Gall Bladder Disease, HTN, Hypercholesterolemia, Malignancy (Chronic lymphocytic leukemia) Surgical History: Cholecystectomy Family History: States: No Known Family Hx - Social History Hx Alcohol Use: No Hx Substance Use: No - Immunization History Hx Influenza Vaccination: Yes Hx Pneumococcal Vaccination: Yes Review Of Systems Constitutional: Negative for: Fever, Chills Eyes: Negative for: Vision Change Cardiovascular: Negative for: Palpitations, Light Headedness Respiratory: Negative for: Shortness of Breath Gastrointestinal: Negative for: Nausea, Vomiting, Diarrhea Skin: Negative for: Rash Neurological: Positive for: Weakness (Tingling sensation in right leg ), Headache. Negative for: Numbness Physical Exam - Physical Exam Appears: Non-toxic, No Acute Distress, Other Skin: Warm, Dry, No Diaphoretic, No Pale, No Rash Head: Atraumatic, Normacephalic, No Tenderness, No Swelling Eye(s): bilateral: Normal Inspection (Wears glasses, no nystagmus ), PERRL, EOMI Oral Mucosa: Moist Neck: Normal ROM, Supple Chest: Symmetrical, No Tenderness Cardiovascular: Rhythm Regular, No Murmur Respiratory: Normal Breath Sounds, No Decreased Breath Sounds, No Rales, No Rhonchi, No Wheezing Gastrointestinal/Abdominal: Soft, No Tenderness, No Distention Male Genital: Other (eyrthematous macular rash with lacy borders and white patches to inguinal area) Extremity: Bilateral: Atraumatic, No Pedal Edema, Normal Color And Temperature, Normal ROM Neurological/Psych: Oriented x3, Normal Speech, Normal Cranial Nerves, No Cerebellar Signs, Normal Motor, Normal Sensation, Normal Reflexes, Other (No focal deficits ) Gait: Steady ED Course And Treatment - Laboratory Results Result Diagrams: 05/11/18 16:50 05/11/18 16:50 Lab Interpretation: No Acute Changes ECG: Interpreted By Me, Viewed By Me ECG Rhythm: Sinus Rhythm, 1st Degree HB ECG Interpretation: Abnormal (compared to 04/10/18) Interpretation Of ECG: NS at 63 bpm with 1st degree block and LAD, ST-T changes in lateral leads. - CT Scan/US Head CT Other Rad Studies (CT/US): Read By Radiologist, Radiology Report Reviewed CT/US Interpretation: Date of service: 05/11/2018. PROCEDURE: CT HEAD WITHOUT CONTRAST. HISTORY: Headache, HTN. COMPARISON: Comparison made with prior CT scan brain dated 04/11/2018. TECHNIQUE: Axial computed tomography images were obtained through the head/brain without intravenous contrast. Radiation dose: Total exam DLP = 976.97 mGy-cm. This CT exam was performed using one or more of the following dose reduction techniques: Automated exposure control, adjustment of the mA and/or kV according to patient size, and/ or use of iterative reconstruction technique. FINDINGS: HEMORRHAGE: No intracranial hemorrhage. BRAIN: Mild chronic periventricular white matter ischemic changes. There also appear to be a few tiny scattered bilateral basal nuclei lacunar type infarcts. Note that the possibility of a small hyperacute infarct cannot be completely excluded on this exam. Clinical correlation recommended. No obvious parenchymal nor extra-axial mass or collection. Moderate generalized volume loss. VENTRICLES: No obstructive hydrocephalus. CALVARIUM: Calvarium intact. PARANASAL SINUSES: Unremarkable as visualized. No significant inflammatory changes. MASTOID AIR CELLS: Unremarkable as visualized. No inflammatory changes. OTHER FINDINGS: Postoperative changes right globe. . The the the the. IMPRESSION: No acute intracranial hemorrhage. Mild chronic white matter ischemic changes with a few suspected scattered bilateral basal nuclei lacunar type infarcts. Moderate generalized volume loss. Medical Decision Making Medical Decision Making: Impression: Hypertensive urgency Plan: Administered Reglan. Ordered CXR, EKG, blood work, and CT Head. Progress: Spoke with DR Camarillo who states to review diagnostics and call with any abnormalities; if no bleed and BP stable and patient asymptomatic can DC home and follow up in office. Head CT shows no intracranial hemorrhage. All diagnostics reviewed with no other acute findings, no evidence of renal injury or other injury. Orders placed for Labetalol and hydralazine. Patient remained alert and oriented in no distress, no neuro deficits. BP improving. Discussed all results with patient and family. The patient and family are comfortable going home. Patient instructed to follow up with their physician Disposition Counseled Patient/Family Regarding: Studies Performed, Diagnosis, Need For Followup - Disposition Referrals: Carlos Cavanaugh MD [Medical Doctor] - Tamiko Camarillo MD [Staff Provider] - Maria Isabel Patel MD [Staff Provider] - Disposition: HOSPITALIZED Disposition Time: 18:42 Condition: STABLE Additional Instructions: Sarah un seguimiento con srinivasan mdico primario o clnica en 2 gore para derrick evaluaci n adicional Regrese al departamento de emergencia en cualquier momento si los sntomas persisten o empeoran. Instructions: High Blood Pressure Emergencies Print Language: DANISH - POA Present On Arrival: None - Clinical Impression Clinical Impression: Hypertensive urgency, CLL (chronic lymphocytic leukemia) - PA / NEONATAL NURSE / Resident Statement MD/DO has reviewed & agrees with the documentation as recorded. - Scribe Statement The provider has reviewed the documentation as recorded by the Scribe Analia Lobo All medical record entries made by the Sohanibangeles were at my direction and personally dictated by me. I have reviewed the chart and agree that the record accurately reflects my personal performance of the history, physical exam, medical decision making, and the department course for this patient. I have also personally directed, reviewed, and agree with the discharge instructions and disposition.
[2018-05-11 17:00] LABS: EOS # 0.1 K/uL (0.0-0.7); HEMOGLOBIN 13.2 g/dL (12.0-18.0); MEAN CORPUSCULAR HGB CONC 33.8 g/dL (33.0-37.0); MONO # 0.5 K/uL (0.0-0.8); NRBC % 0.3 % (0.0-2.0); RED CELL DISTRIBUTION WIDTH 16.4 % (11.5-14.5)
[2018-05-11 17:12] LABS: ALB/GLOB RATIO 1.6 (1.0-2.1); ALBUMIN 4.2 g/dL (3.5-5.0); ALT/SGPT 31 U/L (21-72); AST/SGOT 20 U/L (17-59); BLOOD UREA NITROGEN 12 mg/dL (9-20); CALCIUM 9.4 mg/dl (8.6-10.4); GFR NON-AFRICAN AMERICAN > 60
[2018-05-11 17:15] LABS: PROTHROMBIN TIME 10.7 SECONDS (9.7-12.2)
[2018-05-11 17:20] LABS: BASO % 0.3 % (0.0-2.0); EOS % 0.7 % (0.0-4.0); LYMPH # 4.7 K/uL (1.0-4.3); LYMPH % 53.7 % (20.0-40.0); MEAN CELL VOLUME 81.1 fL (80.0-94.0); MEAN CORPUSCULAR HEMOGLOBIN 27.4 pg (27.0-31.0); MEAN PLATELET VOLUME 9.2 fL (7.2-11.7); NEUT # 3.5 K/uL (1.8-7.0); NEUT % 39.3 % (50.0-75.0); RBC 4.8 Mil/uL (4.40-5.90)
[2018-05-11 17:33] LABS: WHITE BLOOD COUNT 8.8 K/uL (4.8-10.8)
--- NOTE | 2018-05-11 17:34 | CT ---
Date of service: 05/11/2018 PROCEDURE: CT HEAD WITHOUT CONTRAST. HISTORY: Headache, HTN COMPARISON: Comparison made with prior CT scan brain dated 04/11/2018. TECHNIQUE: Axial computed tomography images were obtained through the head/brain without intravenous contrast. Radiation dose: Total exam DLP = 976.97 mGy-cm. This CT exam was performed using one or more of the following dose reduction techniques: Automated exposure control, adjustment of the mA and/or kV according to patient size, and/or use of iterative reconstruction technique. FINDINGS: HEMORRHAGE: No intracranial hemorrhage. BRAIN: Mild chronic periventricular white matter ischemic changes. There also appear to be a few tiny scattered bilateral basal nuclei lacunar type infarcts. Note that the possibility of a small hyperacute infarct cannot be completely excluded on this exam. Clinical correlation recommended. No obvious parenchymal nor extra-axial mass or collection. Moderate generalized volume loss. VENTRICLES: No obstructive hydrocephalus. CALVARIUM: Calvarium intact. PARANASAL SINUSES: Unremarkable as visualized. No significant inflammatory changes. MASTOID AIR CELLS: Unremarkable as visualized. No inflammatory changes. OTHER FINDINGS: Postoperative changes right globe. . The the the the IMPRESSION: No acute intracranial hemorrhage. Mild chronic white matter ischemic changes with a few suspected scattered bilateral basal nuclei lacunar type infarcts. Moderate generalized volume loss.
[2018-05-11] MEDS ORDERED: Labetalol 25mg/5ml Syringe IV STA (17:50)
--- NOTE | 2018-05-11 18:52 | RAD ---
HISTORY: Palpations COMPARISON: Obstructive series performed 01/26/18 TECHNIQUE: Chest, one view. FINDINGS: LUNGS: Mild pulmonary venous congestion. No focal consolidation. Please note that chest x-ray has limited sensitivity for the detection of pulmonary masses. PLEURA: No significant pleural effusion identified. No definite pneumothorax . CARDIOVASCULAR: Cardiomegaly. Ectatic aorta. Atherosclerotic calcifications. OSSEOUS STRUCTURES: Degenerative changes of the spine and shoulders. VISUALIZED UPPER ABDOMEN: Unremarkable. OTHER FINDINGS: None. IMPRESSION: Mild pulmonary venous congestion. Cardiomegaly. Ectatic aorta. Atherosclerotic calcifications.
[2018-05-11 19:03] VITALS: BP 128/78; RESP 17; TEMP 97.6; O2SAT 99
--- NOTE | 2018-05-12 17:30 | CARD ---
APPROVED REPORT Date of service: 05/11/2018 EKG Measurement Heart [id number] <Conclusion> Sinus rhythm with 1st degree AV block Left axis deviation Voltage criteria for left ventricular hypertrophy Nonspecific ST and T wave abnormality Abnormal ECG
== END 2018-05-11 19:00 | disposition home or self-care (01) ==
LOC: C.ER 15:38
DX: I16.0 Hypertensive urgency (principal); C91.10 Chronic lymphocytic leukemia of B-cell type not having achieved remission
CPT/HCPCS: 70450; 71045; 80053; 85025; 85610; 85730; 93005; 96374; 96375; 99285; J2765

== ENCOUNTER 2018-05-12 15:17 | Inpatient (IN) | payer MEDICARE, OTHER ==
[2018-05-12 15:17] VITALS: BMI 29.9
--- NOTE | 2018-05-12 17:33 | C.PDOC ---
History Of Present Illness 87 y/o male patient with history of CLL presents to the ED with high blood pressure and headaches starting yesterday. Patient was prescribed Imbruvica by Dr. Patel, Oncologist/Intermediate School Teacher. Patient is also taking Amlodipine and Hydralazine 50 mg (QID). Patient notes taking medications one hour [employer]. He denies chest pain, nausea, vomiting, diarrhea, back pain or shortness of breath. Time Seen by Provider: 05/12/18 16:52 Chief Complaint (Nursing): High Blood Pressure History Per: Patient History/Exam Limitations: no limitations Onset/Duration Of Symptoms: Days Current Symptoms Are (Timing): Still Present Associated Symptoms: Headache. denies: Chest Pain, Dyspnea, Dizziness Severity: Mild Pain Scale Rating Of: 3 Past Medical History Reviewed: Historical Data, Nursing Documentation, Vital Signs Vital Signs: Last Vital Signs Temp 98.4 F 05/12/18 15:44 Pulse 69 05/12/18 17:08 Resp 18 05/12/18 17:08 BP 182/91 H 05/12/18 17:08 Pulse Ox 98 05/12/18 18:48 - Medical History PMH: Gall Bladder Disease, HTN, Hypercholesterolemia, Malignancy (Chronic lymphocytic leukemia) Surgical History: Cholecystectomy Family History: States: No Known Family Hx - Social History Hx Tobacco Use: No Hx Alcohol Use: No Hx Substance Use: No - Immunization History Hx Influenza Vaccination: Yes Hx Pneumococcal Vaccination: Yes Review Of Systems Constitutional: Negative for: Fever, Chills Cardiovascular: Negative for: Chest Pain Respiratory: Negative for: Shortness of Breath Gastrointestinal: Negative for: Nausea, Vomiting, Abdominal Pain, Diarrhea Neurological: Positive for: Headache. Negative for: Weakness, Numbness, Dizziness Physical Exam - Physical Exam Additional Physical Exam Comments: Constitutional: No acute distress. Head: Normocephalic. Atraumatic. Eyes: PERRL. ENT: Moist mucous membranes. Neck: Supple. Cardiovascular: Regular rate. Radial pulse 2+ bilaterally. Chest: No tenderness. Respiratory: Clear to auscultation bilaterally. GI: Soft. Nontender. Nondistended. Back: No CVA tenderness. Musculoskeletal: No tenderness or swelling of extremities. Skin: No rash. Neurologic: Alert, no focal deficit. ED Course And Treatment - Laboratory Results Result Diagrams: 05/12/18 17:50 08/21/18 17:50 O2 Sat by Pulse Oximetry: 98 (RA) Pulse Ox Interpretation: Normal Medical Decision Making Medical Decision Making: Impression: 87 year old male patient with high blood pressure and headaches. Differential Diagnosis included but are not limited to: Rule out intracranial hemorrhage otherwise asymptomatic hypertension Plan: CT Heads Labs CT Head Results: IMPRESSION: No intracranial mass, hemorrhage or evidence of acute infarct. Mild chronic involutional change. CXR and EKG performed yesterday. Discussed case with Dr. Camarillo, patient with continued uncontrolled HTN and failed outpatient management. Dr. Camarillo accepts patient to his service. Disposition - Disposition Disposition: HOSPITALIZED Disposition Time: 18:51 Condition: GUARDED Forms: [employer] (Yakut) - Clinical Impression Clinical Impression: Severe uncontrolled hypertension - Scribe Statement The provider has reviewed the documentation as recorded by the Sohanibangeles Sanchez Provider Attestation: All medical record entries made by the Sohanibangeles were at my direction and personally dictated by me. I have reviewed the chart and agree that the record accurately reflects my personal performance of the history, physical exam, medical decision making, and the department course for this patient. I have also personally directed, reviewed, and agree with the discharge instructions and disposition.
[2018-05-12 17:54] LABS: BASO % 0.5 % (0.0-2.0); EOS % 0.6 % (0.0-4.0); LYMPH # 3.4 K/uL (1.0-4.3); MEAN CELL VOLUME 82.9 fL (80.0-94.0); MEAN CORPUSCULAR HEMOGLOBIN 27.6 pg (27.0-31.0); MEAN CORPUSCULAR HGB CONC 33.3 g/dL (33.0-37.0); MEAN PLATELET VOLUME 9.2 fL (7.2-11.7); MONO # 0.4 K/uL (0.0-0.8); MONO % 5.9 % (0.0-10.0); NEUT # 2.7 K/uL (1.8-7.0); NRBC % 0.5 % (0.0-2.0); RBC 4.69 Mil/uL (4.40-5.90); RED CELL DISTRIBUTION WIDTH 16.3 % (11.5-14.5); WHITE BLOOD COUNT 6.5 K/uL (4.8-10.8)
--- NOTE | 2018-05-12 18:10 | CT ---
Date of service: 05/12/2018 PROCEDURE: CT HEAD WITHOUT CONTRAST. HISTORY: headache, HTN COMPARISON: 05/11/2018 TECHNIQUE: Axial computed tomography images were obtained through the head/brain without intravenous contrast. Radiation dose: Total exam DLP = 893.73 mGy-cm. This CT exam was performed using one or more of the following dose reduction techniques: Automated exposure control, adjustment of the mA and/or kV according to patient size, and/or use of iterative reconstruction technique. FINDINGS: HEMORRHAGE: No intracranial hemorrhage. BRAIN: No mass effect or edema. Mild age-appropriate cerebral atrophy. Mild chronic periventricular white matter ischemic change. No evidence of acute infarct. VENTRICLES: Unremarkable. No hydrocephalus. CALVARIUM: Unremarkable. PARANASAL SINUSES: Unremarkable as visualized. No significant inflammatory changes. MASTOID AIR CELLS: Unremarkable as visualized. No inflammatory changes. OTHER FINDINGS: None. IMPRESSION: No intracranial mass, hemorrhage or evidence of acute infarct. Mild chronic involutional change.
[2018-05-12 18:12] LABS: ALB/GLOB RATIO 1.6 (1.0-2.1); ALBUMIN 4.2 g/dL (3.5-5.0); ALT/SGPT 26 U/L (21-72); AST/SGOT 19 U/L (17-59); BLOOD UREA NITROGEN 11 mg/dL (9-20); CALCIUM 9.3 mg/dl (8.6-10.4); GFR NON-AFRICAN AMERICAN > 60
--- NOTE | 2018-05-12 20:59 | CP.PCM.HP ---
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 But complication of the medication including hypertension, intracranial bleeding. Patient went to see oncologist to yesterday and today, as combining of increasing headache, both time patient was sent to the emergency room with uncontrolled hypertension and headache. In the emergency room patient was again evaluated today, had a CAT scan, showing no acute bleed. But the blood pressure still continued to be elevated, combining of severe headache, headache holocephalic, associated with this some nausea, sometimes having difficult time in walking Past medical history significant for hypertension, CLL, neutropenia and also significant abdominal lymphadenopathy. Allergies: No known drug allergy Personal history non-smoker nonalcoholic Surgical history none Family history noncontributory Review of system: Complaining of some headache, also complaining of some nausea, abdominal pain, left lower quadrant pain noted, did not have any bowel movements. No fever noted, chills negative Poor intake noted But appetite is good On examination: Vital signs noted. Mild tachycardia noted, low-grade fever noted. Blood pressure slightly elevated Chest bilateral good air entry Regular heart sounds Abdominal tenderness in the left lower quadrant noted. Edema negative 05/12/18 17:50 05/12/18 17:50 Assessment and recommendation: CAT scan of the headis negative Assessment and recommendation: 86-year-old male with a history of CLL, hypertension with the neutropenia and abdominal lymphadenopathy Admitted now with acute hypertension. Associated with a headache. Underlying acute migraine cannot be ruled out. Secondary to medication competition. Less likely bleeding We'll start the patient on oral antihypertensive. Neurological evaluation. DVT GI prophylaxis continue to monitor the blood pressure and will follow the patient Present on Admission - Present on Admission Any Indicators Present on Admission: No History of DVT/PE: No History of Uncontrolled Diabetes: No Urinary Catheter: No Decubitus Ulcer Present: No Past Patient History - Tetanus Immunizations Tetanus Immunization: Unknown - Past Medical History & Family History Past Medical History?: Yes - Past Social History Smoking Status: Never Smoked - CARDIAC Hx Hypercholesterolemia: Yes Hx Hypertension: Yes - PULMONARY Hx Respiratory Disorders: No - NEUROLOGICAL Hx Neurological Disorder: No - HEENT Hx HEENT Problems: Yes Hx Glaucoma: Yes - RENAL Hx Chronic Kidney Disease: No - ENDOCRINE/METABOLIC Hx Endocrine Disorders: No - HEMATOLOGICAL/ONCOLOGICAL Hx Human Immunodeficiency Virus (HIV): No - INTEGUMENTARY Hx Dermatological Problems: No - MUSCULOSKELETAL/RHEUMATOLOGICAL Hx Musculoskeletal Disorders: No Hx Falls: No - GASTROINTESTINAL Hx Gall Bladder Disease: Yes - GENITOURINARY/GYNECOLOGICAL Hx Genitourinary Disorders: No - PSYCHIATRIC Hx Substance Use: No - SURGICAL HISTORY Hx Cholecystectomy: Yes - ANESTHESIA Hx Anesthesia: Yes Hx Anesthesia Reactions: No Hx Malignant Hyperthermia: No Meds Home Medications: Home Medication List Medication Instructions Recorded Confirmed Type Metoprolol Succinate XL [Toprol XL] 100 mg PO DAILY 30 Days tab 05/15/18 Rx amLODIPine [Norvasc] 10 mg PO DAILY 30 Days tab 05/15/18 Rx hydrALAZINE [Apresoline] 25 mg PO TID 90 Days tab 05/15/18 Rx Allergies/Adverse Reactions: Allergies Allergy/AdvReac Type Severity Reaction Status Date / Time No Known Allergies Allergy Verified 05/12/18 15:46 Results - Vital Signs Recent Vital Signs: Last Vital Signs Temp 98.4 F 05/12/18 15:44 Pulse 67 05/12/18 20:35 Resp 16 05/12/18 20:35 BP 160/83 H 05/12/18 20:35 Pulse Ox 96 05/12/18 20:35 - Labs Result Diagrams: 05/12/18 17:50 05/12/18 17:50 Labs: Laboratory Results - last 24 hr 05/12/18 05/12/18 17:50 17:50 WBC 6.5 RBC 4.69 Hgb 13.0 Hct 38.9 MCV 82.9 MCH 27.6 MCHC 33.3 RDW 16.3 H Plt Count 106 L MPV 9.2 Neut % (Auto) 41.0 L Lymph % (Auto) 52.0 H [place] % (Auto) 5.9 Eos % (Auto) 0.6 Baso % (Auto) 0.5 Neut # (Auto) 2.7 Lymph # (Auto) 3.4 [place] # (Auto) 0.4 Eos # (Auto) 0.0 Baso # (Auto) 0.0 Differential Comment Sodium 141 Potassium 3.8 Chloride 105 Carbon Dioxide 26 Anion Gap 14 BUN 11 Creatinine 0.8 Est GFR ( Amer) > 60 Est GFR (Non-Af Amer) > 60 Random Glucose 99 Calcium 9.3 Total Bilirubin 0.4 AST 19 ALT 26 Alkaline Phosphatase 161 H Total Protein 6.8 Albumin 4.2 Globulin 2.6 Albumin/Globulin Ratio 1.6
[2018-05-13 00:33] VITALS: RESP 20
--- NOTE | 2018-05-13 07:19 | CP.PCM.CON ---
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 - PRE EXISTING MRI/CAROTID/BLOOD WORK UP WILL FOLLOW THANKS Past Patient History - Tetanus Immunizations Tetanus Immunization: Unknown - Past Medical History & Family History Past Medical History?: Yes - Past Social History Smoking Status: Never Smoked - CARDIAC Hx Hypercholesterolemia: Yes Hx Hypertension: Yes - PULMONARY Hx Respiratory Disorders: No - NEUROLOGICAL Hx Neurological Disorder: No - HEENT Hx HEENT Problems: Yes Hx Glaucoma: Yes - RENAL Hx Chronic Kidney Disease: No - ENDOCRINE/METABOLIC Hx Endocrine Disorders: No - HEMATOLOGICAL/ONCOLOGICAL Hx Human Immunodeficiency Virus (HIV): No - INTEGUMENTARY Hx Dermatological Problems: No - MUSCULOSKELETAL/RHEUMATOLOGICAL Hx Musculoskeletal Disorders: No Hx Falls: No - GASTROINTESTINAL Hx Gall Bladder Disease: Yes - GENITOURINARY/GYNECOLOGICAL Hx Genitourinary Disorders: No - PSYCHIATRIC Hx Substance Use: No - SURGICAL HISTORY Hx Cholecystectomy: Yes - ANESTHESIA Hx Anesthesia: Yes Hx Anesthesia Reactions: No Hx Malignant Hyperthermia: No Meds Allergies/Adverse Reactions: Allergies Allergy/AdvReac Type Severity Reaction Status Date / Time No Known Allergies Allergy Verified 05/12/18 15:46 - Medications Medications: Current Medications Acetaminophen (Tylenol 325mg Tab) 650 mg PO Q6 PRN PRN Reason: Headache Last Admin: 05/12/18 23:53 Dose: 650 mg Allopurinol (Zyloprim) 100 mg PO DAILY [facility] Amlodipine Besylate (Norvasc) 10 mg PO DAILY [facility] Hydralazine HCl (Apresoline) 10 mg PO QID [facility] Last Admin: 05/12/18 22:57 Dose: 10 mg Metoprolol Tartrate (Lopressor) 50 mg PO BID [facility] Last Admin: 05/12/18 21:40 Dose: 50 mg Pantoprazole Sodium (Protonix Ec Tab) 40 mg PO DAILY [facility] Results - Vital Signs Recent Vital Signs: Last Vital Signs Temp 97.5 F L 05/13/18 00:00 Pulse 59 L 05/13/18 00:00 Resp 20 05/13/18 00:00 BP 178/91 H 05/13/18 00:00 Pulse Ox 95 05/13/18 00:00 - Labs Result Diagrams: 05/12/18 17:50 05/12/18 17:50 Labs: Laboratory Results - last 24 hr 05/12/18 05/12/18 17:50 17:50 WBC 6.5 RBC 4.69 Hgb 13.0 Hct 38.9 MCV 82.9 MCH 27.6 MCHC 33.3 RDW 16.3 H Plt Count 106 L MPV 9.2 Neut % (Auto) 41.0 L Lymph % (Auto) 52.0 H [place] % (Auto) 5.9 Eos % (Auto) 0.6 Baso % (Auto) 0.5 Neut # (Auto) 2.7 Lymph # (Auto) 3.4 [place] # (Auto) 0.4 Eos # (Auto) 0.0 Baso # (Auto) 0.0 Differential Comment Sodium 141 Potassium 3.8 Chloride 105 Carbon Dioxide 26 Anion Gap 14 BUN 11 Creatinine 0.8 Est GFR ( Amer) > 60 Est GFR (Non-Af Amer) > 60 Random Glucose 99 Calcium 9.3 Total Bilirubin 0.4 AST 19 ALT 26 Alkaline Phosphatase 161 H Total Protein 6.8 Albumin 4.2 Globulin 2.6 Albumin/Globulin Ratio 1.6
[2018-05-13] MEDS ORDERED: Iodixanol 320 MG/ML 100 ML BOTTLE IV ONE (09:02)
[2018-05-13] MEDS: Pantoprazole 40 mg EC Tab PO SCH (10:28)
[2018-05-13 13:04] LABS: FREE T4 1.43 ng/dL (0.78-2.19)
--- NOTE | 2018-05-13 13:51 | CT ---
Date of service: 05/13/2018 PROCEDURE: CT Abdomen and Pelvis with contrast HISTORY: R/O Adrenal Mass COMPARISON: CT abdomen and pelvis without contrast performed 05/08/18 TECHNIQUE: Contrast dose: 100 cc visipaque 320 Radiation dose: Total exam DLP = 579.92 mGy-cm. This CT exam was performed using one or more of the following dose reduction techniques: Automated exposure control, adjustment of the mA and/or kV according to patient size, and/or use of iterative reconstruction technique. FINDINGS: LOWER THORAX: Bibasilar atelectasis. Small hiatal hernia/distal esophageal wall thickening and gastroesophageal reflux. Partially imaged cardiomegaly. Coronary artery calcifications. LIVER: Several too small to characterize hepatic hypodensities; statistically likely cysts. GALLBLADDER AND BILE DUCTS: Cholecystectomy. PANCREAS: Unremarkable. SPLEEN: Borderline splenomegaly. ADRENALS: Indeterminate 10 mm heterogeneous left adrenal gland mass appears solid. Right adrenal gland appears unremarkable. KIDNEYS AND URETERS: Numerous low-density renal lesions bilaterally favored to represent cysts, largest resides within left upper pole measuring approximately 5.5 cm. Indeterminate hyperdense lesion exophytic at the left lower pole measures approximately 18 mm and 20 Hounsfield units. VASCULATURE: No aortic aneurysm. Dense atherosclerotic calcifications. Small filling defect left vessel (series 3, image 135) within the left internal iliac artery, uncertain etiology, possibly atypical atherosclerotic plaque. BOWEL: Stomach is nondistended. Lack of oral contrast limits evaluation for bowel pathology. Bowel loops appear within normal limits of caliber without evidence of obstruction. Small bowel wall thickening may reflect enteritis. Extensive diverticulosis without CT evidence of acute diverticulitis. APPENDIX: The appendix appears within normal limits of caliber. No secondary signs of acute appendicitis. PERITONEUM: No significant free fluid. No definite free air. LYMPH NODES: Mesenteric inflammatory stranding ("sharif" mesentery) and enlarged mesenteric lymph nodes measuring up to approximately 18 mm in short axis. Appearance is nonspecific however differential diagnosis include but not limited to mesenteric panniculitis, neoplasm such as mesenteric lymphoma, infectious and or inflammatory etiologies. BLADDER: Thick-walled under distended urinary bladder. REPRODUCTIVE: Prostate gland measures approximately 3.5 x 3.9 cm. BONES: Osseous demineralization. Multilevel degenerative changes. OTHER FINDINGS: None. IMPRESSION: Mesenteric inflammatory stranding ("sharif" mesentery) and enlarged mesenteric lymph nodes measuring up to approximately 18 mm in short axis. Appearance is nonspecific however differential diagnosis include but not limited to mesenteric panniculitis, neoplasm such as mesenteric lymphoma, infectious and or inflammatory etiologies. Indeterminate 10 mm heterogeneous left adrenal gland mass appears solid. Recommend dedicated cross-sectional imaging for further evaluation. Numerous low-density renal lesions bilaterally favored to represent cysts, largest resides within left upper pole measuring approximately 5.5 cm. Indeterminate hyperdense lesion exophytic at the left lower pole measures approximately 18 mm and 20 Hounsfield units. Recommend dedicated cross-sectional imaging for further characterization Several too small to characterize hepatic hypodensities; statistically likely cysts. Small bowel wall thickening may reflect enteritis. Correlate clinically. Small filling defect left vessel (series 3, image 135) within the left internal iliac artery, uncertain etiology, possibly atypical atherosclerotic plaque. Additional findings as above.
[2018-05-13] MEDS ORDERED: Gadodiamide 287 mg/ml 20 ml IV ONE (16:11)
--- NOTE | 2018-05-13 17:40 | MRI ---
Date of service: 05/13/2018 PROCEDURE: MRI BRAIN WITH AND WITHOUT CONTRAST HISTORY: headache with uncontrolled HTN and Hx CLL COMPARISON: Noncontrast head CT from 05/12/2018. TECHNIQUE: Multiplanar, multisequence MR images of the brain were obtained with and without intravenous contrast enhancement. 16 mL Omniscan was injected intravenously. FINDINGS: HEMORRHAGE: None DWI: No evidence of an acute or early subacute infarction. BRAIN PARENCHYMA: There are mild chronic microangiopathic changes. There is no mass, mass effect or abnormal extra-axial fluid collection. There is no territorial infarction. The midline sagittal structures are normal. ENHANCEMENT: No abnormal intracranial enhancement. VENTRICLES: There is mild age-related global parenchymal volume loss and proportionate enlargement of the ventricles and cortical sulci. CRANIUM: There is normal bone marrow signal pattern. ORBITS: Grossly unremarkable. PARANASAL SINUSES/MASTOIDS: Predominantly clear. VASCULAR SYSTEM: There are normal signal voids in the larger intracranial arteries. OTHER FINDINGS: None . IMPRESSION: No acute intracranial abnormality. Mild chronic microangiopathic changes and mild age-related global parenchymal volume loss.
--- NOTE | 2018-05-13 18:01 | CON ---
Copied To: Frankie Kelley MD Attending MD: Tamiko Camarillo MD DATE: 05/13/2018 LOCATION: The patient is in room number 554. REASON FOR THE CONSULTATION: Headache. CHIEF COMPLAINT: The patient was brought into [facility] with a history of recurrent headache and carrying the history of intracerebral bleed in the past. From neurological point of view, I was called into evaluate him for further management. HISTORY OF PRESENT ILLNESS: Mr. Julian Lopes is an 87-year-old right-handed [place]-speaking male presenting with about a month history of headache, which is located over the vertex region associating with left anterior aspect of his neck region pain. This pain is episodic in nature, not associating with nausea or vomiting or losing his balance. He also claims that he has no vision in his right eye. No history of losing balance. No history of bulbar dysfunction. Because of the recurrent headache with history of intracerebral bleed in the past, the patient was advised to come to the hospital for further evaluation. PAST MEDICAL HISTORY: Hypertension, CLL, neutropenia, and lymphadenopathy. ALLERGIES: NO KNOWN ALLERGIES. PERSONAL HISTORY: Denies smoking or alcohol use. FAMILY HISTORY Noncontributory. REVIEW OF SYSTEMS: A 12-point system being reviewed. From Neuro, recurrent headache. MEDICATIONS: Lopressor, Norvasc, Protonix, Tylenol, and Zyloprim. PHYSICAL EXAMINATION: VITAL SIGNS: Blood pressure 178/91 with mean arterial pressure of 120, respiratory rate 18, temperature 97.5 with a pulse rate of 59 sinus. NECK: Supple. No tenderness noted. No carotid bruit. HEART: Sounds regular. CHEST: Fair air entry. EXTREMITIES: No edema in legs. NEUROLOGIC EXAMINATION: Mental status examination, he is awake, alert and oriented to person, place and time. He is communicable only in [place]. He follows two-step command, significant right and left confusion. He could able to follow three-step commands. Speech is fluent. Cranial nerve examination, visual field because of the poor vision could not able to localize the problem. 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 Left side, he respond to visual threat. No facial sensory deficit. Significant facial asymmetry manifesting as flattening of the right nasolabial fold. Right eye is esotropic. Bulbar functions are normal. Tongue is moist. Hearing is normal. Motor examination, outstretched hand with eyes closed, mild sensory tremor. Tone is normal. Deep tendon reflexes, biceps, brachialis, and triceps absent, right knee 3+, left knee 1+. Right ankle 1+ and left ankle absent. Plantars are upgoing on both sides. Sensory examination, mild distal sensorimotor neuropathy. No cortical sensory loss. Coordination: [id number]-[id number] test is intact. Gait: Broad based gait. Romberg sign negative. Tandem is poor. WORKUP: CT of the head reviewed and reported also negative of acute pathology. BLOOD WORKUP: WBC 6.5, hemoglobin 13, hematocrit 38.9, platelet 106. Sodium 141, potassium 3.8, chloride 105, bicarbonate 26, BUN 11, creatinine 0.8, GFR more than 60, glucose 99, bilirubin 0.4, AST 19, ALT 26, alkaline phosphatase 161. CONCLUSION: Mr. Julian Lopes being presenting with as per neurological examination, recurrent headache with jaw pain and neck pain associating with esotropia of the right eye, hyperreflexia on the right side with bilateral Babinski sign suggestive of multifocal pathology. Probably secondary to ischemic process versus metastatic process. Considering his headache related to his blood pressure, this could be hypertensive crisis as well. His examination also showed a bilateral distal symmetric sensorimotor neuropathy, which is probably preexisting related to his chemotherapy. RECOMMENDATIONS: 1. MRI of the brain with and without gadolinium to rule out vascular versus space-occupying lesion. 2. Abdominal CAT scan to rule out any adrenal mass to rule out pheochromocytoma because of uncontrolled hypertension with headache. 3. The patient also showed evidence of vasculitis because of headache as well as jaw pain; however, no temporal artery tenderness, but needs blood workup to rule out giant cell arteritis. 4. Carotid Doppler to rule out any stenosis. 5. Blood workup to rule out any metabolic or inflammatory or infectious process for his headache. 6. Continue the present management. The patient will be followed closely with you. Frankie Kelley MD [facility]
--- NOTE | 2018-05-13 18:45 | CP.PCM.CON ---
History of Present Illness - History of Present Illness History of Present Illness: 87 yo man with history of chronic lymphocytic leukemia, presented with a WBC count of 100K, diffuse lymphadnopathy, bulky disease in the chest and abdomen, s /p chemo(complicated by neutropenia), presently on PO Ibrutinib, tolerating fairly well with very good response in the WBC and all lymph nodes. He has been having elevated BP on the ibrutinib with new onset headaches, being seen by neuro. CAT scan of the head is neg for bleed Past Patient History - Tetanus Immunizations Tetanus Immunization: Unknown - Past Medical History & Family History Past Medical History?: Yes - Past Social History Smoking Status: Never Smoked - CARDIAC Hx Hypercholesterolemia: Yes Hx Hypertension: Yes - PULMONARY Hx Respiratory Disorders: No - NEUROLOGICAL Hx Neurological Disorder: No - HEENT Hx HEENT Problems: Yes Hx Glaucoma: Yes - RENAL Hx Chronic Kidney Disease: No - ENDOCRINE/METABOLIC Hx Endocrine Disorders: No - HEMATOLOGICAL/ONCOLOGICAL Hx Human Immunodeficiency Virus (HIV): No - INTEGUMENTARY Hx Dermatological Problems: No - MUSCULOSKELETAL/RHEUMATOLOGICAL Hx Musculoskeletal Disorders: No Hx Falls: No - GASTROINTESTINAL Hx Gall Bladder Disease: Yes - GENITOURINARY/GYNECOLOGICAL Hx Genitourinary Disorders: No - PSYCHIATRIC Hx Substance Use: No - SURGICAL HISTORY Hx Cholecystectomy: Yes - ANESTHESIA Hx Anesthesia: Yes Hx Anesthesia Reactions: No Hx Malignant Hyperthermia: No Meds Allergies/Adverse Reactions: Allergies Allergy/AdvReac Type Severity Reaction Status Date / Time No Known Allergies Allergy Verified 05/12/18 15:46 - Medications Medications: Current Medications Acetaminophen (Tylenol 325mg Tab) 650 mg PO Q6 PRN PRN Reason: Headache Last Admin: 05/13/18 12:39 Dose: 650 mg Allopurinol (Zyloprim) 100 mg PO DAILY [facility] Last Admin: 05/13/18 10:28 Dose: 100 mg Amlodipine Besylate (Norvasc) 10 mg PO DAILY [facility] Last Admin: 05/13/18 10:28 Dose: 10 mg Hydralazine HCl (Apresoline) 10 mg PO QID [facility] Last Admin: 05/13/18 17:19 Dose: 10 mg Metoprolol Tartrate (Lopressor) 50 mg PO BID [facility] Last Admin: 05/13/18 17:19 Dose: 50 mg Pantoprazole Sodium (Protonix Ec Tab) 40 mg PO DAILY [facility] Last Admin: 05/13/18 10:28 Dose: 40 mg Results - Vital Signs Recent Vital Signs: Last Vital Signs Temp 97.8 F 05/13/18 16:00 Pulse 65 05/13/18 16:00 Resp 20 05/13/18 16:00 BP 161/89 H 05/13/18 16:00 Pulse Ox 97 05/13/18 16:00 - Labs Result Diagrams: 05/12/18 17:50 05/12/18 17:50 Labs: Laboratory Results - last 24 hr 05/12/18 05/13/18 05/13/18 17:50 12:08 12:08 WBC 6.5 RBC 4.69 Hgb 13.0 Hct 38.9 MCV 82.9 MCH 27.6 MCHC 33.3 RDW 16.3 H Plt Count 106 L MPV 9.2 Neut % (Auto) 41.0 L Lymph % (Auto) 52.0 H [place] % (Auto) 5.9 Eos % (Auto) 0.6 Baso % (Auto) 0.5 Neut # (Auto) 2.7 Lymph # (Auto) 3.4 [place] # (Auto) 0.4 Eos # (Auto) 0.0 Baso # (Auto) 0.0 Differential Comment ESR 10 Hemoglobin A1c C-Reactive Protein < 5.00 Homocysteine 9.3 Free T4 TSH 3rd Generation 1.31 RPR 05/13/18 05/13/18 05/13/18 12:08 12:08 12:08 WBC RBC Hgb Hct MCV MCH MCHC RDW Plt Count MPV Neut % (Auto) Lymph % (Auto) [place] % (Auto) Eos % (Auto) Baso % (Auto) Neut # (Auto) Lymph # (Auto) [place] # (Auto) Eos # (Auto) Baso # (Auto) Differential Comment ESR Hemoglobin A1c 5.8 C-Reactive Protein Homocysteine Free T4 1.43 TSH 3rd Generation 1.32 RPR Nonreactive Assessment & Plan (1) Chronic lymphocytic leukemia (CLL), B-cell Assessment and Plan: CLL, 17p deletion, on PO Imbruvica with excellent response in WBC couint and intraabdominal lymphadenopathy. Elevated BP secondary to it. Currently BP in good control,headaches persist, will decrease Imbruvica dose as outpatient, currently on hold Status: Acute
[2018-05-13] MEDS: Zinc Oxide Topical 30 gm Tube TOP SCH (22:16)
--- NOTE | 2018-05-13 23:46 | CARD ---
APPROVED REPORT Date of service: 05/12/2018 EKG Measurement Heart [id number] <Conclusion> Sinus rhythm with 1st degree AV block Left axis deviation Incomplete right bundle branch block Voltage criteria for left ventricular hypertrophy Nonspecific T wave abnormality Abnormal ECG
[2018-05-14] MEDS: Pantoprazole 40 mg EC Tab PO SCH (09:48)
[2018-05-14] MEDS: Zinc Oxide Topical 30 gm Tube TOP SCH ×2 (09:48→17:37)
--- NOTE | 2018-05-15 06:23 | PN ---
Copied To: Frankie Kelley MD Attending MD: Frankie Kelley MD DATE: 05/14/2018 TIME OF EVALUATION: 7 a.m. NEUROLOGICAL PROBLEM: Headache related to possible accelerated hypertension. PHYSICAL EXAMINATION: VITAL SIGNS: Blood pressure 158/90 with a mean arterial pressure of 112, respiratory rate 18, pulse rate 69 sinus with a temperature of 92.2 degrees Fahrenheit. GENERAL: The patient is more awake, alert, oriented to person, place, and time. The patient slept good. He does not have a headache at present. He did have a headache yesterday, which was subsided with medication. His examination, which is not changed to compare with the yesterday's exam. His workup, MRI of the brain showed periventricular microangiopathic changes consistent with hypertensive complication manifesting with a small vessel disease. CT of the abdomen and pelvis showed an enlarged mesenteric lymph node and a 10 mm heterogenous left renal gland mass appears to be solid. There are numerous low density renal lesions bilaterally favored to represent cyst. Several too small characteristic hepatic hypodensities also suggestive of cyst. Blood workup recommended for pheochromocytoma is still pending. His RPR is nonreactive. TSH is 1.32. Sed rate 10. The patient continued to be followed by me and in the meantime, a workup for pheochromocytoma is on progress. Keep the blood pressure well in control with mean arterial pressure of around 100. The patient can be benefited with symptomatic relief with NSAID for his headache. Frankie Kelley MD
--- NOTE | 2018-05-15 08:28 | PN ---
Copied To: Frankie Kelley MD Attending MD: Frankie Kelley MD DATE: 05/15/2018 TIME OF EVALUATION: 06:55 a.m. NEUROLOGICAL PROBLEM: Headache, related to iatrogenic versus accelerated hypertension. The patient declines for the last two days, no headache. However, mild headache last night. She slept good. With his current management, the patient's headache is stable. His current vital signs: Blood pressure 164/92 with mean arterial pressure of 116, respiratory rate 18, pulse rate 69 sinus. The patient examination, which is unchanged to compare with my previous exam. The patient is evaluated by Dr. Patel. Her consultation is appreciated. His headache is probably related to chemotherapy as well. His workup is on progress because of the adrenal mass, rule out pheochromocytoma. Blood workup is still pending for the same. 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 Urine collection is under progress for homovanillic acid. Continue the present management. The patient will be followed closely with you. Frankie Kelley MD
[2018-05-15] MEDS: Zinc Oxide Topical 30 gm Tube TOP SCH (09:39)
[2018-05-15] MEDS: Pantoprazole 40 mg EC Tab PO SCH (09:40)
--- NOTE | 2018-05-15 15:11 | CP.PCM.PN ---
Subjective - Date & Time of Evaluation Date of Evaluation: 05/15/18 Time of Evaluation: 15:11 - Subjective Subjective: PATIENT WAS ADMITTED FOR UNCONTROLLED HTN DENIES CHEST PAIN / SOB / BLURRED VISION NO SIGN OF DISTRESS NOTED Objective - Vital Signs/Intake and Output Vital Signs (last 24 hours): Temp Pulse Resp BP Pulse Ox 97.6 F 64 20 123/73 98 05/15/18 07:32 05/15/18 13:21 05/15/18 07:32 05/15/18 13:21 05/15/18 07:32 Intake and Output: 05/15/18 05/15/18 06:59 18:59 Intake Total 300 Output Total 300 Balance 0 - Medications Medications: Current Medications Acetaminophen (Tylenol 325mg Tab) 650 mg PO Q6 PRN PRN Reason: Headache Last Admin: 05/14/18 13:05 Dose: 650 mg Allopurinol (Zyloprim) 100 mg PO DAILY [facility] Last Admin: 05/15/18 09:40 Dose: 100 mg Amlodipine Besylate (Norvasc) 10 mg PO DAILY [facility] Last Admin: 05/15/18 09:40 Dose: 10 mg Hydralazine HCl (Apresoline) 25 mg PO QID [facility] Last Admin: 05/15/18 13:21 Dose: 25 mg Metoprolol Tartrate (Lopressor) 50 mg PO BID [facility] Last Admin: 05/15/18 09:40 Dose: 50 mg Pantoprazole Sodium (Protonix Ec Tab) 40 mg PO DAILY [facility] Last Admin: 05/15/18 09:40 Dose: 40 mg Petrolatum (Desitin Original) 0 gm TOP BID [facility] Last Admin: 05/15/18 09:39 Dose: 1 applic - Labs Labs: 05/12/18 17:50 05/12/18 17:50 Assessment and Plan - Assessment and Plan (Free Text) Assessment: PATIENT SEEN AND EXAMINED AT THE BEDSIDE LUNG SOUND CLEAR GARRETT He has been having elevated BP on the ibrutinib with new onset headaches, being seen by neuro. CAT scan of the head is neg for bleed DISCUSS WITH DR WHARTON AND DR TRUONG WHO CLEAR FOR DC FOLLOW UP WITH DR TRUONG IN HIS OFFICE NEXT WEEK ---CALL FOR APPOINTMENT FOLLOW UP WITH DR WHARTON AT HIS OFFICE NEXT WEEK ---CALL FOR APPOINTMENT CONTINUE HOME MEDICATION NEW PRESCRIPTION GIVEN TROPOL XL 100 MG PO DAILY HYDRALIZYNE 25 MG PO TID NORVASC 10 MG PO DAILY STOP TAKING METORPOLOL 50 MG / NORVASC 5MG ACTIVITY TOLERATED CALL DR TRUONG OR GO TO THE EMERGENCY ROOM IF SYMPTOM RETURN OR WORSENING DISCUSS WITH PATIENT WHO AGREE AND VERABLIZED UNDERSTANDING
[2018-05-15 15:53] VITALS: BP 136/80; PULSE 70; TEMP 98.1; O2SAT 96
[2018-05-17 12:41] LABS: TOTAL VOLUME 1700 [, mL/24 h]
--- NOTE | 2018-05-25 19:47 | CP.PCM.DIS ---
Provider - Provider Date of Admission: 05/12/18 19:07 Attending physician: Tamiko Truong MD Time Spent in preparation of Discharge (in minutes): 45 Hospital Course - Lab Results Lab Results: Most Recent Lab Values WBC 6.5 K/uL (4.8-10.8) 05/12/18 17:50 RBC 4.69 Mil/uL (4.40-5.90) 05/12/18 17:50 Hgb 13.0 g/dL (12.0-18.0) 05/12/18 17:50 Hct 38.9 % (35.0-51.0) 05/12/18 17:50 MCV 82.9 fL (80.0-94.0) 05/12/18 17:50 MCH 27.6 pg (27.0-31.0) 05/12/18 17:50 MCHC 33.3 g/dL (33.0-37.0) 05/12/18 17:50 RDW 16.3 % (11.5-14.5) H 05/12/18 17:50 Plt Count 106 K/uL (130-400) L 05/12/18 17:50 MPV 9.2 fL (7.2-11.7) 05/12/18 17:50 Neut % (Auto) 41.0 % (50.0-75.0) L 05/12/18 17:50 Lymph % (Auto) 52.0 % (20.0-40.0) H 05/12/18 17:50 [place] % (Auto) 5.9 % (0.0-10.0) 05/12/18 17:50 Eos % (Auto) 0.6 % (0.0-4.0) 05/12/18 17:50 Baso % (Auto) 0.5 % (0.0-2.0) 05/12/18 17:50 Neut # (Auto) 2.7 K/uL (1.8-7.0) 05/12/18 17:50 Lymph # (Auto) 3.4 K/uL (1.0-4.3) 05/12/18 17:50 [place] # (Auto) 0.4 K/uL (0.0-0.8) 05/12/18 17:50 Eos # (Auto) 0.0 K/uL (0.0-0.7) 05/12/18 17:50 Baso # (Auto) 0.0 K/uL (0.0-0.2) 05/12/18 17:50 Differential Comment 05/12/18 17:50 ESR 10 mm/hr (0-15) 05/13/18 12:08 Sodium 141 mmol/L (132-148) 05/12/18 17:50 Potassium 3.8 mmol/L (3.6-5.2) 05/12/18 17:50 Chloride 105 mmol/L (98-107) 05/12/18 17:50 Carbon Dioxide 26 mmol/L (22-30) 05/12/18 17:50 Anion Gap 14 (10-20) 05/12/18 17:50 BUN 11 mg/dL (9-20) 05/12/18 17:50 Creatinine 0.8 mg/dL (0.8-1.5) 05/12/18 17:50 Est GFR ( Amer) > 60 05/12/18 17:50 Est GFR (Non-Af Amer) > 60 05/12/18 17:50 Random Glucose 99 mg/dL (75-110) 05/12/18 17:50 Hemoglobin A1c 5.8 % (4.2-6.5) 05/13/18 12:08 Calcium 9.3 mg/dl (8.6-10.4) 05/12/18 17:50 Total Bilirubin 0.4 mg/dL (0.2-1.3) 05/12/18 17:50 AST 19 U/L (17-59) 05/12/18 17:50 ALT 26 U/L (21-72) 05/12/18 17:50 Alkaline Phosphatase 161 U/L (38-126) H 05/12/18 17:50 C-Reactive Protein < 5.00 mg/L (0.0-9.9) 05/13/18 12:08 Total Protein 6.8 g/dL (6.3-8.3) 05/12/18 17:50 Albumin 4.2 g/dL (3.5-5.0) 05/12/18 17:50 Globulin 2.6 gm/dL (2.2-3.9) 05/12/18 17:50 Albumin/Globulin Ratio 1.6 (1.0-2.1) 05/12/18 17:50 Homocysteine 9.3 umol/L (6.6-14.8) 05/13/18 12:08 Free T4 1.43 ng/dL (0.78-2.19) 05/13/18 12:08 TSH 3rd Generation 1.32 mIU/L (0.46-4.68) 05/13/18 12:08 Plasma Metanephrine <25 pg/mL (<=57) 05/13/18 12:08 Plasma Normetanephrine 126 pg/mL (<=148) 05/13/18 12:08 Plas Total Metaneph 126 pg/mL (<=205) 05/13/18 12:08 Urine Total Volume 1700 mL/24 h 05/15/18 14:04 Ur Epinephrine 24 Hr see note 05/15/18 14:04 U Norepinephrine 24 Hr 104 mcg/24 h (15-100) H 05/15/18 14:04 Ur Dopamine 24 Hr 380 mcg/24 h (52-480) 05/15/18 14:04 Serum Immunofixation Detected (Not Detected) H 05/13/18 12:08 RPR Nonreactive (NONREACTIVE) 05/13/18 12:08 - Hospital Course Hospital Course: HPI: 87-year-old male with history of hypertension, 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 But complication of the medication including hypertension, intracranial bleeding. Patient went to see oncologist to yesterday and today, as combining of increasing headache, both time patient was sent to the emergency room with uncontrolled hypertension and headache. In the emergency room patient was again evaluated today, had a CAT scan, showing no acute bleed. But the blood pressure still continued to be elevated, combining of severe headache, headache holocephalic, associated with this some nausea, sometimes having difficult time in walking Past medical history significant for hypertension, CLL, neutropenia and also significant abdominal lymphadenopathy. Allergies: No known drug allergy Personal history non-smoker nonalcoholic Surgical history none Family history noncontributory Review of system: Complaining of some headache, also complaining of some nausea, abdominal pain, left lower quadrant pain noted, did not have any bowel movements. No fever noted, chills negative Poor intake noted But appetite is good On examination: Vital signs noted. Mild tachycardia noted, low-grade fever noted. Blood pressure slightly elevated Chest bilateral good air entry Regular heart sounds Abdominal tenderness in the left lower quadrant noted. Edema negative 05/12/18 17:50 05/12/18 17:50 Assessment and recommendation: CAT scan of the headis negative Assessment and recommendation: 86-year-old male with a history of CLL, hypertension with the neutropenia and abdominal lymphadenopathy Admitted now with acute hypertension. Associated with a headache. Underlying acute migraine cannot be ruled out. Secondary to medication competition. Less likely bleeding We'll start the patient on oral antihypertensive. Neurological evaluation. DVT GI prophylaxis continue to monitor the blood pressure and will follow the patient Course in the Hospital: Patient underwent a CT scan of the head, MRI, did not reveal any acute pathology , no evidence of secondaries. Blood pressure is still continues to be elevated. He was started on hydralazine 25 mg 3 times a day, metoprolol XL 100 mg daily, amlodipine 10 mg daily. Allopurinol 100 and milligrams daily. Ibrutinib 140 mg capsule daily. Patient will continue pantoprazole 40 mg daily. He will follow up as an outpatient. Follow-up with the oncologist Discharge Plan - Discharge Medications Prescriptions: hydrALAZINE [Apresoline] 25 mg PO TID 90 Days tab amLODIPine [Norvasc] 10 mg PO DAILY 30 Days tab Metoprolol Succinate XL [Toprol XL] 100 mg PO DAILY 30 Days tab - Follow Up Plan Condition: GUARDED Disposition: HOME/ ROUTINE Instructions: High Blood Pressure (DC), Low Salt Diet, Amlodipine, Hydralazine , Metoprolol Additional Instructions: FOLLOW UP WITH DR TRUONG IN HIS OFFICE NEXT WEEK ---CALL FOR APPOINTMENT FOLLOW UP WITH DR WHARTON AT HIS OFFICE NEXT WEEK ---CALL FOR APPOINTMENT CONTINUE HOME MEDICATION NEW PRESCRIPTION GIVEN TROPOL XL 100 MG PO DAILY HYDRALIZYNE 25 MG PO TID NORVASC 10 MG PO DAILY STOP TAKING METORPOLOL 50 MG / NORVASC 5MG ACTIVITY TOLERATED CALL DR TRUONG OR GO TO THE EMERGENCY ROOM IF SYMPTOM RETURN OR WORSENING SEGUIR CON DR TRUONG EN AWAD OFICINA LA PRXIMA SEMANA --- [place] SEGUIR CON DR WHARTON EN AWAD OFICINA LA PRXIMA SEMANA --- [place] [facility] NOMBRAMIENT[facility] CONTINUAR MEDICAMENTOS EN EL HOGAR NUEVA PRESCRIPCIN YONG TROPOL XL 100 MG PO DAILY HYDRALIZYNE 25 MG PO TID NORVASC 10 MG PO DAILY DEJE DE YANETH METORPOLOL 50 MG / NORVASC 5MG ACTIVIDAD TOLERADA LLAME AL DR. DR. TRUONG O RUPINDER A LA EARLINE DE EMERGENCIAS SI EL SNTOMA REGRESA O EMPEORA Referrals: Frankie Wharton MD [Staff Provider] - 1 Week Tamiko Truong MD [Staff Provider] - 1 Week Maria Isabel Patel MD [Staff Provider] -
--- NOTE | 2018-05-25 19:47 | CP.PCM.PN ---
Subjective - Date & Time of Evaluation Date of Evaluation: 05/14/18 Time of Evaluation: 19:47 - Subjective Subjective: The patient still continues to headache. He is eating well otherwise. No nausea no vomiting noted. Seen by neurologist. CAT scan of the head is negative Vital signs stable. Elevated systolic blood pressure noted. Medication was adjusted. We'll continue to monitor. Also seen by oncologist. Assessment: 87-year-old male with a history of CLL, abdominal lymphadenopathy recent diverticulosis admitted with acute hypertension. Most likely secondary to chemotherapy-induced. Will continue to monitor and will follow the patient Objective - Vital Signs/Intake and Output Vital Signs (last 24 hours): Temp Pulse Resp BP Pulse Ox 98.1 F 70 20 136/80 96 05/15/18 15:52 05/15/18 15:52 05/15/18 15:52 05/15/18 15:52 05/15/18 15:52 - Labs Labs: 05/12/18 17:50 05/12/18 17:50
--- NOTE | 2018-05-25 19:47 | CP.PCM.PN ---
Subjective - Date & Time of Evaluation Date of Evaluation: 05/13/18 Time of Evaluation: 19:46 - Subjective Subjective: The patient still continues to headache. He is eating well otherwise. No nausea no vomiting noted. Seen by neurologist. CAT scan of the head is negative Vital signs stable. Elevated systolic blood pressure noted. Medication was adjusted. We'll continue to monitor. Also seen by oncologist. Assessment: 87-year-old male with a history of CLL, abdominal lymphadenopathy recent diverticulosis admitted with acute hypertension. Most likely secondary to chemotherapy-induced. Will continue to monitor and will follow the patient Objective - Vital Signs/Intake and Output Vital Signs (last 24 hours): Temp Pulse Resp BP Pulse Ox 98.1 F 70 20 136/80 96 05/15/18 15:52 05/15/18 15:52 05/15/18 15:52 05/15/18 15:52 05/15/18 15:52 - Labs Labs: 05/12/18 17:50 05/12/18 17:50
== END 2018-05-15 16:54 | disposition home or self-care (01) | DRG 305 ==
LOC: C.ER 15:17 → C.9E 19:07 → C.5S 22:19
PROVIDERS: ADMIT Internal Medicine; ATTEND Internal Medicine
DX: I10 Essential (primary) hypertension (principal); C91.10 Chronic lymphocytic leukemia of B-cell type not having achieved remission; H54.61 Unqualified visual loss, right eye, normal vision left eye; H40.9 Unspecified glaucoma; G62.9 Polyneuropathy, unspecified; H50.011 Monocular esotropia, right eye; R29.2 Abnormal reflex; G43.909 Migraine, unspecified, not intractable, without status migrainosus; E78.00 Pure hypercholesterolemia, unspecified; E27.9 Disorder of adrenal gland, unspecified